=== PATIENT | female | born 1930 | race Caucasian/White ===

== ENCOUNTER 2016-08-25 19:17 | Emergency (ER) | payer OTHER, BC ==
[~2016-08-25] VITALS: Ht 170.2 cm; Wt 92.5 kg
[~2016-08-25 19:17] MED LIST: ASPI81TA28 PO; B-COTAB18 PO; CHOL100010 PO; COEN1CAP PO; DILT-203 PO; FURO-85 PO; GLUC-172 PO; NTRGSL/4 UT; PANT1TAB48 PO; POTA10CA28 PO; RAMI2.5C PO; SALI0.6517; WARF6TAB5 PO
[2016-08-25 19:22] VITALS: TEMP 37; Ht 170.2 cm; Wt 92.5 kg
--- NOTE | 2016-08-25 21:07 | DIAGNOSTIC IMAGING REPORT ---
LEFT PELVIS/UNILATERAL HIP 2-3VIEWS CLINICAL HISTORY: Left hip pain. Unable to weight. No known trauma. COMPARISON: None FINDINGS: The sacroiliac joints and symphysis pubis are intact. There is no acute fracture within the pelvis or hips. Moderate bilateral hip arthritis, greater on the left is noted. Degenerative changes at the symphysis pubis are noted. IMPRESSION: 1. No acute fracture within the pelvis or hips. 2. Moderate arthritis of the bilateral hips, greater on the left. Electronically signed by: Jair Hurtado M.D. 08/25/2016 9:05 PM Dictated Date/Time: 08/25/2016 9:03 PM
[2016-08-25] MEDS ORDERED: VTMD1000 PO (21:27)
[2016-08-25] MEDS ORDERED: RAMI5CAP PO (21:27)
[2016-08-25] MEDS: OXYCODONE HCL IR 5 MG TAB (IMMEDIATE RELEASE) PO STA ×2 (21:28→21:48)
[2016-08-25] MEDS ORDERED: OXYCODONE IR HOME PACK PO ONE (21:45)
[2016-08-25] MEDS ORDERED: ONDANSETRON 4MG OD TAB PO ONE (21:45)
[2016-08-25 22:46] VITALS: BP 188/79; PULSE 61; O2SAT 93
--- NOTE | 2016-08-26 02:12 | EMERGENCY ROOM VISIT NOTE ---
History Report prepared by Aure: Mat Rodriguez Under the Supervision of: Dr. Julio Mckeon D.O. First contact with patient: 19:20 Chief Complaint: HIP PAIN Stated Complaint: HIP PAIN History of Present Illness The patient is an 86 year old female who presents to the Emergency Room with complaints of worsening pain in her right hip that began several days prior to arrival. The patient states that she has been having issues with her hip for several days, but it began to worsen throughout the day today. Today she noticed that she was having trouble walking secondary to her hip pain. She has not had any falls and has had no hip surgeries in the past. She denies any unusual back pains aside from her normal spasms that she has had for years. She lives in [place] with her . The patient denies headache, change in vision, fevers, chest pain, shortness of breath, nausea, vomiting, diarrhea, pain with urination, and melena. Source of History: patient Onset: Several days [employer] Position: other (Left Hip) Timing: worsening Associated Symptoms: No back pain, No fevers Review of Systems See HPI for pertinent positives & negatives. A total of 10 systems reviewed and were otherwise negative. Past Medical & Surgical Medical Problems: (1) Atrial flutter (2) Benign essential hypertension (3) CHF (congestive heart failure) (4) Unstable angina Surgical Problems: (1) Stented coronary artery Family History No significant family history Social History Smoking Status: Never Smoker Drug Use: none Marital Status: Housing Status: lives with significant other Occupation Status: retired Current/Historical Medications Scheduled Aspirin (Aspirin Ec), 81 MG PO DAILY B-Complex Vitamins (Vitamin B Complex), 1 TAB PO DAILY Cholecalciferol (Vitamin D3), 2,000 UNIT PO QAM Coenzyme Q10 (Ubidecarenone) (Co Q10), 1 CAP PO DAILY Furosemide (Lasix), 20 MG PO BID Glucosamine Sulfate (Glucosamine), 500 MG PO DAILY Nitroglycerin (Nitrostat), 0.4 MG UT PRN Pantoprazole (Protonix), 40 MG PO DAILY Potassium Chloride (Micro-K Ext Rel), 10 MEQ PO DAILY Ramipril (Ramipril), 5 MG PO BID Warfarin Sod (Jantoven), 6 MG PO QPM Allergies Coded Allergies: Morphine (Verified Allergy, Unknown, MAKES HER SICK, 08/25/16) Tetracycline (Verified Allergy, Unknown, ., 08/25/16) Physical Exam Vital Signs Date Time Temp Pulse Resp B/P Pulse Ox O2 Delivery O2 Flow Rate FiO2 08/25/16 22:46 61 16 188/79 93 08/25/16 22:31 61 16 188/79 93 Room Air 08/25/16 20:33 62 16 190/88 93 Room Air 08/25/16 19:22 37.0 56 16 174/73 94 Room Air Physical Exam GENERAL: laying in bed, well appearing, well nourished, no distress, non-toxic EYE EXAM: normal conjunctiva. OROPHARYNX: mucous membranes are moist LUNGS: Clear to auscultation. Normal chest wall mechanics HEART: no murmurs, S1 normal and S2 normal ABDOMEN: abdomen soft, non-tender, normo-active bowel sounds, no masses, no rebound or guarding. BACK: Back is symmetrical on inspection and there is no deformity, no midline tenderness, no CVA tenderness. UPPER EXTREMITIES: upper extremities are grossly normal. LOWER EXTREMITIES: Left hip with acute tenderness, posteriorly. Full ROM of left hip, knee, and ankle. DP 2/4 and sensation in tact. NEURO EXAM: Normal sensorium Medical Decision & Procedures ER Provider Diagnostic Interpretation: Xray results per the radiologist and my interpretation. LEFT PELVIS/UNILATERAL HIP 2-3VIEWS CLINICAL HISTORY: Left hip pain. Unable to weight. No known trauma. COMPARISON: None FINDINGS: The sacroiliac joints and symphysis pubis are intact. There is no acute fracture within the pelvis or hips. Moderate bilateral hip arthritis, greater on the left is noted. Degenerative changes at the symphysis pubis are noted. IMPRESSION: 1. No acute fracture within the pelvis or hips. 2. Moderate arthritis of the bilateral hips, greater on the left. Electronically signed by: Jair Hurtado M.D. 08/25/2016 9:05 PM Dictated Date/Time: 08/25/2016 9:03 PM Medications Administered Medications (Trade) Dose Ordered Sig/Eron Route Start Time Stop Time Status Last Admin Dose Admin Oxycodone HCl (Roxicodone Immediate Rel Tab) 5 mg NOW STAT PO 08/25/16 21:01 08/25/16 21:02 DC 08/25/16 21:48 5 MG Ondansetron HCl (Zofran Odt) 4 mg ONE ONCE PO 2/21/17 21:45 08/25/16 21:46 DC 08/25/16 21:48 4 MG Oxycodone HCl (Roxicodone Immediate Rel 5MG Home Pack) 1 homepack UD ONCE PO 08/25/16 21:45 08/25/16 21:46 DC 08/25/16 22:40 1 HOMEPACK ED Course ED COURSE: Vital signs were reviewed and showed normal vitals. The patients medical record was reviewed The above diagnostic studies were performed and reviewed. ED treatments and interventions as stated above. 1940: The patient was evaluated in room A10. A complete history and physical examination was performed. 2100: Ordered Oxycodone HCl 5 mg PO. 2144: Ordered Oxycodone HCl 1 homepack PO, Zofran 4 mg PO. 2138: Upon reevaluation, the patient is currently declining Oxy IR and would like to go home.I discussed my findings with the patient and sh understands and agrees with the treatment plan. Based on the patients age, coexisting illnesses, exam and lab findings the decision to treat as an outpatient was made. The patient remained stable while under my care. The patient appeared well at the time of discharge. Medical Decision Differential diagnosis: Etiologies such as fracture, dislocation, neurovascular compromise, compartment syndrome, soft tissue injury, as well as others were entertained. Patient is an 86 year old female who presents the ER for left hip pain. No trauma. No fevers. On exam she is acute reproducible tenderness just posterior to the left. This does appear to be in the bursa. She does have full range of motion of the hip knee and ankle with mild pain with range of motion of the hip. Joint does not appear to be infected. Vitals are stable. Patient was given oral OxyIR and had significant improvement of her pain. She was able to ambulate following x-rays of her pelvis and hip which showed no acute fractures. She does have severe arthritis. She is discharged with OxyIR and instructed to follow up with orthopedics within the next week. Discussed with Pt concerning signs and symptoms to watch out for. Pt was instructed to follow up with their PCP and discussed with the patient their option to return to the ED at anytime for persistent or worsening symptoms. The appropriate anticipatory guidance and out-patient management, including indications for return to the emergency department, were explained at length to the patient and understood. Impression Primary Impression: Hip pain, left Additional Impression: Arthritis Scribe Attestation The scribe's documentation has been prepared under my direction and personally reviewed by me in its entirety. I confirm that the note above accurately reflects all work, treatment, procedures, and medical decision making performed by me. Departure Information Dispostion Home / Self-Care Referrals Luke Gardiner M.D. (PCP) Forms HOME CARE DOCUMENTATION FORM, IMPORTANT VISIT INFORMATION, WORK / SCHOOL INSTRUCTIONS Patient Instructions My [facility] Additional Instructions Please follow up with your primary care doctor with in the next 24 hours. Any worsening of your symptoms, please return to the ED immediately. This includes worsening pain, fevers greater than 100.4, inability to walk, or any other concerning signs or symptoms from your standpoint. You were given medications during this visit that will inhibit your ability to drive, operate machinery and work. Please do NOT drive, operate machinery or work for the next 12hrs. You were also given a tablets for OXY IR. While taking this medication you should also not drive, operate machinery and or work. Problem Qualifiers
[2017-01-25] MEDS ORDERED: WARF6TAB5 PO (15:23)
[2017-01-25] MEDS ORDERED: TRAM-10 PO (15:32)
[2017-04-05] MEDS ORDERED: CEPH500C PO (13:23)
[2017-04-07] MEDS ORDERED: CIPR1TAB11 PO (13:42)
== END 2016-08-25 22:51 | disposition home or self-care (01) ==
LOC: EDBD 19:17 → C.EDA 19:17
DX: M25.552 Pain in left hip (principal); M19.90 Unspecified osteoarthritis, unspecified site; I48.92 Unspecified atrial flutter; I10 Essential (primary) hypertension; I50.9 Heart failure, unspecified; I20.0 Unstable angina; Z79.82 Long term (current) use of aspirin; M08.451 Pauciarticular juvenile rheumatoid arthritis, right hip; M08.4 Pauciarticular juvenile rheumatoid arthritis

== ENCOUNTER → 2016-09-07 | Outpatient (CLI) | payer OTHER, BC ==
[~2016-09-07] MED LIST changes: +ACET-1047 PO; +CEPH500C PO; -CHOL100010 PO; +CIPR1TAB11 PO; -DILT-203 PO; +MAGN400T6 PO; +MISC1CAP69 PO; +MULT-723 PO; -RAMI2.5C PO; +RAMI5CAP PO; -SALI0.6517; +TRAM-10 PO; +VTMD1000 PO
[2016-09-07 09:56] LABS: URINE APPEARANCE CLEAR (CLEAR); URINE BILIRUBIN NEG (NEG); URINE COLOR YELLOW; URINE NITRITE NEG (NEG); URINE PH 5.5 (4.5-7.5); URINE SPECIFIC GRAVITY 1.014 (1.000-1.030); UROBILINOGEN NEG (NEG)
[2016-09-07 09:58] LABS: MANUAL MICROSCOPIC REQUIRED? NO; REVIEW REQ? NO
== END | disposition home or self-care (01) ==
LOC: C.LABVPSUW 09:07
PROVIDERS: ATTEND Nurse Practitioner
DX: R30.0 Dysuria (principal)

== ENCOUNTER 2016-12-03 17:30 | Emergency (ER) | payer OTHER, BC ==
[~2016-12-03] VITALS: Ht 167.6 cm; Wt 93.8 kg
[~2016-12-03 17:30] MED LIST changes: -ACET-1047 PO; -CEPH500C PO; -CIPR1TAB11 PO; -MAGN400T6 PO; -MISC1CAP69 PO; -MULT-723 PO; -TRAM-10 PO
[2016-12-03 17:35] VITALS: O2SAT 97; Ht 167.6 cm; Wt 93.8 kg
--- NOTE | 2016-12-03 18:07 | EMERGENCY ROOM VISIT NOTE ---
History Report prepared by Aure: Alejandra Ash Under the Supervision of: Dr. Rod Aguilar M.D. First contact with patient: 17:54 Chief Complaint: SHORTNESS OF BREATH Stated Complaint: SOB W/EXERTION Nursing Triage Summary: Patient presents from residence at [place] at [facility] in the independent housing via ALS ambulance following an episode of shortness of breath while walking upstairs Reportedly the patient was carrying an item with a staff member while walking up the stairs when she became short of breath and "her lips turned purple" Patient has a history of CHF and takes Lasix but has not taken the Lasix for the last two days Patient lung sounds are clear at present Patient has +2/+3 pitting edema from thighs to feet, she states this is normal for her History of Present Illness The patient is an 86 year old female who presents to the Emergency Room via ALS with complaints of persistent shortness of breath that began several days ago. The patient reports that today she took 40 mg of Lasix, and notes that she missed her doses the previous two days. The patient notes increased shortness of breath with exertion. She states that today she became short of breath with walking up the stairs and notes that there were reports that her lips turned blue. The patient reports that she takes Coumadin and states she uses supplemental oxygen at night. She denies any history of lung disease, but states that she is a previous smoker. The patient denies any increased cough or fever. Source of History: patient Onset: several days ago Position: other (global) Quality: other (shortness of breath) Timing: other (persistent) Associated Symptoms: No fevers, No cough Note: Associated Symptoms: blue lips Review of Systems See HPI for pertinent positives & negatives. A total of 10 systems reviewed and were otherwise negative. Past Medical & Surgical Medical Problems: (1) Atrial flutter (2) Benign essential hypertension (3) CHF (congestive heart failure) (4) Unstable angina Surgical Problems: (1) Stented coronary artery Family History No significant family history Social History Smoking Status: Unknown if Ever Smoked Drug Use: none Marital Status: Housing Status: lives with significant other Occupation Status: retired Current/Historical Medications Scheduled Aspirin (Aspirin Ec), 81 MG PO DAILY B-Complex Vitamins (Vitamin B Complex), 1 TAB PO DAILY Coenzyme Q10 (Ubidecarenone) (Co Q10), 1 CAP PO DAILY Furosemide (Lasix), 40 MG PO DAILY Glucosamine Sulfate (Glucosamine), 500 MG PO DAILY Nitroglycerin (Nitrostat), 0.4 MG UT PRN Pantoprazole (Protonix), 40 MG PO DAILY Potassium Chloride (Micro-K Ext Rel), 10 MEQ PO DAILY Ramipril (Ramipril), 5 MG PO BID Warfarin Sod (Jantoven), 6 MG PO QPM Allergies Coded Allergies: Morphine (Verified Allergy, Unknown, MAKES HER SICK, 12/03/16) Tetracycline (Verified Allergy, Unknown, ., 12/03/16) Physical Exam Vital Signs Date Time Temp Pulse Resp B/P (MAP) Pulse Ox O2 Delivery O2 Flow Rate FiO2 12/03/16 18:22 Room Air 12/03/16 17:39 61 12/03/16 17:35 36.8 64 16 207/88 97 Room Air 12/03/16 17:35 97 Room Air 12/03/16 17:35 97 Room Air Physical Exam GENERAL: Patient is in no acute distress. HEENT: No acute trauma, normocephalic atraumatic, mucous membranes moist, no nasal congestion, no scleral icterus. NECK: No stridor, no adenopathy, no meningismus, trachea is midline. LUNGS: Decreased breath sounds, but breath sounds are clear, no wheezing or rhonchi, breath sounds are equal. HEART: 2/6 systolic murmur with a regular rate and rhythm ABDOMEN: Soft, nontender, bowel sounds positive, no hernias, no peritonitis. EXTREMITIES: No cyanosis or edema, full range of motion of all the joints without pain or difficulty, no signs for acute trauma. NEUROLOGIC: Oriented x 3, no acute motor or sensory deficits, no focal weakness. SKIN: No rash, no jaundice, no diaphoresis. Medical Decision & Procedures ER Provider Diagnostic Interpretation: Radiology results as stated below per my review and radiologist interpretation: CHEST ONE VIEW PORTABLE HISTORY: EVALUATE RESPIRATORY DISTRESS.DYSPNEA COMPARISON: Chest 06/07/2015. FINDINGS: The heart remains mildly enlarged. Left-sided single lead pacemaker. No pleural effusions. No pneumothorax. The lungs are clear. No evidence for pulmonary edema. IMPRESSION: Stable mild cardiomegaly. Electronically signed by: Spike Jackson M.D. 12/03/2016 6:24 PM Dictated Date/Time: 12/03/2016 6:23 PM CHEST CTA for PULMONARY ARTERIES CT DOSE: 384.79 mGy.cm HISTORY: Respiratory distress. Dyspnea. TECHNIQUE: Multiaxial CT images of the chest were performed following the intravenous administration of contrast to evaluate the pulmonary arteries. Maximal intensity projection images were also obtained. COMPARISON STUDY: Chest 12/03/2016. FINDINGS: Normal caliber thoracic aorta. Evaluation for dissection is nondiagnostic due to the lack of contrast within the aorta. The heart is enlarged. Trace pericardial fluid. Small hiatus hernia. Heterogeneous perfusion within the distal left main pulmonary artery without definite filling defect to suggest a pulmonary embolus. Nondiagnostic evaluation of the right lower lobe subsegmental pulmonary arteries due to the motion artifact. The remaining pulmonary arteries show no evidence for pulmonary embolus. A few calcified granulomas within the left upper lobe anteriorly. Small lobular density within the left upper lobe measuring 1 cm. This has a branching pattern and favors an impacted distal bronchus. A few small tree-in-bud nodular opacities within the base of the left lower lobe a 4 mm nodule within the superior segment of the left lower lobe on image 188. 4 mm nodule within the right middle lobe on image 128. Cluster of calcified granulomas within the right middle lobe. Partial opacification of a distal right lower lobe bronchus. There are 2 adjacent nodules within the right lower lobe with the largest measuring 5 mm on image 108. Left-sided pacemaker. No pneumothorax. A few hypodense lesions within the liver measuring 1.2 cm. These favor cysts. There is also a 3.3 cm and 1.3 cm hypodense lesions within the spleen. Trace left pleural effusion. A 2.5 cm left thyroid nodule. No mediastinal or hilar lymphadenopathy. IMPRESSION: 1. No evidence for pulmonary embolus with limitations as described above. 2. Trace pericardial effusion and trace left pleural effusion. 3. Cardiomegaly. 4. A few scattered nodules within the lungs which favor impaction of a few distal bronchi. Therefore this favors a mild infectious bronchiolitis. However, one year chest CT follow up is recommended to ensure stability/resolution. 5. Nonspecific splenic and hypodense lesions. Electronically signed by: Spike Jackson M.D. 12/03/2016 7:28 PM Dictated Date/Time: 12/03/2016 7:17 PM Laboratory Results 12/03/16 18:00 Red Blood Count 4.33, Mean Corpuscular Volume 92.4, Mean Corpuscular Hemoglobin 30.0, Mean Corpuscular Hemoglobin Concent 32.5, Mean Platelet Volume 10.7, Neutrophils (%) (Auto) 66.0, Lymphocytes (%) (Auto) 21.7, Monocytes (%) (Auto) 9.0, Eosinophils (%) (Auto) 2.8, Basophils (%) (Auto) 0.3, Neutrophils # (Auto) 4.01, Lymphocytes # (Auto) 1.32, Monocytes # (Auto) 0.55, Eosinophils # (Auto) 0.17, Basophils # (Auto) 0.02 12/03/16 18:00 Test 12/03/16 18:00 White Blood Count 6.08 K/uL (4.8-10.8) Red Blood Count 4.33 M/uL (4.2-5.4) Hemoglobin 13.0 g/dL (12.0-16.0) Hematocrit 40.0 % (37-47) Mean Corpuscular Volume 92.4 fL (80-100) Mean Corpuscular Hemoglobin 30.0 pg (25-34) Mean Corpuscular Hemoglobin Concent 32.5 g/dl (32-36) Platelet Count 185 K/uL (130-400) Mean Platelet Volume 10.7 fL (7.4-10.4) Neutrophils (%) (Auto) 66.0 % Lymphocytes (%) (Auto) 21.7 % Monocytes (%) (Auto) 9.0 % Eosinophils (%) (Auto) 2.8 % Basophils (%) (Auto) 0.3 % Neutrophils # (Auto) 4.01 K/uL (1.4-6.5) Lymphocytes # (Auto) 1.32 K/uL (1.2-3.4) Monocytes # (Auto) 0.55 K/uL (0.11-0.59) Eosinophils # (Auto) 0.17 K/uL (0-0.5) Basophils # (Auto) 0.02 K/uL (0-0.2) RDW Standard Deviation 54.2 fL (36.4-46.3) RDW Coefficient of Variation 15.9 % (11.5-14.5) Immature Granulocyte % (Auto) 0.2 % Immature Granulocyte # (Auto) 0.01 K/uL (0.00-0.02) Prothrombin Time 14.0 SECONDS (9.0-12.0) Prothromb Time International Ratio 1.3 (0.9-1.1) Activated Partial Thromboplast Time 26.9 SECONDS (21.0-31.0) Partial Thromboplastin Ratio 1.0 Anion Gap 7.0 mmol/L (3-11) Est Creatinine Clear Calc Drug Dose 51.2 ml/min Estimated GFR () 66.2 Estimated GFR (Non- 57.1 BUN/Creatinine Ratio 17.1 (10-20) Calcium Level 8.8 mg/dl (8.5-10.1) Pro-B-Type Natriuretic Peptide 4201 pg/ml (0-1800) Laboratory results reviewed by me. ECG Indication: SOB/dyspnea Rate (beats per minute): 60 Rhythm: other (ventricular pacemaker) Findings: no acute ischemic change, no ectopy ED Course 1754: The patient was evaluated in room A11B. A complete history and physical exam was performed. 1935: I reevaluated the patient and she is resting comfortably. I discussed the exam findings with her and I discussed the treatment plan. She verbalized complete understanding and agreement. She is ready to go home. Medical Decision The patient is an 86 year old female who presents to the ED with complaints of shortness of breath. Differential diagnoses considered include fluid overload, CHF, cardiac ischemia, cardiac dysrhythmia, anemia, electrolyte imbalance, pneumonia, bronchitis. There is no leukocytosis or concerning anemia. INR is subtherapeutic at 1.3. This is low for someone using Coumadin. No significant electrolyte abnormality or kidney failure. BNP was elevated consistent with fluid overload. EKG shows a ventricular pacemaker, no acute ischemia. Chest film shows no pneumonia or CHF. There was no pneumothorax. Chest CT showed no PE, there were some potential nodules seen for which follow-up was suggested. A bronchiolitis was also thought possible. The patient has been diuresing since arrival. She had taken Lasix prior to arrival. She feels improved. She admits that she had not taken her Lasix for a few days, and in the past, she has had dyspnea when not using her Lasix. She denies any chest pain with today's event. She has not had fever or increased cough. The patient would like to be discharged, I think this is reasonable. I will have her double her Coumadin dose tonight as she is subtherapeutic. A repeat INR in several days has been suggested. She will take her Lasix as prescribed, she has agreed to take it as she realizes she needs it. If she has worsening dyspnea, any chest pain or fever, she will report back to the ER for reassessment. Medication Reconciliation: I attest that I have personally reviewed the patient' s current medication list. Blood Pressure Screening: Patient was found to have an elevated blood pressure and was referred to their primary doctor for recheck and further treatment. Impression Primary Impression: Shortness of breath Additional Impression: CHF (congestive heart failure) Scribe Attestation The scribe's documentation has been prepared under my direction and personally reviewed by me in its entirety. I confirm that the note above accurately reflects all work, treatment, procedures, and medical decision making performed by me. Departure Information Dispostion Home / Self-Care Referrals [facility] (PCP) Forms HOME CARE DOCUMENTATION FORM, IMPORTANT VISIT INFORMATION Patient Instructions My [facility] Additional Instructions be sure to take your lasix as prescribed see your [facility] md for a recheck--call for an appt return for worsening breathing or fever see your doctor to have your lungs followed by xray--some potential nodules were noted today for which good followup was suggested Problem Qualifiers
[2016-12-03 18:19] LABS: BASO % 0.3 %; BASO ABS # 0.02 K/uL (0-0.2); COMPLETE YES; EOS % 2.8 %; IG% 0.2 %; LYMPH % 21.7 %; LYMPH ABS # 1.32 K/uL (1.2-3.4); MEAN CELL VOLUME 92.4 fL (80-100); MEAN CORPUSCULAR HGB CONC 32.5 g/dl (32-36); MEAN PLATELET VOLUME 10.7 fL (7.4-10.4); PLATELET COUNT 185 K/uL (130-400); RED BLOOD COUNT 4.33 M/uL (4.2-5.4); WHITE BLOOD COUNT 6.08 K/uL (4.8-10.8)
--- NOTE | 2016-12-03 18:26 | DIAGNOSTIC IMAGING REPORT ---
CHEST ONE VIEW PORTABLE HISTORY: EVALUATE RESPIRATORY DISTRESS.DYSPNEA COMPARISON: Chest 06/07/2015. FINDINGS: The heart remains mildly enlarged. Left-sided single lead pacemaker. No pleural effusions. No pneumothorax. The lungs are clear. No evidence for pulmonary edema. IMPRESSION: Stable mild cardiomegaly. Electronically signed by: Spike Jackson M.D. 12/03/2016 6:24 PM Dictated Date/Time: 12/03/2016 6:23 PM
[2016-12-03 18:31] LABS: BUN/CREATININE RATIO 17.1 (10-20); CALCIUM 8.8 mg/dl (8.5-10.1); CREATININE 0.91 mg/dl (0.60-1.20); INR 1.3 (0.9-1.1); POTASSIUM 3.8 mmol/L (3.5-5.1)
[2016-12-03] MEDS ORDERED: OPTIRAY 320 IV PRN (18:45)
--- NOTE | 2016-12-03 19:29 | DIAGNOSTIC IMAGING REPORT ---
CHEST CTA for PULMONARY ARTERIES CT DOSE: 384.79 mGy.cm HISTORY: Respiratory distress. Dyspnea. TECHNIQUE: Multiaxial CT images of the chest were performed following the intravenous administration of contrast to evaluate the pulmonary arteries. Maximal intensity projection images were also obtained. COMPARISON STUDY: Chest 12/03/2016. FINDINGS: Normal caliber thoracic aorta. Evaluation for dissection is nondiagnostic due to the lack of contrast within the aorta. The heart is enlarged. Trace pericardial fluid. Small hiatus hernia. Heterogeneous perfusion within the distal left main pulmonary artery without definite filling defect to suggest a pulmonary embolus. Nondiagnostic evaluation of the right lower lobe subsegmental pulmonary arteries due to the motion artifact. The remaining pulmonary arteries show no evidence for pulmonary embolus. A few calcified granulomas within the left upper lobe anteriorly. Small lobular density within the left upper lobe measuring 1 cm. This has a branching pattern and favors an impacted distal bronchus. A few small tree-in-bud nodular opacities within the base of the left lower lobe a 4 mm nodule within the superior segment of the left lower lobe on image 188. 4 mm nodule within the right middle lobe on image 128. Cluster of calcified granulomas within the right middle lobe. Partial opacification of a distal right lower lobe bronchus. There are 2 adjacent nodules within the right lower lobe with the largest measuring 5 mm on image 108. Left-sided pacemaker. No pneumothorax. A few hypodense lesions within the liver measuring 1.2 cm. These favor cysts. There is also a 3.3 cm and 1.3 cm hypodense lesions within the spleen. Trace left pleural effusion. A 2.5 cm left thyroid nodule. No mediastinal or hilar lymphadenopathy. IMPRESSION: 1. No evidence for pulmonary embolus with limitations as described above. 2. Trace pericardial effusion and trace left pleural effusion. 3. Cardiomegaly. 4. A few scattered nodules within the lungs which favor impaction of a few distal bronchi. Therefore this favors a mild infectious bronchiolitis. However, one year chest CT follow up is recommended to ensure stability/resolution. 5. Nonspecific splenic and hypodense lesions. Electronically signed by: Spike Jackson M.D. 12/03/2016 7:28 PM Dictated Date/Time: 12/03/2016 7:17 PM
[2016-12-03 19:51] VITALS: BP 207/88; PULSE 61; TEMP 36.8; O2SAT 97
[2017-01-25] MEDS ORDERED: WARF6TAB5 PO (15:23)
[2017-01-25] MEDS ORDERED: TRAM-10 PO (15:32)
[2017-04-05] MEDS ORDERED: CEPH500C PO (13:23)
[2017-04-07] MEDS ORDERED: CIPR1TAB11 PO (13:42)
== END 2016-12-03 20:27 | disposition home or self-care (01) ==
LOC: EDBD 17:30 → C.EDA 17:31
DX: I50.9 Heart failure, unspecified (principal); Z79.82 Long term (current) use of aspirin; Z79.899 Other long term (current) drug therapy; Z79.01 Long term (current) use of anticoagulants; I48.92 Unspecified atrial flutter; I10 Essential (primary) hypertension; Z95.5 Presence of coronary angioplasty implant and graft

== ENCOUNTER 2016-12-08 11:57 | Observation (INO) | payer OTHER, BC ==
[~2016-12-08] VITALS: Ht 170.2 cm; Wt 86.5 kg
[~2016-12-08 11:57] MED LIST changes: -VTMD1000 PO
[2016-12-08 12:31] LABS: BASO % 0.6 %; BASO ABS # 0.04 K/uL (0-0.2); COMPLETE YES; EOS % 1.7 %; HEMATOCRIT 43.3 % (37-47); IG% 0.1 %; LYMPH ABS # 1.25 K/uL (1.2-3.4); MEAN CELL VOLUME 91.5 fL (80-100); MEAN CORPUSCULAR HGB CONC 31.6 g/dl (32-36); MEAN PLATELET VOLUME 10.4 fL (7.4-10.4); MONO % 7.9 %; NEUT % 71.7 %; PLATELET COUNT 197 K/uL (130-400); RED BLOOD COUNT 4.73 M/uL (4.2-5.4); WHITE BLOOD COUNT 6.95 K/uL (4.8-10.8)
[2016-12-08 12:37] LABS: INR 1.8 (0.9-1.1); PROTHROMBIN TIME (PATIENT) 19.5 SECONDS (9.0-12.0)
[2016-12-08 12:46] LABS: BLOOD UREA NITROGEN 23 mg/dl (7-18); BUN/CREATININE RATIO 23.3 (10-20); CALCIUM 8.8 mg/dl (8.5-10.1); CARBON DIOXIDE 34 mmol/L (21-32); CHLORIDE 106 mmol/L (98-107); CREATININE 0.98 mg/dl (0.60-1.20); GLUCOSE 87 mg/dl (70-99); POTASSIUM 3.8 mmol/L (3.5-5.1); SODIUM 145 mmol/L (136-145)
[2016-12-08 12:51] LABS: CKMB/CK RATIO 3.6 (0-3.0)
--- NOTE | 2016-12-08 13:25 | DIAGNOSTIC IMAGING REPORT ---
CHEST ONE VIEW PORTABLE CLINICAL HISTORY: Chest pain. COMPARISON STUDY: Chest radiograph and chest CT December 03, 2016. FINDINGS: A single lead left pacemaker is unchanged in position. Moderate cardiomegaly is noted without evidence of pulmonary edema. No pneumothorax or pleural effusion is identified. There is no consolidation to suggest pneumonia. IMPRESSION: No acute cardiopulmonary findings. No change in appearance of the chest. Electronically signed by: Jair Hurtado M.D. 12/08/2016 1:24 PM Dictated Date/Time: 12/08/2016 1:22 PM
--- NOTE | 2016-12-08 13:30 | EMERGENCY ROOM VISIT NOTE ---
History Report prepared by Aure: Lin Noland Under the Supervision of: Dr. Julio Mckeon D.O. First contact with patient: 11:59 Stated Complaint: CHEST PAIN History of Present Illness The patient is a 86 year old female who presents to the Emergency Room via EMS with complaints of resolved mid-chest pain starting about 2 hours ago. She reports pain radiation from mid-back to mid-chest. She describes it to be a pressure-like pain. She denies any exertion at the onset of her symptoms. She was given 1 Nitro and 324 mg Aspirin via EMS with relief. She currently denies any pain. Pt denies any recent trauma or falls, headache, change in vision, fevers, arm or jaw pain, nausea, vomiting, diarrhea, pain with urination, and melena. She has chronic shortness of breath which has not worsened. She wears oxygen at night. She has a pacemaker which was placed in June 2016. She has a history of congestive heart failure. She is on Coumadin. She denies any history of problems with the aorta. She has a history of myocardial infarction and denies any similar pain today. Source of History: patient Onset: about 2 hours ago Position: chest (mid) Quality: pressure Timing: resolved Modifying Factors (Relieving): other (1 Nitro and 324 mg Aspirin with relief ) Associated Symptoms: + SOB (chronic), No fevers, No headache, No nausea, No vomiting, No diarrhea Review of Systems See HPI for pertinent positives & negatives. A total of 10 systems reviewed and were otherwise negative. Past Medical & Surgical Medical Problems: (1) Atrial flutter (2) Atrial flutter, paroxysmal (3) Benign essential hypertension (4) CHF (congestive heart failure) (5) Unstable angina Surgical Problems: (1) Stented coronary artery Family History No significant family history Social History Smoking Status: Unknown if Ever Smoked Drug Use: none Marital Status: Housing Status: lives with significant other Occupation Status: retired Current/Historical Medications Scheduled Aspirin (Aspirin Ec), 81 MG PO DAILY B-Complex Vitamins (Vitamin B Complex), 1 TAB PO DAILY Coenzyme Q10 (Ubidecarenone) (Co Q10), 1 CAP PO DAILY Furosemide (Lasix), 40 MG PO DAILY Glucosamine Sulfate (Glucosamine), 500 MG PO DAILY Nitroglycerin (Nitrostat), 0.4 MG UT PRN Pantoprazole (Protonix), 40 MG PO DAILY Potassium Chloride (Micro-K Ext Rel), 10 MEQ PO DAILY Ramipril (Ramipril), 5 MG PO BID Warfarin Sod (Jantoven), 6 MG PO QPM Allergies Coded Allergies: Morphine (Verified Allergy, Unknown, MAKES HER SICK, 12/08/16) Tetracycline (Verified Allergy, Unknown, ., 12/08/16) Physical Exam Vital Signs Date Time Temp Pulse Resp B/P (MAP) Pulse Ox O2 Delivery O2 Flow Rate FiO2 12/08/16 13:51 98 Room Air 12/08/16 13:30 60 22 178/74 96 Room Air 12/08/16 13:06 62 22 135/76 98 Room Air 12/08/16 12:12 60 12/08/16 12:09 36.5 63 18 176/80 95 Room Air 12/08/16 12:09 95 Room Air 12/08/16 12:09 95 Room Air Physical Exam GENERAL: Sitting up in bed disheveled, non-toxic EYE EXAM: normal conjunctiva OROPHARYNX: no exudate, no erythema, lips, buccal mucosa, and tongue normal and mucous membranes are moist NECK: supple, no nuchal rigidity, no adenopathy, non-tender CHEST: Pacemaker located in left upper chest LUNGS: Clear to auscultation. Normal chest wall mechanics HEART: no murmurs, S1 normal and S2 normal ABDOMEN: abdomen soft, non-tender, normo-active bowel sounds, no masses, no rebound or guarding. BACK: Back is symmetrical on inspection and there is no deformity, no midline tenderness, no CVA tenderness. SKIN: no rashes and no bruising UPPER EXTREMITIES: upper extremities are grossly normal. Radial pulses are equal bilaterally LOWER EXTREMITIES: No pitting edema. Calves are equal bilaterally NEURO EXAM: Normal sensorium, cranial nerves II-XII grossly intact, normal speech, no gross weakness of arms, no gross weakness of legs. Medical Decision & Procedures ER Provider Diagnostic Interpretation: X-ray results as stated below per my and the radiologist's interpretation: CHEST ONE VIEW PORTABLE CLINICAL HISTORY: Chest pain. COMPARISON STUDY: Chest radiograph and chest CT December 03, 2016. FINDINGS: A single lead left pacemaker is unchanged in position. Moderate cardiomegaly is noted without evidence of pulmonary edema. No pneumothorax or pleural effusion is identified. There is no consolidation to suggest pneumonia. IMPRESSION: No acute cardiopulmonary findings. No change in appearance of the chest. Electronically signed by: Jair Hurtado M.D. 12/08/2016 1:24 PM Dictated Date/Time: 12/08/2016 1:22 PM Laboratory Results 12/08/16 12:17 Red Blood Count 4.73, Mean Corpuscular Volume 91.5, Mean Corpuscular Hemoglobin 29.0, Mean Corpuscular Hemoglobin Concent 31.6, Mean Platelet Volume 10.4, Neutrophils (%) (Auto) 71.7, Lymphocytes (%) (Auto) 18.0, Monocytes (%) (Auto) 7.9, Eosinophils (%) (Auto) 1.7, Basophils (%) (Auto) 0.6, Neutrophils # (Auto) 4.98, Lymphocytes # (Auto) 1.25, Monocytes # (Auto) 0.55, Eosinophils # (Auto) 0.12, Basophils # (Auto) 0.04 12/08/16 12:17 Test 12/08/16 12:17 White Blood Count 6.95 K/uL (4.8-10.8) Red Blood Count 4.73 M/uL (4.2-5.4) Hemoglobin 13.7 g/dL (12.0-16.0) Hematocrit 43.3 % (37-47) Mean Corpuscular Volume 91.5 fL (80-100) Mean Corpuscular Hemoglobin 29.0 pg (25-34) Mean Corpuscular Hemoglobin Concent 31.6 g/dl (32-36) Platelet Count 197 K/uL (130-400) Mean Platelet Volume 10.4 fL (7.4-10.4) Neutrophils (%) (Auto) 71.7 % Lymphocytes (%) (Auto) 18.0 % Monocytes (%) (Auto) 7.9 % Eosinophils (%) (Auto) 1.7 % Basophils (%) (Auto) 0.6 % Neutrophils # (Auto) 4.98 K/uL (1.4-6.5) Lymphocytes # (Auto) 1.25 K/uL (1.2-3.4) Monocytes # (Auto) 0.55 K/uL (0.11-0.59) Eosinophils # (Auto) 0.12 K/uL (0-0.5) Basophils # (Auto) 0.04 K/uL (0-0.2) RDW Standard Deviation 52.7 fL (36.4-46.3) RDW Coefficient of Variation 15.5 % (11.5-14.5) Immature Granulocyte % (Auto) 0.1 % Immature Granulocyte # (Auto) 0.01 K/uL (0.00-0.02) Prothrombin Time 19.5 SECONDS (9.0-12.0) Prothromb Time International Ratio 1.8 (0.9-1.1) Anion Gap 5.0 mmol/L (3-11) Est Creatinine Clear Calc Drug Dose 47.2 ml/min Estimated GFR () 60.5 Estimated GFR (Non- 52.2 BUN/Creatinine Ratio 23.3 (10-20) Calcium Level 8.8 mg/dl (8.5-10.1) Total Bilirubin 0.7 mg/dl (0.2-1) Direct Bilirubin 0.1 mg/dl (0-0.2) Aspartate Amino Transf (AST/SGOT) 21 U/L (15-37) Alanine Aminotransferase (ALT/SGPT) 18 U/L (12-78) Alkaline Phosphatase 70 U/L (45-117) Total Creatine Kinase 36 U/L (26-192) Creatine Kinase MB 1.3 ng/ml (0.5-3.6) Creatine Kinase MB Ratio 3.6 (0-3.0) Troponin I < 0.015 ng/ml (0-0.045) Total Protein 7.3 gm/dl (6.4-8.2) Albumin 3.4 gm/dl (3.4-5.0) ECG Indication: chest pain Rate (beats per minute): 66 Rhythm: atrial flutter, other (Ventricularly paced rhythm) Findings: LBBB, left axis deviation Comparison ECG Date: December 03, 2016 Change: no significant change ED Course ED COURSE: Vital signs were reviewed and showed hypertensive. The patients medical record was reviewed The above diagnostic studies were performed and reviewed. ED treatments and interventions as stated above. 1159: The patient was evaluated in room C07. A complete history and physical examination was performed. Medication Reconciliation: I attest that I have personally reviewed the patient's current medication list. Blood pressure screening: Patient was found to have an elevated blood pressure and was referred to their primary doctor for recheck and further treatment. 1248: The patient did not initially want the x-ray. After the discussion, she is agreeable. 1335: Upon reevaluation, the patient is resting comfortably.I discussed my findings with the patient and she understands and agrees with the treatment plan. Based on the patients age, coexisting illnesses, exam and lab findings the decision to treat as an inpatient was made. The patient remained stable while under my care. The patient will be evaluated for further management. 1415: I discussed the patient's case with Dr. Lopez, from [facility]. Medical Decision Differential diagnoses includes but is not limited to acute coronary syndrome, myocardial infarction, pericarditis, pulmonary embolus, aortic dissection, pneumonia, pneumothorax, musculoskeletal, shingles, esophageal. Patient is an 86-year-old female who presents the ER for midsternal chest pain which travels to the back. Does admit to some shortness of breath but this is fairly unchanged from her baseline. She has a history of A. fib, hypertension, CHF, and unstable angina. EKG was ventricular paced chest x-ray was unremarkable, upper extremity pulses equal bilateral. INR is just slightly subtherapeutic at 1.8. Chest pain was relieved with nitroglycerin. She was given aspirin. Case was discussed with internal medicine for further workup. Consults Time Called: [id number] Consulting Physician: Dr. Lopez, from [facility] Returned Call: [phone] I discussed the patient's case with Dr. Lopez, from [facility]. Impression Primary Impression: Precordial chest pain Scribe Attestation The scribe's documentation has been prepared under my direction and personally reviewed by me in its entirety. I confirm that the note above accurately reflects all work, treatment, procedures, and medical decision making performed by me. Departure Information Dispostion Being Evaluated By Hospitalist [facility] (PCP)
[2016-12-08 13:51] VITALS: O2SAT 98; Ht 170.2 cm; Wt 86.5 kg
--- NOTE | 2016-12-08 13:51 | History and Physical ---
History & Physical Date & Time of Service: Dec 08, 2016 at 13:49 Chief Complaint: Chest Pain Primary Care Physician: Jax Ellis [place] History of Present Illness Source: patient [facility] [place] [facility] [place] [facility] chest pain started around 10am. She denies any exertion prior to the onset of her symptoms. Patient states that it started in the middle of her back and radiated through her to the central chest. Described as a pressure of 6-7/10 in severity. No radiation to the neck or arm. Associated with SOB but no pleurisy, nausea, or diaphoresis. She denies any recent trauma or falls, headache, change in vision, fevers, arm or jaw pain, changes in stool, UTI symptoms and denies similar symptoms previously. After pain onset, she had lied down, but her discomfort did not cease. Nursing staff was called and patient was given nitroglycerin, which did help to resolve pain. Patient complains of SOB, that has been longstanding at both rest, and with exertion. She denies CP on exertion. She does use O2 via NC at night - but unsure of volume. She currently denies any pain. She does have SOB while adjusting her position in bed, but declines supplemental oxygen History significant for - SC 5-6 years ago, s/p stent insertion x 5 - Ablation with pacemaker insertion ~6months ago. 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 Past Medical/Surgical History Medical Problems: (1) Atrial flutter Status: Chronic (2) Benign essential hypertension Status: Chronic (3) Unstable angina Status: Resolved Surgical Problems: (1) Stented coronary artery Status: Resolved Family History No significant family history Social History Smoking Status: Former Smoker (Ex social smoker) Smokeless Tobacco Use: No Alcohol Use: socially Drug Use: none Marital Status: Housing status: lives with significant other ([facility]) Occupational Status: retired Multi-Drug Resistant Organisms History of MDRO: No Allergies Coded Allergies: Morphine (Verified Allergy, Unknown, MAKES HER SICK, 12/08/16) Tetracycline (Verified Allergy, Unknown, ., 12/08/16) Home Medications Scheduled Aspirin (Aspirin Ec), 81 MG PO DAILY B-Complex Vitamins (Vitamin B Complex), 1 TAB PO DAILY Coenzyme Q10 (Ubidecarenone) (Co Q10), 1 CAP PO DAILY Furosemide (Lasix), 40 MG PO DAILY Glucosamine Sulfate (Glucosamine), 500 MG PO DAILY Nitroglycerin (Nitrostat), 0.4 MG UT PRN Pantoprazole (Protonix), 40 MG PO DAILY Potassium Chloride (Micro-K Ext Rel), 10 MEQ PO DAILY Ramipril (Ramipril), 5 MG PO BID Warfarin Sod (Jantoven), 6 MG PO QPM Review of Systems Constitutional: + weight loss (7lb in last week by increasing ), No fever, No chills, No sweats ENT: No sore throat, No trouble swallowing Respiratory: + cough, + shortness of breath, + dyspnea on exertion, No sputum Cardiovascular: + PND, + edema, + palpitations, No chest pain, No orthopnea, No claudication Abdomen: No pain, No nausea, No vomiting, No diarrhea, No constipation, No GI bleeding Musculoskeletal: + swelling, No joint pain, No muscle pain Genitourinary - Female: + urinary frequency (with lasix in post tablet intake) , + urinary urgency (with lasix), + urinary incontinence, + vaginal itching, No dysuria, No rash, No vaginal bleeding, No vaginal discharge Neurologic: + numbness/tingling (in hands and arms, intermittent), No weakness , No balance problems (uses a cane) Integumentary: No rash, No itch Allergic / Immunologic: + seasonal allergies Physical Exam Vital Signs Date Time Temp Pulse Resp B/P (MAP) Pulse Ox O2 Delivery O2 Flow Rate FiO2 12/08/16 13:06 62 22 135/76 98 Room Air 12/08/16 12:12 60 12/08/16 12:09 36.5 63 18 176/80 95 Room Air 12/08/16 12:09 95 Room Air 12/08/16 12:09 95 Room Air General Appearance: WD/WN, + mild distress (with exertion) Head: normocephalic, atraumatic ENT: hearing grossly normal Neck: supple, no adenopathy, no JVD Respiratory/Chest: lungs clear, normal breath sounds, no respiratory distress, no accessory muscle use, + pertinent finding (Poor inspiratory effort) Cardiovascular: regular rate, rhythm, no edema, normal peripheral pulses Abdomen/GI: normal bowel sounds, non tender, soft Back: normal inspection, no CVA tenderness Extremities/Musculoskelatal: no calf tenderness, no pedal edema Neurologic/Psych: alert, normal mood/affect, oriented x 3 Diagnostics Laboratory Results Results Past 24 Hours Test 12/08/16 12:17 Range/Units White Blood Count 6.95 4.8-10.8 K/uL Red Blood Count 4.73 4.2-5.4 M/uL Hemoglobin 13.7 12.0-16.0 g/dL Hematocrit 43.3 37-47 % Mean Corpuscular Volume 91.5 80-100 fL Mean Corpuscular Hemoglobin 29.0 25-34 pg Mean Corpuscular Hemoglobin Concent 31.6 32-36 g/dl Platelet Count 197 130-400 K/uL Mean Platelet Volume 10.4 7.4-10.4 fL Neutrophils (%) (Auto) 71.7 % Lymphocytes (%) (Auto) 18.0 % Monocytes (%) (Auto) 7.9 % Eosinophils (%) (Auto) 1.7 % Basophils (%) (Auto) 0.6 % Neutrophils # (Auto) 4.98 1.4-6.5 K/uL Lymphocytes # (Auto) 1.25 1.2-3.4 K/uL Monocytes # (Auto) 0.55 0.11-0.59 K/uL Eosinophils # (Auto) 0.12 0-0.5 K/uL Basophils # (Auto) 0.04 0-0.2 K/uL RDW Standard Deviation 52.7 36.4-46.3 fL RDW Coefficient of Variation 15.5 11.5-14.5 % Immature Granulocyte % (Auto) 0.1 % Immature Granulocyte # (Auto) 0.01 0.00-0.02 K/uL Prothrombin Time 19.5 9.0-12.0 SECONDS Prothromb Time International Ratio 1.8 0.9-1.1 Sodium Level 145 136-145 mmol/L Potassium Level 3.8 3.5-5.1 mmol/L Chloride Level 106 98-107 mmol/L Carbon Dioxide Level 34 21-32 mmol/L Anion Gap 5.0 3-11 mmol/L Blood Urea Nitrogen 23 7-18 mg/dl Creatinine 0.98 0.60-1.20 mg/dl Est Creatinine Clear Calc Drug Dose 47.2 ml/min Estimated GFR () 60.5 Estimated GFR (Non- 52.2 BUN/Creatinine Ratio 23.3 10-20 Random Glucose 87 70-99 mg/dl Calcium Level 8.8 8.5-10.1 mg/dl Total Creatine Kinase 36 26-192 U/L Creatine Kinase MB 1.3 0.5-3.6 ng/ml Creatine Kinase MB Ratio 3.6 0-3.0 Troponin I < 0.015 0-0.045 ng/ml Diagnostic Radiology CHEST ONE VIEW PORTABLE CLINICAL HISTORY: Chest pain. COMPARISON STUDY: Chest radiograph and chest CT December 03, 2016. FINDINGS: A single lead left pacemaker is unchanged in position. Moderate cardiomegaly is noted without evidence of pulmonary edema. No pneumothorax or pleural effusion is identified. There is no consolidation to suggest pneumonia. IMPRESSION: No acute cardiopulmonary findings. No change in appearance of the chest. Impression Assessment and Plan 86-year-old female with pMHx SC s/p stent placement, atrial flutter, CHF, and unstable angina, HTN presented with chest pain and SOB on exertion (similar to baseline) Chest pain on backgd of previous SC s/p stent placement - Admit to telemetry - Trop x3 q8h - Continue aspirin 81mg - Nitroglycerin SL and nitro paste topical PRN chest pain Dyspnea - Ongoing symptom - worse with exertion - sats dropped when leaning over to prep meal, but patient declined O2 at that time - May be secondary to a.flutter, angina or CHF - Wears O2 overnight via NC -unsure of amount - PT/OT eval. May need 2 step prior to discharge CHF - CXR on admission shows no evidence of CHF? - Echo: 06/02/2015: Rhythm is atrial fibrillation. Ejection Fraction = 50-55%. Mild concentric LV hypertrophy. Septal motion consistent with conduction abnormality. Aortic valve moderately calcified. Imaging and doppler are discordant. Mild to moderate aortic stenosis suspected. Mild aortic regurgitation. Mild to moderate mitral regurgitation. Left atrium moderately dilated. Mild tricuspid regurgitation. - Continue PO furosemide 40mg daily - Daily weights, I/O's, low salt diet - KCl supplementation 10mEq daily - Evidence of intravascular dehydration - check albumin, consider albumin bolus - Trend BMP, Mg+ A.flutter - ventricular pacing - Continue warfarin 6mg qHS - Trend INR (1.8 on admission) HTN - PO Furosemide 40mg daily, Ramipril 5mg BID GERD - PO Pantoprazole 40mg VTE PPx - On warfarin for afib - TEDs Dispo - Telemetry FULL CODE Level of Care Telemetry Advanced Directives Existing Advance Directive: Yes Existing Living Will: Yes Existing Power of Digital Specialist: Yes () Resuscitation Status FULL RESUSCITATION (As long as it is not futile) VTE Prophylaxis VTE Risk Assessment Done? Y/N: Yes Risk Level: Moderate Given or contraindicated: Warfarin (Coumadin) (For a.fib), [place] Resident Tracking Resident Involvement: Resident Care Provided Care Provided: [facility] Medicine Assessment and Plan Attending Addendum: I have physically seen and examined this patient, have directed their medical care, have supervised the medical residents activities, and agree with the H&P as noted above, with the following changes: NONE
[2016-12-08] MEDS ORDERED: ACETAMINOPHEN 325 MG TAB PO PRN (15:00)
[2016-12-08] MEDS ORDERED: POLYETHYLENE (MIRALAX) 17 GM PACK PO PRN (15:00)
[2016-12-08] MEDS ORDERED: NITROGLYCERIN 0.4 MG SL PER TAB CHARGE SL PRN (15:00)
[2016-12-08] MEDS ORDERED: ONDANSETRON INJ 2 MG/ML 2 ML VIAL IV PRN (15:00)
[2016-12-08] MEDS ORDERED: MAGNESIUM HYDROXIDE SUSP 30 ML UDC PO PRN (15:00)
[2016-12-08 16:06] VITALS: BP 177/92; PULSE 60; TEMP 36.4; O2SAT 96
[2016-12-08] MEDS: ALUMINUM/MAGNESIUM/SIMETH (MAALOX MAX) 30 ML UDC PO PRN (16:15)
[2016-12-08] MEDS ORDERED: IV FLUIDS COMPLETED PRN (16:45)
[2016-12-08] MEDS: WARFARIN SOD 6 MG TAB PO SCH (16:50)
[2016-12-08 17:58] VITALS: BP 181/81
[2016-12-08] MEDS: NITROGLYCERIN OINT 2% 1GM PACKET EXT SCH ×2 (17:59→23:37)
[2016-12-08 18:33] VITALS: BP 179/97
[2016-12-08] MEDS ORDERED: NURSING VERBAL MED ORDER ONE (18:45)
[2016-12-08] MEDS ORDERED: HydrALAZINE HCL 20 MG/ML VIAL ONE (18:46)
[2016-12-08] MEDS ORDERED: HydrALAZINE HCL 20 MG/ML VIAL IV. PRN (19:30)
[2016-12-08 19:34] VITALS: BP 163/88; PULSE 60; TEMP 36.5; O2SAT 97
[2016-12-08] MEDS ORDERED: hydrOXYzine HCL 10 MG TAB PO PRN (19:45)
[2016-12-08] MEDS: ENALAPRIL MALEATE 10 MG TAB PO SCH (20:23)
[2016-12-08 23:45] VITALS: BP 167/87; PULSE 79; TEMP 36.6; O2SAT 91
[2016-12-09] VITALS (10 sets, daily range): BP systolic 118–152; BP diastolic 70–87; PULSE 53–76; TEMP 36.4–36.9; O2SAT 91–97
[2016-12-09] MEDS: NITROGLYCERIN OINT 2% 1GM PACKET EXT SCH ×4 (06:06→23:55)
[2016-12-09 06:35] LABS: INR 1.9 (0.9-1.1); PROTHROMBIN TIME (PATIENT) 20.4 SECONDS (9.0-12.0)
[2016-12-09 07:04] LABS: BUN/CREATININE RATIO 24.4 (10-20); CALCIUM 8.2 mg/dl (8.5-10.1); CREATININE 0.84 mg/dl (0.60-1.20); MAGNESIUM 2.4 mg/dl (1.8-2.4)
[2016-12-09] MEDS: PANTOprazole SOD 40 MG TAB PO SCH (08:23)
[2016-12-09] MEDS: POTASSIUM CHLORIDE 10 MEQ TABCR PO SCH (08:24)
[2016-12-09] MEDS: ENALAPRIL MALEATE 10 MG TAB PO SCH ×2 (08:24→20:49)
[2016-12-09] MEDS: GLUCOSAMINE SULFATE 500 MG CAP PO SCH (08:24)
[2016-12-09] MEDS: FUROSEMIDE 40 MG TAB PO SCH (08:25)
[2016-12-09] MEDS: ASPIRIN 81 MG ECTAB PO SCH (08:25)
[2016-12-09] MEDS: WARFARIN SOD 6 MG TAB PO SCH (15:31)
--- NOTE | 2016-12-09 15:51 | Hospitalist Progress Note ---
Hospitalist Progress Note Date of Service Dec 09, 2016. Subjective Pt evaluation today including: conversation w/ patient, physical exam, chart review, lab review, review of studies, review of inpatient medication list Voiding: no voiding problems, no incontinence Patient states she is feeling well. CP has completely resolved- resolved prior to arrival yesterday- no acute events since. Denies associated symptoms. Per patient, asymptomatic w/ past OR. She is eating and drinking OK. Patient denies any fever, chills, sweats, lightheadedness, dizziness, vision changes, CP, palpitations, edema, SOB, wheezing, cough, abdominal pain, nausea, vomiting, diarrhea, urinary symptoms, melena, numbness/tingling, weakness, muscle/joint pain, anxiety/depression, active bleeding, or new skin discoloration/changes. Medications Current Inpatient Medications Medications (Trade) Dose Ordered Sig/Eron Route Start Time Stop Time Status Last Admin Dose Admin Acetaminophen (Tylenol Tab) 650 mg Q4H PRN PO 12/08/16 15:00 01/07/17 14:59 Al Hydrox/Mg Hydrox/Simethicone (Maalox Max Susp) 15 ml Q4H PRN PO 12/08/16 15:00 01/07/17 14:59 12/08/16 16:15 15 ML Magnesium Hydroxide (Milk Of Magnesia Susp) 30 ml Q12H PRN PO 12/08/16 15:00 01/07/17 14:59 Ondansetron HCl (Zofran Inj) 4 mg Q6H PRN IV 12/08/16 15:00 01/07/17 14:59 12/08/16 20:20 4 MG Nitroglycerin (Nitrostat Tab) 0.4 mg UD PRN SL 12/08/16 15:00 01/07/17 14:59 Nitroglycerin (Nitroglycerin 2% Oint) 1 inch Q6H EXT 12/08/16 18:00 01/07/17 17:59 12/09/16 11:59 1 INCH Polyethylene (Miralax Powder Packet) 17 gm DAILY PRN PO 12/08/16 15:00 01/07/17 14:59 Aspirin (Ecotrin Tab) 81 mg DAILY PO 12/09/16 09:00 01/08/17 08:59 12/09/16 08:25 81 MG Furosemide (Lasix Tab) 40 mg DAILY PO 12/09/16 09:00 01/08/17 08:59 12/09/16 08:25 40 MG Glucosamine Sulfate (Glucosamine Cap) 500 mg DAILY PO 12/09/16 09:00 01/08/17 08:59 12/09/16 08:24 500 MG Pantoprazole Sodium (Protonix Tab) 40 mg DAILY PO 12/09/16 09:00 01/08/17 08:59 Potassium Chloride (Klor-Con M10) 10 meq DAILY PO 12/09/16 09:00 01/08/17 08:59 12/09/16 08:24 10 MEQ Warfarin Sodium (Coumadin Tab) 6 mg DAILY@1600 PO 12/08/16 16:00 01/07/17 15:59 12/08/16 16:50 6 MG Enalapril Maleate (Vasotec Tab) 20 mg BID PO 12/08/16 21:00 01/07/17 20:59 12/09/16 08:24 20 MG Miscellaneous (Iv Fluids Completed) 1 ea PRN PRN N/A 12/08/16 16:45 12/08/17 16:44 Hydralazine HCl (HydrALAZINE INJ) 10 mg Q4H PRN IV. 12/08/16 19:30 01/07/17 19:29 Hydroxyzine HCl (Vistaril Tab) 10 mg ONE PRN PO 12/08/16 19:45 01/07/17 19:44 12/08/16 23:35 10 MG Objective Vital Signs Date Time Temp Pulse Resp B/P (MAP) Pulse Ox O2 Delivery O2 Flow Rate FiO2 12/09/16 12:00 Room Air 12/09/16 11:39 36.4 76 17 118/72 (87) 94 12/09/16 08:00 Room Air 12/09/16 07:57 36.6 59 18 152/87 (108) 97 149/78 (101) 12/09/16 04:00 36.5 66 20 141/79 (99) 96 Nasal Cannula 2.0 12/09/16 04:00 Room Air 2.0 Nasal Cannula 12/09/16 00:00 Room Air 2.0 Nasal Cannula 12/08/16 23:45 36.6 79 18 167/87 (113) 91 Nasal Cannula 2.0 12/08/16 20:00 Room Air 12/08/16 19:34 36.5 60 18 163/88 (113) 97 Room Air 12/08/16 18:33 179/97 (124) 12/08/16 17:58 181/81 (114) 12/08/16 16:06 36.4 60 20 177/92 (120) 96 Room Air 12/08/16 15:50 36.5 60 22 185/78 98 12/08/16 15:46 60 22 185/78 98 Room Air 12/08/16 15:14 61 22 185/78 98 Room Air Physical Exam General Appearance: no apparent distress Eyes: normal inspection, PERRL ENT: hearing grossly normal Neck: supple Respiratory/Chest: lungs clear, no respiratory distress, no accessory muscle use Cardiovascular: + systolic murmur, + irregularly irregular Abdomen: normal bowel sounds, non tender, soft Extremities: no pedal edema, no calf tenderness, + pertinent finding (chronic stasis dermatitis changes noted to bilateral lower extremities ) Neurologic/Psychiatric: alert, normal mood/affect, oriented x 3 Skin: normal color, warm/dry, no rash Laboratory Results Last 24 Hours Test 12/08/16 22:10 12/09/16 06:04 Troponin I 0.021 ng/ml 0.019 ng/ml Prothrombin Time 20.4 SECONDS Prothromb Time International Ratio 1.9 Sodium Level 146 mmol/L Potassium Level 4.0 mmol/L Chloride Level 109 mmol/L Carbon Dioxide Level 31 mmol/L Anion Gap 6.0 mmol/L Blood Urea Nitrogen 21 mg/dl Creatinine 0.84 mg/dl Est Creatinine Clear Calc Drug Dose 55.1 ml/min Estimated GFR () 72.9 Estimated GFR (Non- 62.9 BUN/Creatinine Ratio 24.4 Random Glucose 85 mg/dl Calcium Level 8.2 mg/dl Magnesium Level 2.4 mg/dl Assessment and Plan 86-year-old female, with PMHx OR s/p stent placement, atrial flutter, CHF, and unstable angina, HTN, presented with chest pain and SOB on exertion (similar to baseline). Chest pain- RESOLVED: - Admit to telemetry for cardiac monitoring - Trend cardiac enzymes- negative - EKG QAM and PRN for chest pain - Continue ASA 81 mg daily - Nitroglycerin SL and nitro paste topical PRN chest pain - Patient follows w/ Dr. Cabello- consult cardiology, appreciate recommendations Dyspnea, ?secondary to a.flutter, angina, or CHF: - Wears O2 overnight via NC - NOT requiring O2 supplementation - CXR- no acute process Chronic diastolic CHF: - CXR- no acute cardiopulmonary process - Lasix 40 mg daily, 10 mEq KCL supplement daily - Monitor daily weights and I&Os - ECHO- 06/02/2015: Rhythm is atrial fibrillation. Ejection Fraction = 50-55%. Mild concentric LV hypertrophy. Septal motion consistent with conduction abnormality. Aortic valve moderately calcified. Imaging and doppler are discordant. Mild to moderate aortic stenosis suspected. Mild aortic regurgitation. Mild to moderate mitral regurgitation. Left atrium moderately dilated. Mild tricuspid regurgitation. A.flutter- s/p ablation and pacemaker implantation: - Continue Warfarin 6 mg HS - INR subtherapeutic- follow PT/INR HTN: - Lasix 40 mg daily, Ramipril 5 mg BID - Hydralazine 10 mg IV PRN GERD: Pantoprazole 40 mg daily GI Prophylaxis: Protonix, Maalox PRN, IV Zofran PRN, Colace and/or Milk of Mag PRN DVT prophylaxis: Warfarin Code Status: LEVEL I, FULL Dispo: From home- lives w/ - hopeful discharge to home tomorrow - PT/OT recommendations- OK to return home
--- NOTE | 2016-12-09 17:49 | Cardiology Consultation ---
Cardiology Consultation Date of Consultation: Dec 09, 2016 History of Present Illness Emily King is a 86 year old female seen in cardiology consultation per the request of Priscilla Crawford PA-C for the evaluation of chest discomfort. The patient had recently been seen by Dr. Cabello of our practice on 11/26/16. At that time per the office notes she had described no chest discomfort. She had described fatigue and shortness of breath with exertion and an 8 pound weight gain. She notes shortness of breath a chronic basis with activity such as tried to climb the stairs at the [facility] where she resides. Yesterday morning she noted severe pain between her shoulder blades that radiated to her chest and persisted throughout the morning prompting her to seek emergency room care. Vital signs on arrival included a blood pressure of 176/80. She says he received a single dose of IV hydralazine 20 mg and her blood pressures had trended down. At the time of my interview and examine the patient she was in room 284-2. She was comfortable and when I arrived she was ordering a chicken salad sandwich on wheat bread and a caffeine free Coca-Cola for dinner. She was in line no acute distress. She stated that her chest discomfort had completely resolved. Topical nitroglycerin was noted on her right arm. Her EKG reveals chronic ventricular paced rhythm with the history of having had a previous AV node ablation and permanent pacemaker implantation and therefore her EKG is inconclusive regarding ischemia. Her troponin has been negative 3 thus far. History PAST MEDICAL HISTORY: 1. History of ischemic heart disease, she states that she has had a total of 5 intracoronary stents, per her outpatient records, she had stents to the LAD on 2 occasions the most recently of which was in 2009 when she lived in [place] 2. 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 3. Hypertension 4. 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 A total of 10 systems reviewed and were otherwise negative. Allergies Coded Allergies: Morphine (Verified Allergy, Unknown, MAKES HER SICK, 12/08/16) Tetracycline (Verified Allergy, Unknown, ., 12/08/16) Medications Reported Home Medications Medications Dose Route/Sig Max Daily Dose Days Date Category Dose Instructions Ramipril 5 Mg Cap 5 Mg PO BID 08/25/16 Reported Micro-K Ext Rel (Potassium Chloride) 10 Meq Capcr 10 Meq PO DAILY 05/21/16 Reported Jantoven (Warfarin Sodium) 6 Mg Tab 6 Mg PO QPM 11/26/15 Reported Lasix (Furosemide) 20 Mg Tab 40 Mg PO DAILY 10/28/15 Reported Co Q10 (Coenzyme Q10) 30 Mg Cap 1 Cap PO DAILY 08/09/15 Reported UNKNOWN DOSE Aspirin Ec (Aspirin) 81 Mg Tab 81 Mg PO DAILY 03/05/15 Reported Protonix (Pantoprazole) 40 Mg Tab 40 Mg PO DAILY 01/06/15 Reported Glucosamine (Glucosamine Sulfate) 500 Mg Cap 500 Mg PO DAILY 01/06/15 Reported Vitamin B Complex (B-Complex Vitamins) 1 Tab Tab 1 Tab PO DAILY 01/06/15 Reported Nitrostat (Nitroglycerin) 0.4 Mg Tab 0.4 Mg UT PRN 01/06/15 Reported Physical Exam Vital Signs (Last 8hrs): Last 8 Hrs Date Time Temp Pulse Resp B/P (MAP) Pulse Ox O2 Delivery O2 Flow Rate FiO2 12/09/16 16:00 94 Room Air 12/09/16 16:00 94 Room Air 12/09/16 15:45 36.8 64 18 134/75 (94) 93 Room Air 12/09/16 12:00 Room Air 12/09/16 11:39 36.4 76 17 118/72 (87) 94 General Appearance: Alert and Oriented x3. NAD. Head: Normocephalic Atraumatic. Eyes: PERRLA, EOMI, conjunctiva and sclera clear Neck: Supple. No carotid bruits noted. No JVD. No HJD. Respiratory: Breath sounds clear to auscultation bilaterally. No w/r/r. Cardiovascular: Reg rate and rhythm. S1 and S2 noted. No murmurs, rubs, gallops. PMI non displace. Abdomen: Normal bowel sounds, soft nontender. no abdominal bruits. Extremities: No significant lower extremity edema, varicose veins noted. Neuro: No focal deficits. Data Last Resulted 12/08/16 12:17 Red Blood Count 4.73, Mean Corpuscular Volume 91.5, Mean Corpuscular Hemoglobin 29.0, Mean Corpuscular Hemoglobin Concent 31.6, Mean Platelet Volume 10.4, Neutrophils (%) (Auto) 71.7, Lymphocytes (%) (Auto) 18.0, Monocytes (%) (Auto) 7.9, Eosinophils (%) (Auto) 1.7, Basophils (%) (Auto) 0.6, Neutrophils # (Auto) 4.98, Lymphocytes # (Auto) 1.25, Monocytes # (Auto) 0.55, Eosinophils # (Auto) 0.12, Basophils # (Auto) 0.04 Last Resulted 12/09/16 06:04 Past 24 Hours Test 12/08/16 22:10 12/09/16 06:04 Range/Units Troponin I 0.021 0.019 0-0.045 ng/ml Prothromb Time International Ratio 1.9 H 0.9-1.1 Prothrombin Time 20.4 H 9.0-12.0 SECONDS EKG as outlined in history of present illness. Chest x-ray with no acute cardiac pulmonary pathology. Assessment & Plan Impression: 86-year-old female 1. Chest discomfort, negative enzymes, inconclusive EKG due to chronic ventricular paced rhythm 2. Chronic atrial flutter for which patient has undergone AV junction ablation and permanent pacemaker implantation 3. History of CAD, prior LAD intervention 2009 4. Chronic exertional shortness of breath, perhaps due to chronic diastolic heart failure. Discussion/recommendations: The patient does not appear to be volume overloaded at the present time. She is on chronic diuretic therapy with furosemide 20 mg and alternate with 40 mg. Her blood pressure is above goal when she arrived to the emergency room but she describes having been in extreme distress. I'm not certain what prompted her discomfort, but it has resolved now. Cardiac enzymes are negative. I recommend proceeding with a resting echocardiogram to assess her resting wall motion reassess LVEF which has not been assessed since 2014. The patient is somewhat frail, I think that if an acute coronary syndrome is ruled out, I would likely recommend proceeding with conservative therapy rather than stress testing. I've requested a resting echocardiogram which will be performed tomorrow and further recommendations be forthcoming. Krishna Houston D.O.
[2016-12-09] MEDS: ALUMINUM/MAGNESIUM/SIMETH (MAALOX MAX) 30 ML UDC PO PRN (19:30)
[2016-12-10 04:21] VITALS: BP 150/77; PULSE 62; TEMP 36.9; O2SAT 98
[2016-12-10] MEDS: NITROGLYCERIN OINT 2% 1GM PACKET EXT SCH ×2 (06:00→11:42)
[2016-12-10 07:24] VITALS: BP 149/79; PULSE 60; TEMP 36.6; O2SAT 96
[2016-12-10 07:41] LABS: INR 1.9 (0.9-1.1); PROTHROMBIN TIME (PATIENT) 21.2 SECONDS (9.0-12.0)
[2016-12-10] MEDS: ENALAPRIL MALEATE 10 MG TAB PO SCH (08:15)
[2016-12-10] MEDS: PANTOprazole SOD 40 MG TAB PO SCH (08:15)
[2016-12-10] MEDS: FUROSEMIDE 40 MG TAB PO SCH (08:15)
[2016-12-10] MEDS: POTASSIUM CHLORIDE 10 MEQ TABCR PO SCH (08:15)
[2016-12-10] MEDS: GLUCOSAMINE SULFATE 500 MG CAP PO SCH (08:15)
[2016-12-10] MEDS: ASPIRIN 81 MG ECTAB PO SCH (08:15)
[2016-12-10] MEDS ORDERED: PERFLUTREN LIPID MICROSPHERE (DEFINITY) IV ONE (10:57)
--- NOTE | 2016-12-10 13:16 | ECHOCARDIOGRAM REPORT ---
*NOTICE TO RECEIVING DEMOCRAT AGENCY This information is strictly Confidential and protected under [place] law. [place] law prohibits you from making any further disclosure of this information unless further disclosure is expressly permitted by the written consent of the person to whom it pertains or is authorized by law. A general authorization for the release of medical or other information is not sufficient for this purpose. Hospital accepts no responsibility if the information is made available to any other person, INCLUDING THE PATIENT. Interpretation Summary * Name: JUAN PABLO JAMES Study Date: 12/10/2016 10:06 AM BP: 149/79 mmHg * Patient Location: [facility]\S\N284\S\2 HR: 60 * : 1930 (M/d/yyyy) Gender: Female Height: 67 in * Age: 86 yrs Ethnicity: [place] Weight: 190 lb * Ordering Physician: Krishna Houston * Referring Physician: Self, Referred * Performed By: Alejandra Philippe RDCS * * Reason For Study: CHEST PAIN * BSA: 2.0 m2 * -- Conclusions -- * The left ventricular wall motion is normal. * There is mild concentric left ventricular hypertrophy. * The LV Ejection Fraction = 55-60%. * The right ventricle is normal in size and function. * The aortic valve is moderately calcified. * Mild aortic regurgitation. * Moderate valvular aortic stenosis. * There is mild mitral regurgitation. * There is mild tricuspid regurgitation. * Doppler findings do not suggest pulmonary hypertension. Procedure Details * A contrast injection of Definity was performed to improve assessment of LV function. * Contrast was injected into an intravenous site in the right arm. * One vial of Definity ultrasound contrast was diluted in normal saline to a total volume of 10 ml. A total of '2' ml of solution was administered during imaging. * Lot # [id number] of Definity utilized for procedure. * Expiration date JAN 19. * A complete two-dimensional transthoracic echocardiogram was performed (2D, M-mode, Doppler and color flow Doppler). Left Ventricle * The left ventricle is normal in size. * There is mild concentric left ventricular hypertrophy. * Ejection Fraction = 55-60%. * Left ventricular systolic function is normal. * The left ventricular wall motion is normal. Right Ventricle * The right ventricle is normal in size and function. * The right ventricular systolic function is normal as assessed by tricuspid annular plane systolic excursion (TAPSE) (normal >1.5 cm). Atria * The left atrium is moderately dilated. * The right atrium is moderately dilated. * There is no evidence of atrial septal defect, but resolution does not allow assessment for a patent foramen ovale. Mitral Valve * There is severe mitral annular calcification. * There is no mitral valve stenosis. * There is mild mitral regurgitation. Tricuspid Valve * The tricuspid valve is normal. * There is no tricuspid stenosis. * There is mild tricuspid regurgitation. * Doppler findings do not suggest pulmonary hypertension. Aortic Valve * The aortic valve is trileaflet. * The aortic valve is moderately calcified. * Moderate valvular aortic stenosis. * Mild aortic regurgitation. Pulmonic Valve * The pulmonary valve is not well seen, but the Doppler examination is normal without significant regurgitation or stenosis. Great Vessels * The aortic root and proximal ascending aorta are normal sized. Pericardium/Pleural * There is no pericardial effusion. Right Ventricle * A pacemaker lead is noted in the right ventricle. Great Vessels * Normal inferior vena cava size and collapsability with sniff indicates a normal right atrial pressure of 3 mmHg MMode 2D Measurements and Calculations IVSd 1.2 cm IVSs 2.0 cm LVIDd 4.6 cm LVIDs 3.2 cm LVPWd 1.7 cm LVPWs 2.0 cm IVS/LVPW 0.72 FS 29.7 % EDV(Teich) 96.8 ml ESV(Teich) 41.8 ml EF(Teich) 56.8 % EDV(cubed) 96.6 ml ESV(cubed) 33.6 ml EF(cubed) 65.2 % % IVS thick 69.0 % % LVPW thick 19.6 % LV mass(C)d 262.5 grams LV mass(C)dI 132.7 grams/m\S\2 LV mass(C)s 286.1 grams LV mass(C)sI 144.6 grams/m\S\2 SV(Teich) 54.9 ml SI(Teich) 27.8 ml/m\S\2 SV(cubed) 63.0 ml SI(cubed) 31.8 ml/m\S\2 LA dimension 4.0 cm LVOT diam 2.0 cm LVOT area 3.3 cm\S\2 LVAd ap4 32.9 cm\S\2 LVLd ap4 8.5 cm EDV(MOD-sp4) 105.1 ml EDV(sp4-el) 107.5 ml LVAs ap4 20.5 cm\S\2 LVLs ap4 7.6 cm ESV(MOD-sp4) 46.2 ml ESV(sp4-el) 47.0 ml EF(MOD-sp4) 56.0 % EF(sp4-el) 56.3 % LVAd ap2 28.2 cm\S\2 LVLd ap2 8.0 cm EDV(MOD-sp2) 83.5 ml EDV(sp2-el) 83.9 ml LVAs ap2 17.8 cm\S\2 LVLs ap2 7.5 cm ESV(MOD-sp2) 36.5 ml ESV(sp2-el) 35.9 ml EF(MOD-sp2) 56.3 % EF(sp2-el) 57.2 % LVLd %diff -6.23 % EDV(MOD-bp) 96.8 ml LVLs %diff -2.03 % ESV(MOD-bp) 41.5 ml EF(MOD-bp) 57.1 % SV(MOD-sp4) 58.8 ml SI(MOD-sp4) 29.7 ml/m\S\2 SV(MOD-sp2) 47.0 ml SI(MOD-sp2) 23.8 ml/m\S\2 SV(MOD-bp) 55.3 ml SI(MOD-bp) 27.9 ml/m\S\2 SV(sp4-el) 60.5 ml SI(sp4-el) 30.6 ml/m\S\2 SV(sp2-el) 48.0 ml SI(sp2-el) 24.2 ml/m\S\2 Doppler Measurements and Calculations MV E max jhonny 109.1 cm/sec MV A max jhonny 42.4 cm/sec MV E/A 2.6 MV dec time 0.14 sec Ao V2 max 206.3 cm/sec Ao max PG 17.0 mmHg Ao max PG (full) 14.0 mmHg Ao V2 mean 146.1 cm/sec Ao mean PG 9.4 mmHg Ao mean PG (full) 7.9 mmHg Ao V2 VTI 43.7 cm PRATEEK(I,A) 1.3 cm\S\2 PRATEEK(I,D) 1.3 cm\S\2 PRATEEK(V,A) 1.4 cm\S\2 PRATEEK(V,D) 1.4 cm\S\2 AI max jhonny 402.0 cm/sec AI max PG 64.6 mmHg AI dec slope 147.9 cm/sec\S\2 AI P1/2t 796.1 msec LV V1 max PG 3.1 mmHg LV V1 mean PG 1.6 mmHg LV V1 max 87.4 cm/sec LV V1 mean 59.1 cm/sec LV V1 VTI 17.1 cm SV(LVOT) 55.8 ml SI(LVOT) 28.2 ml/m\S\2 TR max jhonny 284.7 cm/sec
--- NOTE | 2016-12-10 13:51 | Cardiology Follow-Up ---
Subjective General Date of Service: Dec 10, 2016. Chief Complaint: follow-up chest pain Pt evaluation today including: conversation w/ patient, physical exam History of Present Illness The patient is a 86 year old female seen in follow-up. She is feeling well with no additional chest pain. She does not that she has a sensation of burning in her throat at times and she is concerned that she is to be on a medication for reflux disease that she is no longer on. She does not remember what she took in the past. Telemetry reveals stable ventricular paced rhythm. Echocardiogram reviewed independently reveals normal resting wall motion with findings of moderate calcific aortic valve stenosis. Compared to the prior echocardiogram from 2014, the aortic valve stenosis has progressed from mild to moderate to moderate aortic valve stenosis. Allergies Coded Allergies: Morphine (Verified Allergy, Unknown, MAKES HER SICK, 12/08/16) Tetracycline (Verified Allergy, Unknown, ., 12/08/16) Social History Smoking Status: Former Smoker (Ex social smoker) Hx Tobacco Use In Past Year?: No Hx Alcohol Use - Type And Amou: Yes ([facility] ) Hx Substance Use - Type And Am: No Problem List Medical Problems: (1) Anterior chest wall pain Status: Acute (2) CHF (congestive heart failure) Status: Acute (3) Hip pain, left Status: Acute (4) Hypoxia Status: Acute (5) Precordial chest pain Status: Acute Physical Exam Vital Signs Last Vital Signs Documentation Date Time Temp Pulse Resp B/P (MAP) Pulse Ox O2 Delivery O2 Flow Rate FiO2 12/10/16 12:30 Room Air 12/10/16 07:24 36.6 60 18 149/79 (102) 96 2.0 Physical Exam Lungs: Auscultation: no wheezing, no rales/crackles, no rhonchi Cardiovascular: Heart Auscultation: RRR, II/ GENO Extremities: no edema, varicosities Neurologic: Gait & Station: pertinent finding (no focal deficits) Assessment and Plan Assessment and Plan Impression: 86 year old female 1. Chest discomfort, resolved, negative cardiac enzymes, EKG is inconclusive due to chronically ventricular paced rhythm, echocardiogram with normal wall motion 2. Moderate aortic valve stenosis 3. History of diastolic dysfunction, well compensated Plan: Would continue to treat her chest discomfort conservatively. No further cardiac testing at this time. She is not volume overloaded, would continue her prior to hospital home furosemide dose. She complains of chronic exertional shortness of breath which is unchanged. No intervention necessary for moderate aortic valve stenosis at this time. Although she asked about treatment for GERD, is noted that she is on Protonix on a chronic basis. She is receiving this in the hospital and will continue treatment. Patient is stable for discharge from my standpoint. Laboratory Results Last 24 Hours Test 12/10/16 07:01 Prothrombin Time 21.2 SECONDS Prothromb Time International Ratio 1.9
--- NOTE | 2016-12-10 14:04 | Discharge Summary ---
Discharge Summary Date of Service Dec 10, 2016. Discharge Summary Admission Date: Dec 08, 2016 at 14:59 Discharge Date: Dec 10, 2016 Discharge Disposition: Home Principal Diagnosis: Chest pain Problems/Secondary Diagnoses: Chest pain h/o CAD s/p NM w/ stent placement Chronic diastolic CHF A.flutter- s/p ablation and pacemaker implantation HTN GERD Procedures: CHEST ONE VIEW PORTABLE CLINICAL HISTORY: Chest pain. COMPARISON STUDY: Chest radiograph and chest CT December 03, 2016. FINDINGS: A single lead left pacemaker is unchanged in position. Moderate cardiomegaly is noted without evidence of pulmonary edema. No pneumothorax or pleural effusion is identified. There is no consolidation to suggest pneumonia. IMPRESSION: No acute cardiopulmonary findings. No change in appearance of the chest. Electronically signed by: Jair Hurtado M.D. 12/08/2016 1:24 PM Dictated Date/Time: 12/08/2016 1:22 PM The status of this report is Signed. Draft = Not yet reviewed or approved by Radiologist. Signed = Reviewed and approved by Radiologist ECHOCARDIOGRAM: Interpretation Summary * Name: JUAN PABLO JAMES Study Date: 12/10/2016 10:06 AM BP: 149/79 mmHg * Patient Location: [facility]\S\N284\S\2 HR: 60 * : 1930 (M/d/yyyy) Gender: Female Height: 67 in * Age: 86 yrs Ethnicity: MA Weight: 190 lb * Ordering Physician: Krishna Houston * Referring Physician: Self, Referred * Performed By: Alejandra Philippe RDCS * * Reason For Study: CHEST PAIN * BSA: 2.0 m2 * -- Conclusions -- * The left ventricular wall motion is normal. * There is mild concentric left ventricular hypertrophy. * The LV Ejection Fraction = 55-60%. * The right ventricle is normal in size and function. * The aortic valve is moderately calcified. * Mild aortic regurgitation. * Moderate valvular aortic stenosis. * There is mild mitral regurgitation. * There is mild tricuspid regurgitation. * Doppler findings do not suggest pulmonary hypertension. Procedure Details * A contrast injection of Definity was performed to improve assessment of LV function. * Contrast was injected into an intravenous site in the right arm. * One vial of Definity ultrasound contrast was diluted in normal saline to a total volume of 10 ml. A total of '2' ml of solution was administered during imaging. * Lot # [id number] of Definity utilized for procedure. * Expiration date JAN 19. * A complete two-dimensional transthoracic echocardiogram was performed (2D, M-mode, Doppler and color flow Doppler). Left Ventricle * The left ventricle is normal in size. * There is mild concentric left ventricular hypertrophy. * Ejection Fraction = 55-60%. * Left ventricular systolic function is normal. * The left ventricular wall motion is normal. Right Ventricle * The right ventricle is normal in size and function. * The right ventricular systolic function is normal as assessed by tricuspid annular plane systolic excursion (TAPSE) (normal >1.5 cm). Atria * The left atrium is moderately dilated. * The right atrium is moderately dilated. * There is no evidence of atrial septal defect, but resolution does not allow assessment for a patent foramen ovale. Mitral Valve * There is severe mitral annular calcification. * There is no mitral valve stenosis. * There is mild mitral regurgitation. Tricuspid Valve * The tricuspid valve is normal. * There is no tricuspid stenosis. * There is mild tricuspid regurgitation. * Doppler findings do not suggest pulmonary hypertension. Aortic Valve * The aortic valve is trileaflet. * The aortic valve is moderately calcified. * Moderate valvular aortic stenosis. * Mild aortic regurgitation. Pulmonic Valve * The pulmonary valve is not well seen, but the Doppler examination is normal without significant regurgitation or stenosis. Great Vessels * The aortic root and proximal ascending aorta are normal sized. Pericardium/Pleural * There is no pericardial effusion. Right Ventricle * A pacemaker lead is noted in the right ventricle. Great Vessels * Normal inferior vena cava size and collapsability with sniff indicates a normal right atrial pressure of 3 mmHg MMode 2D Measurements and Calculations IVSd 1.2 cm IVSs 2.0 cm LVIDd 4.6 cm LVIDs 3.2 cm LVPWd 1.7 cm LVPWs 2.0 cm IVS/LVPW 0.72 FS 29.7 % EDV(Teich) 96.8 ml ESV(Teich) 41.8 ml EF(Teich) 56.8 % EDV(cubed) 96.6 ml ESV(cubed) 33.6 ml EF(cubed) 65.2 % % IVS thick 69.0 % % LVPW thick 19.6 % LV mass(C)d 262.5 grams LV mass(C)dI 132.7 grams/m\S\2 LV mass(C)s 286.1 grams LV mass(C)sI 144.6 grams/m\S\2 SV(Teich) 54.9 ml SI(Teich) 27.8 ml/m\S\2 SV(cubed) 63.0 ml SI(cubed) 31.8 ml/m\S\2 LA dimension 4.0 cm LVOT diam 2.0 cm LVOT area 3.3 cm\S\2 LVAd ap4 32.9 cm\S\2 LVLd ap4 8.5 cm EDV(MOD-sp4) 105.1 ml EDV(sp4-el) 107.5 ml LVAs ap4 20.5 cm\S\2 LVLs ap4 7.6 cm ESV(MOD-sp4) 46.2 ml ESV(sp4-el) 47.0 ml EF(MOD-sp4) 56.0 % EF(sp4-el) 56.3 % LVAd ap2 28.2 cm\S\2 LVLd ap2 8.0 cm EDV(MOD-sp2) 83.5 ml EDV(sp2-el) 83.9 ml LVAs ap2 17.8 cm\S\2 LVLs ap2 7.5 cm ESV(MOD-sp2) 36.5 ml ESV(sp2-el) 35.9 ml EF(MOD-sp2) 56.3 % EF(sp2-el) 57.2 % LVLd %diff -6.23 % EDV(MOD-bp) 96.8 ml LVLs %diff -2.03 % ESV(MOD-bp) 41.5 ml EF(MOD-bp) 57.1 % SV(MOD-sp4) 58.8 ml SI(MOD-sp4) 29.7 ml/m\S\2 SV(MOD-sp2) 47.0 ml SI(MOD-sp2) 23.8 ml/m\S\2 SV(MOD-bp) 55.3 ml SI(MOD-bp) 27.9 ml/m\S\2 SV(sp4-el) 60.5 ml SI(sp4-el) 30.6 ml/m\S\2 SV(sp2-el) 48.0 ml SI(sp2-el) 24.2 ml/m\S\2 Doppler Measurements and Calculations MV E max jhonny 109.1 cm/sec MV A max jhonny 42.4 cm/sec MV E/A 2.6 MV dec time 0.14 sec Ao V2 max 206.3 cm/sec Ao max PG 17.0 mmHg Ao max PG (full) 14.0 mmHg Ao V2 mean 146.1 cm/sec Ao mean PG 9.4 mmHg Ao mean PG (full) 7.9 mmHg Ao V2 VTI 43.7 cm PRATEEK(I,A) 1.3 cm\S\2 PRATEEK(I,D) 1.3 cm\S\2 PRATEEK(V,A) 1.4 cm\S\2 PRATEEK(V,D) 1.4 cm\S\2 AI max jhonny 402.0 cm/sec AI max PG 64.6 mmHg AI dec slope 147.9 cm/sec\S\2 AI P1/2t 796.1 msec LV V1 max PG 3.1 mmHg LV V1 mean PG 1.6 mmHg LV V1 max 87.4 cm/sec LV V1 mean 59.1 cm/sec LV V1 VTI 17.1 cm SV(LVOT) 55.8 ml SI(LVOT) 28.2 ml/m\S\2 TR max jhonny 284.7 cm/sec Consultations: Cardiology Medication Reconciliation Continued Medications: Aspirin (Aspirin Ec) 81 Mg Tab 81 MG PO DAILY B-Complex Vitamins (Vitamin B Complex) 1 Tab Tab 1 TAB PO DAILY Coenzyme Q10 (Ubidecarenone) (Co Q10) 30 Mg Cap 1 CAP PO DAILY, CAP UNKNOWN DOSE Furosemide (Lasix) 20 Mg Tab 40 MG PO DAILY, TAB Glucosamine Sulfate (Glucosamine) 500 Mg Cap 500 MG PO DAILY Nitroglycerin (Nitrostat) 0.4 Mg Tab 0.4 MG UT PRN, BTL Pantoprazole (Protonix) 40 Mg Tab 40 MG PO DAILY, #30 TAB Potassium Chloride (Micro-K Ext Rel) 10 Meq Capcr 10 MEQ PO DAILY, CAP Ramipril (Ramipril) 5 Mg Cap 5 MG PO BID, #180 Warfarin Sod (Jantoven) 6 Mg Tab 6 MG PO QPM, TAB Referrals At Discharge Follow up Referrals: Family Practice Referral - Within 1 Week with [facility] Discharge Exam Review of Systems: Constitutional: No fever, No chills, No sweats, No weakness, No fatigue Respiratory: No cough, No shortness of breath, No hemoptysis Cardiovascular: No chest pain, No edema, No palpitations Abdomen: No pain, No nausea, No vomiting, No diarrhea, No constipation Musculoskeletal: No joint pain, No muscle pain, No swelling, No calf pain Genitourinary - Female: No dysuria, No hematuria Psychiatric: No depression symptoms, No anxiety Hematologic / Lymphatic: No abnormal bleeding/bruising Integumentary: No rash, No itch, No new/changing skin lesions Physical Exam: General Appearance: no apparent distress Eyes: normal inspection, PERRL ENT: hearing grossly normal Neck: supple Respiratory/Chest: lungs clear, no respiratory distress, no accessory muscle use Cardiovascular: regular rate, rhythm, + systolic murmur Abdomen / GI: normal bowel sounds, non tender, soft Extremities: no calf tenderness, no pedal edema, + pertinent finding ( chronic stasis dermatitis noted to bilateral lower extremities ) Neurologic/Psychiatric: alert, normal mood/affect, oriented x 3 Skin: normal color, warm/dry, no rash Hospital Course HPI on admission: [facility] when [facility] started around 10am. She denies any exertion prior to the onset of her symptoms. Patient states that it started in the middle of her back and radiated through her to the central chest. Described as a pressure of 6-7/10 in severity. No radiation to the neck or arm. Associated with SOB but no pleurisy, nausea, or diaphoresis. She denies any recent trauma or falls, headache, change in vision, fevers, arm or jaw pain, changes in stool, UTI symptoms and denies similar symptoms previously. After pain onset, she had lied down, but her discomfort did not cease. Nursing staff was called and patient was given nitroglycerin, which did help to resolve pain. Patient complains of SOB, that has been longstanding at both rest, and with exertion. She denies CP on exertion. She does use O2 via NC at night - but unsure of volume. She currently denies any pain. She does have SOB while adjusting her position in bed, but declines supplemental oxygen History significant for - NM 5-6 years ago, s/p stent insertion x 5 - Ablation with pacemaker insertion ~6months ago. Chest pain- RESOLVED/CAD s/p NM w/ stent placement: - Admit to telemetry for cardiac monitoring- no acute events - Trend cardiac enzymes- negative - ECHO obtained - EKG QAM and PRN for chest pain - Continue ASA 81 mg daily - Nitroglycerin SL and nitro paste topical PRN chest pain - Patient follows w/ Dr. Cabello- consult cardiology, appreciate recommendations -- Patient is stable from cardiology standpoint for discharge on 12/10 Dyspnea, ?secondary to a.flutter, angina, or CHF- RESOLVED: - Wears O2 overnight via NC - NOT requiring O2 supplementation - CXR- no acute process Chronic diastolic CHF: - CXR- no acute cardiopulmonary process - Lasix 40 mg daily, 10 mEq KCL supplement daily - Monitor daily weights and I&Os A.flutter- s/p ablation and pacemaker implantation: - Continue Warfarin 6 mg HS - INR subtherapeutic- follow PT/INR -- Script given for PT/INR on 12/11 w/ results forwarded to PCP HTN: - Lasix 40 mg daily, Ramipril 5 mg BID - Hydralazine 10 mg IV PRN GERD: Pantoprazole 40 mg daily GI Prophylaxis: Protonix, Maalox PRN, IV Zofran PRN, Colace and/or Milk of Mag PRN DVT prophylaxis: Warfarin Code Status: LEVEL I, FULL Dispo: Discharge to home ([facility]) - PT/OT recommendations- OK to return home Total Time Spent: Greater than 30 minutes This includes examination of the patient, discharge planning, medication reconciliation, and communication with other providers. Discharge Instructions Please refer to the electronic Patient Visit Report (Discharge Instructions) for additional information. Follow-Up Please follow-up with your PCP within 5-7 days Please follow-up with Cardiology as instructed by Dr. Houston Please follow-up/keep all of your subspecialty appointments Additional Copies To [facility]
--- NOTE | 2016-12-10 14:05 | Discharge Instructions ---
Discharge Instructions Date of Service Dec 10, 2016. Admission Reason for Admission: Chest Pain Discharge Discharge Diagnosis / Problem: Chest pain Discharge Goals Goal(s): Decrease discomfort, Diagnostic testing, Prevent Disease Progression Activity Recommendations Activity Limitations: resume your previous activity . Instructions / Follow-Up Instructions / Follow-Up Resume all regular home medications as prescribed Your INR was subtherapeutic (below goal range)- Please continue regular home dose of Coumadin (6 mg) tonight. You have been given a script to get your INR level check tomorrow- results will be forwarded to your PCP and they will further instruct you on your Coumadin dosage Please follow-up with your PCP within 5-7 days Please follow-up with Cardiology as instructed by Dr. Houston Please follow-up/keep all of your subspecialty appointments Home Care: * Take your medications exactly as directed. Don't skip doses. * Remember that recovery after a heart attack takes time. Plan to rest for at lease 4-8 weeks while you recover. Then return to normal activity when your doctor says it's okay. * Ask your doctor about joining a heart rehabilitation program. * Tell your doctor if you are feeling depressed. Feelings of sadness are common after a heart attack, but it is important that you speak to someone if you are feeling overwhelmed by these feelings. * If you are having chest pain, call 911 for an ambulance. Do NOT drive yourself to the hospital. * Ask your family members to learn CPR. * Learn to take your own blood pressure and pulse. Keep a record of your results. Ask your doctor when you should seek emergency medical attention. He or she will tell you which blood pressure reading is dangerous. Lifestyle Changes: * Maintain a healthy weight. Get help to lose any extra pounds. * Cut back on salt. * Limit canned, dried, packaged, and fast foods. * Don't add salt to your food. * Season foods with herbs instead of salt when you cook. * Break the smoking habit. Enroll in a stop-smoking program to improve your chances of success. * Limit fatty foods. * Check your lipid levels regularly. (Your doctor can show you how to do this.) * Build up your activity according to your doctor's recommendation. * Ask your doctor when it's okay to resume sexual activity. * Tell your doctor about any erectile dysfunction (ED) medication you are taking. Some ED medications are not safe if you take certain heart medications. * Try to manage stress. Follow Up: It is important for you to keep your follow up appointments with your medical provider. Current Hospital Diet Patient's current hospital diet: AHA Diet (Heart Healthy), Low Sodium Diet (2gm Na) Discharge Diet Recommended Diet: AHA Diet (Heart Healthy), Low Sodium Diet (2gm Na) Procedures Procedures Performed: Chest x-ray Echocardiogram Pending Studies Studies pending at discharge: no Laboratory Results Last Resulted CBC 12/08/16 12:17 Red Blood Count 4.73, Mean Corpuscular Volume 91.5, Mean Corpuscular Hemoglobin 29.0, Mean Corpuscular Hemoglobin Concent 31.6, Mean Platelet Volume 10.4, Neutrophils (%) (Auto) 71.7, Lymphocytes (%) (Auto) 18.0, Monocytes (%) (Auto) 7.9, Eosinophils (%) (Auto) 1.7, Basophils (%) (Auto) 0.6, Neutrophils # (Auto) 4.98, Lymphocytes # (Auto) 1.25, Monocytes # (Auto) 0.55, Eosinophils # (Auto) 0.12, Basophils # (Auto) 0.04 Last Resulted BMP 12/09/16 06:04 Last 24 Hours Test 12/10/16 07:01 Prothrombin Time 21.2 SECONDS Prothromb Time International Ratio 1.9 Medical Emergencies . Who to Call and When: Medical Emergencies: If at any time you feel your situation is an emergency, please call 911 immediately. Call 911 immediately or go to your nearest Emergency Room if you experience any of the following: Warning Signs and Symptoms of a Heart Attack * Chest pain that is not relieved by medication * Shortness of breath . Non-Emergent Contact Non-Emergency issues call your: Primary Care Provider . . "Provider Documentation" section prepared by Priscilla Crawford. . AMI Core Measures Reason no ASA as I/P: Treatment provided - N/A Reason no ASA at D/C: Treatment provided - N/A Reason no statin as I/P: Treatment not indicated Reason no statin at D/C: Treatment not indicated VTE Core Measure Inpt VTE Proph given/why not?: Warfarin (Coumadin) (For a.fib), T.E.D. Stockings
[2016-12-10 14:08] VITALS: BP 149/79; PULSE 60; TEMP 36.6; O2SAT 96
[2017-01-25] MEDS ORDERED: WARF6TAB5 PO (15:23)
[2017-01-25] MEDS ORDERED: TRAM-10 PO (15:32)
[2017-04-05] MEDS ORDERED: CEPH500C PO (13:23)
[2017-04-07] MEDS ORDERED: CIPR1TAB11 PO (13:42)
== END 2016-12-10 14:50 | disposition home or self-care (01) ==
LOC: EDBD 11:57 → C.EDC 11:58 → INTOOBSV 14:59 → C.MED 14:59 → ENRESERV 15:17
PROVIDERS: ADMIT Hospitalist; ATTEND Hospitalist
DX: R07.2 Precordial pain (principal); I48.0 Paroxysmal atrial fibrillation; I11.0 Hypertensive heart disease with heart failure; I50.32 Chronic diastolic (congestive) heart failure; I25.110 Atherosclerotic heart disease of native coronary artery with unstable angina pectoris; Z95.5 Presence of coronary angioplasty implant and graft; Z79.01 Long term (current) use of anticoagulants; Z79.82 Long term (current) use of aspirin; Z79.899 Other long term (current) drug therapy; K21.9 Gastro-esophageal reflux disease without esophagitis; Z95.0 Presence of cardiac pacemaker; I25.2 Old myocardial infarction; E78.5 Hyperlipidemia, unspecified

== ENCOUNTER 2016-12-13 19:35 | Observation (INO) | payer OTHER, BC ==
[~2016-12-13] VITALS: Ht 170.2 cm; Wt 88.9 kg
[2016-12-13] MEDS ORDERED: OXYCODONE HCL IR 5 MG TAB (IMMEDIATE RELEASE) PO STA (20:06)
[2016-12-13] MEDS ORDERED: ALUMINUM/MAGNESIUM SUSP 30 ML UDC PO STA (20:15)
[2016-12-13] MEDS ORDERED: VTMD1000 PO (20:21)
[2016-12-13] MEDS ORDERED: MAGN400T6 PO (20:21)
[2016-12-13] MEDS ORDERED: MULT-723 PO (20:21)
[2016-12-13] MEDS ORDERED: MISC1CAP69 PO (20:21)
--- NOTE | 2016-12-13 20:40 | DIAGNOSTIC IMAGING REPORT ---
RIGHT KNEE 1 OR 2 VIEWS ROUTINE CLINICAL HISTORY: Right knee pain status post trauma COMPARISON: None. DISCUSSION: No acute fractures or dislocations are visualized. There is marked prepatellar soft tissue swelling. There is possible fluid within the prepatellar bursa. 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 IMPRESSION: 1. No acute fractures 2. Soft tissue edema with possible fluid within the prepatellar bursa Electronically signed by: Josh Stein M.D. 12/13/2016 8:39 PM Dictated Date/Time: 12/13/2016 8:38 PM
--- NOTE | 2016-12-13 20:41 | DIAGNOSTIC IMAGING REPORT ---
RIGHT FEMUR 2 VIEWS ROUTINE CLINICAL HISTORY: Right femur pain status post trauma COMPARISON: None. DISCUSSION: No acute fractures or dislocations are visualized. 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 There are vascular calcifications present. There is soft tissue swelling at the level the knee. IMPRESSION: No acute fractures or dislocations identified. Electronically signed by: Josh Stein M.D. 12/13/2016 8:40 PM Dictated Date/Time: 12/13/2016 8:39 PM
--- NOTE | 2016-12-13 21:19 | DIAGNOSTIC IMAGING REPORT ---
CHEST ONE VIEW PORTABLE CLINICAL HISTORY: Abdominal pain COMPARISON STUDY: 12/08/2016 FINDINGS: The heart remains enlarged. There is aortic tortuosity. 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 There is no failure. There is no focal pulmonary consolidation. There are no pleural effusions. There is no free intraperitoneal air.[ IMPRESSION: No active disease in the chest. Electronically signed by: Josh Stein M.D. 12/13/2016 9:17 PM Dictated Date/Time: 12/13/2016 9:17 PM
--- NOTE | 2016-12-13 21:29 | EMERGENCY ROOM VISIT NOTE ---
History Report prepared by Aure: Cristina Sam Under the Supervision of: Dr. Jaren Orona D.O. First contact with patient: 19:50 Chief Complaint: FALL Stated Complaint: FALL/LEG INJURY History of Present Illness The patient is a 86 year old female who presents to the Emergency Room with complaints of an episode of a fall occurring last night. The patient states that her dog "pulled me down." She landed in the grass on her right knee. She is now complaining of burning pain in her right knee. The knee is swollen and bruised. She has been able to ambulate on it today, but it has gotten harder throughout the day. The patient rates her current pain as an 8/10 in severity. She denies abdominal pain, back pain, and any other injury. She is on Coumadin. Source of History: patient Onset: last night Position: other (global) Symptom Intensity: 8/10 Quality: burning Timing: other (episode) Modifying Factors (Worsening): other (bearing weight) Associated Symptoms: No abdominal pain, No back pain Review of Systems See HPI for pertinent positives & negatives. A total of 10 systems reviewed and were otherwise negative. Past Medical & Surgical Medical Problems: (1) Atrial flutter (2) Atrial flutter, paroxysmal (3) Benign essential hypertension (4) CHF (congestive heart failure) (5) Gait abnormality (6) Unstable angina Surgical Problems: (1) Stented coronary artery Family History No significant family history Social History Smoking Status: Never Smoker Drug Use: none Marital Status: Housing Status: lives with significant other Occupation Status: retired Current/Historical Medications Scheduled Aspirin (Aspirin Ec), 81 MG PO DAILY B-Complex Vitamins (Vitamin B Complex), 1 TAB PO DAILY Cholecalciferol (Vitamin D3), 1,000 UNITS PO DAILY Coenzyme Q10 (Ubidecarenone) (Co Q10), 1 CAP PO DAILY Furosemide (Lasix), 20 MG PO DAILY Magnesium Oxide (Mag-Ox), 800 MG PO DAILY Misc Natural Products (Joint Health), 1 CAP PO DAILY Multiple Vitamin (Vitalee), 1 TAB PO DAILY Nitroglycerin (Nitrostat), 0.4 MG UT PRN Pantoprazole (Protonix), 40 MG PO DAILY Ramipril (Ramipril), 5 MG PO BID Warfarin Sod (Jantoven), 6 MG PO QPM Allergies Coded Allergies: Morphine (Verified Allergy, Unknown, MAKES HER SICK, 12/08/16) Tetracycline (Verified Allergy, Unknown, ., 12/08/16) Physical Exam Vital Signs Date Time Temp Pulse Resp B/P (MAP) Pulse Ox O2 Delivery O2 Flow Rate FiO2 12/13/16 23:36 61 18 169/80 95 Room Air 12/13/16 21:38 60 12/13/16 21:36 60 20 189/88 97 Room Air 12/13/16 19:51 60 16 176/77 97 Room Air 12/13/16 19:45 16 97 Room Air Physical Exam GENERAL: Patient is awake, alert, very anxious appearing and appears uncomfortable. EYES: The conjunctivae are clear. The pupils are round and reactive. EARS, NOSE, MOUTH AND THROAT: The nose is without any evidence of any deformity. Mucous membranes are moist tongue is midline NECK: The neck is nontender and supple. RESPIRATORY: Lungs diminished throughout. No wheezes, rhonchi, or rales. CARDIOVASCULAR: Regular rate and rhythm noted there no murmurs rubs or gallops normal S1 normal S2 GASTROINTESTINAL: The abdomen is soft. Bowel sounds are present in all quadrants. Abdomen is nontender BACK: No midline tenderness or or step-off noted range of motion in flexion extension as well as rotation no signs of muscle spasm noted MUSCULOSKELETAL/EXTREMITIES: There was symmetric swelling and ecchymosis over the right knee, significant tenderness of the right knee, ROM elicited significant pain. SKIN: Pedal edema bilaterally with chronic venous stasis changes noted. Pulses were diminished by symmetrical. There is no obvious evidence of any rash. There are no petechiae, pallor or cyanosis noted. NEUROLOGIC: Patient is awake alert and oriented x3 Medical Decision & Procedures ER Provider Diagnostic Interpretation: Radiology results as stated below per my review and radiologist interpretation: RIGHT KNEE 1 OR 2 VIEWS ROUTINE CLINICAL HISTORY: Right knee pain status post trauma COMPARISON: None. DISCUSSION: No acute fractures or dislocations are visualized. There is marked prepatellar soft tissue swelling. There is possible fluid within the prepatellar bursa. 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 IMPRESSION: 1. No acute fractures 2. Soft tissue edema with possible fluid within the prepatellar bursa Electronically signed by: Josh Stein M.D. 12/13/2016 8:39 PM Dictated Date/Time: 12/13/2016 8:38 PM RIGHT FEMUR 2 VIEWS ROUTINE CLINICAL HISTORY: Right femur pain status post trauma COMPARISON: None. DISCUSSION: No acute fractures or dislocations are visualized. 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 There are vascular calcifications present. There is soft tissue swelling at the level the knee. IMPRESSION: No acute fractures or dislocations identified. Electronically signed by: Josh Stein M.D. 12/13/2016 8:40 PM Dictated Date/Time: 12/13/2016 8:39 PM CHEST ONE VIEW PORTABLE CLINICAL HISTORY: Abdominal pain COMPARISON STUDY: 12/08/2016 FINDINGS: The heart remains enlarged. There is aortic tortuosity. 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 There is no failure. There is no focal pulmonary consolidation. There are no pleural effusions. There is no free intraperitoneal air.[ IMPRESSION: No active disease in the chest. Electronically signed by: Josh Stein M.D. 12/13/2016 9:17 PM Dictated Date/Time: 12/13/2016 9:17 PM Laboratory Results 12/13/16 21:25 Red Blood Count 4.42, Mean Corpuscular Volume 91.2, Mean Corpuscular Hemoglobin 29.2, Mean Corpuscular Hemoglobin Concent 32.0, Mean Platelet Volume 10.4, Neutrophils (%) (Auto) 73.0, Lymphocytes (%) (Auto) 16.3, Monocytes (%) (Auto) 8.8, Eosinophils (%) (Auto) 1.3, Basophils (%) (Auto) 0.4, Neutrophils # (Auto) 5.98, Lymphocytes # (Auto) 1.34, Monocytes # (Auto) 0.72, Eosinophils # (Auto) 0.11, Basophils # (Auto) 0.03 12/13/16 21:25 Test 12/13/16 21:25 White Blood Count 8.20 K/uL (4.8-10.8) Red Blood Count 4.42 M/uL (4.2-5.4) Hemoglobin 12.9 g/dL (12.0-16.0) Hematocrit 40.3 % (37-47) Mean Corpuscular Volume 91.2 fL (80-100) Mean Corpuscular Hemoglobin 29.2 pg (25-34) Mean Corpuscular Hemoglobin Concent 32.0 g/dl (32-36) Platelet Count 202 K/uL (130-400) Mean Platelet Volume 10.4 fL (7.4-10.4) Neutrophils (%) (Auto) 73.0 % Lymphocytes (%) (Auto) 16.3 % Monocytes (%) (Auto) 8.8 % Eosinophils (%) (Auto) 1.3 % Basophils (%) (Auto) 0.4 % Neutrophils # (Auto) 5.98 K/uL (1.4-6.5) Lymphocytes # (Auto) 1.34 K/uL (1.2-3.4) Monocytes # (Auto) 0.72 K/uL (0.11-0.59) Eosinophils # (Auto) 0.11 K/uL (0-0.5) Basophils # (Auto) 0.03 K/uL (0-0.2) RDW Standard Deviation 51.6 fL (36.4-46.3) RDW Coefficient of Variation 15.4 % (11.5-14.5) Immature Granulocyte % (Auto) 0.2 % Immature Granulocyte # (Auto) 0.02 K/uL (0.00-0.02) Prothrombin Time 18.9 SECONDS (9.0-12.0) Prothromb Time International Ratio 1.7 (0.9-1.1) Activated Partial Thromboplast Time 25.0 SECONDS (21.0-31.0) Partial Thromboplastin Ratio 1.0 Anion Gap 11.0 mmol/L (3-11) Est Creatinine Clear Calc Drug Dose 38.3 ml/min Estimated GFR () 47.4 Estimated GFR (Non- 40.9 BUN/Creatinine Ratio 20.1 (10-20) Calcium Level 9.2 mg/dl (8.5-10.1) Total Bilirubin 0.6 mg/dl (0.2-1) Direct Bilirubin 0.1 mg/dl (0-0.2) Aspartate Amino Transf (AST/SGOT) 22 U/L (15-37) Alanine Aminotransferase (ALT/SGPT) 20 U/L (12-78) Alkaline Phosphatase 73 U/L (45-117) Total Protein 7.1 gm/dl (6.4-8.2) Albumin 3.3 gm/dl (3.4-5.0) Lipase 86 U/L (73-393) Laboratory results per my review. Medications Administered Medications (Trade) Dose Ordered Sig/Eron Route Start Time Stop Time Status Last Admin Dose Admin Oxycodone HCl (Roxicodone Immediate Rel Tab) 5 mg NOW STAT PO 12/13/16 20:06 12/13/16 20:07 DC 12/13/16 20:13 5 MG Al Hydroxide/Mg Hydroxide (Maalox Susp) 30 ml NOW STAT PO 12/13/16 20:15 12/13/16 20:16 DC 12/13/16 20:35 30 ML ECG Indication: other Rate (beats per minute): 66 Rhythm: other (ventricular paced rhythm) Findings: other (no PVCs, no sitka beats noted) Comparison ECG Date: 12/08/2016 Change: no significant change ED Course 1950: The patient was evaluated in room B10. A complete history and physical examination were performed. 2006: Oxycodone HCl 5 mg PO 2015: Maalox Susp 30 ml PO 2138: I reassessed the patient at this time. She is still having pain that is worse with movement. 2140: Case management is going to speak with the patient about rehab options. 2231: I reassessed the patient at this time. I discussed the results and treatment plan with the patient. I answered all pertaining questions that she had. She expressed understanding and verbalized agreement. 2249: I spoke with Dr. Cordero. We discussed the patients results and treatment plan. The patient will be evaluated by the [facility] for further management. Medical Decision Differential diagnosis: Etiologies such as fracture, dislocation, neurovascular compromise, compartment syndrome, soft tissue injury, as well as others were entertained. Medication Reconciliation: I attest that I have personally reviewed the patient' s current medications list. The patient is an 86-year-old female who currently takes Coumadin for irregular heartbeat who presented to the emergency department after a fall. The patient suffered a fall the evening before. She had pain in her right lower extremity but was able to ambulate through the day. She continued to have swelling and pain upon arrival to our emergency department she was unable to bear weight and had very severe swelling over her right knee which I think could be more consistent with her Coumadin use. No bony injury was noted. The patient was treated with pain medication and felt significantly improved but still could not ambulate. She was evaluated by the case operator in the emergency department. At this time she does not wish to be evaluated for rehabilitation because she would like to go home but will not be able to go home at this time. For this reason I discussed her case with the on-call [facility] hospitalist. They've agreed to evaluate the patient in the emergency department for further management and disposition. Consults Time Called: [id number] Consulting Physician: Dr. Cordero Returned Call: [phone] Cordero. We discussed the patient's results and treatment plan. The patient will be evaluated by the [facility] for further management. Impression Primary Impression: Fall Additional Impressions: Traumatic hematoma of right knee Contusion of right knee Inability to ambulate due to right knee Scribe Attestation The scribe's documentation has been prepared under my direction and personally reviewed by me in its entirety. I confirm that the note above accurately reflects all work, treatment, procedures, and medical decision making performed by me. Departure Information Dispostion Being Evaluated By Hospitalist Referrals [facility] (PCP) Patient Instructions My [facility] Problem Qualifiers Primary Impression: Fall Encounter type: initial encounter Qualified Codes: W19.XXXA - Unspecified fall, initial encounter Additional Impressions: Traumatic hematoma of right knee Encounter type: initial encounter Qualified Codes: S80.01XA - Contusion of right knee, initial encounter Contusion of right knee Encounter type: initial encounter Qualified Codes: S80.01XA - Contusion of right knee, initial encounter
[2016-12-13 21:39] LABS: BASO % 0.4 %; BASO ABS # 0.03 K/uL (0-0.2); COMPLETE YES; EOS % 1.3 %; HEMATOCRIT 40.3 % (37-47); IG% 0.2 %; LYMPH % 16.3 %; LYMPH ABS # 1.34 K/uL (1.2-3.4); MEAN CELL VOLUME 91.2 fL (80-100); MEAN CORPUSCULAR HEMOGLOBIN 29.2 pg (25-34); MEAN PLATELET VOLUME 10.4 fL (7.4-10.4); MONO % 8.8 %; PLATELET COUNT 202 K/uL (130-400); RED BLOOD COUNT 4.42 M/uL (4.2-5.4)
[2016-12-13 21:48] LABS: INR 1.7 (0.9-1.1); PROTHROMBIN TIME (PATIENT) 18.9 SECONDS (9.0-12.0)
[2016-12-13 22:01] LABS: BUN/CREATININE RATIO 20.1 (10-20); CREATININE 1.2 mg/dl (0.60-1.20); POTASSIUM 3.9 mmol/L (3.5-5.1)
[2016-12-13 22:38] LABS: CALCIUM 9.2 mg/dl (8.5-10.1)
[2016-12-13] MEDS ORDERED: NITROGLYCERIN 0.4 MG SL PER TAB CHARGE UT SCH (23:30)
[2016-12-13] MEDS ORDERED: POLYETHYLENE (MIRALAX) 17 GM PACK PO PRN (23:45)
[2016-12-13] MEDS ORDERED: ONDANSETRON INJ 2 MG/ML 2 ML VIAL IV PRN (23:45)
[2016-12-13] MEDS ORDERED: IV FLUIDS COMPLETED PRN (23:45)
[2016-12-13] MEDS ORDERED: TRAMADOL HCL 50 MG TAB PO PRN (23:45)
[2016-12-13] MEDS ORDERED: MAGNESIUM HYDROXIDE SUSP 30 ML UDC PO PRN (23:45)
[2016-12-13] MEDS ORDERED: ALUMINUM/MAGNESIUM/SIMETH (MAALOX MAX) 30 ML UDC PO PRN (23:45)
--- NOTE | 2016-12-14 00:03 | History and Physical ---
History & Physical Date & Time of Service: Dec 13, 2016 at 23:41 Chief Complaint: Fall/Leg Injury Primary Care Physician: Jax Ellis History of Present Illness Source: patient 86 y/o F Hx Aflutter - ablation and pacer, CAD, HTN. Pt was enjoying an evening constitutional with her Cockapoo when she fell onto the pavement sustaining trauma to her R knee. She is on Coumadin and has a large hematoma as a result. She presented to the ER as she was having difficulty ambulating after the fact. Unfortunately she remains unable to bear weight on her knee at present. She denies any symptoms preceding her fall such as lightheadedness, palpitations or CP. Imaging was negative for fracture showing prepatellar fluid. 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 Smoking Status: Never Smoker Drug Use: none Marital Status: Housing status: lives with significant other Occupational Status: retired Multi-Drug Resistant Organisms History of MDRO: No Allergies Coded Allergies: Morphine (Verified Allergy, Unknown, MAKES HER SICK, 12/08/16) Tetracycline (Verified Allergy, Unknown, ., 12/08/16) Home Medications Scheduled Aspirin (Aspirin Ec), 81 MG PO DAILY B-Complex Vitamins (Vitamin B Complex), 1 TAB PO DAILY Cholecalciferol (Vitamin D3), 1,000 UNITS PO DAILY Coenzyme Q10 (Ubidecarenone) (Co Q10), 1 CAP PO DAILY Furosemide (Lasix), 20 MG PO DAILY Magnesium Oxide (Mag-Ox), 800 MG PO DAILY Misc Natural Products (Joint Health), 1 CAP PO DAILY Multiple Vitamin (Vitalee), 1 TAB PO DAILY Nitroglycerin (Nitrostat), 0.4 MG UT PRN Pantoprazole (Protonix), 40 MG PO DAILY Ramipril (Ramipril), 5 MG PO BID Warfarin Sod (Jantoven), 6 MG PO QPM Review of Systems Constitutional: No fever, No chills, No sweats Eyes: No worsening of vision, No eye pain ENT: No hearing loss, No nasal symptoms Respiratory: No cough, No sputum, No wheezing Cardiovascular: No chest pain, No orthopnea, No PND Abdomen: No pain, No nausea, No vomiting Musculoskeletal: + joint pain, + swelling (R knee), No muscle pain Genitourinary - Female: No dysuria, No hematuria Neurologic: No memory loss, No paralysis, No weakness Psychiatric: No depression symptoms Endocrine: No fatigue Hematologic / Lymphatic: No abnormal bleeding/bruising Integumentary: No rash Allergic / Immunologic: No environmental allergies Physical Exam Vital Signs Date Time Temp Pulse Resp B/P (MAP) Pulse Ox O2 Delivery O2 Flow Rate FiO2 12/13/16 23:36 61 18 169/80 95 Room Air 12/13/16 21:38 60 12/13/16 21:36 60 20 189/88 97 Room Air 12/13/16 19:51 60 16 176/77 97 Room Air 12/13/16 19:45 16 97 Room Air Diagnostics Laboratory Results Results Past 24 Hours Test 12/13/16 21:25 Range/Units White Blood Count 8.20 4.8-10.8 K/uL Red Blood Count 4.42 4.2-5.4 M/uL Hemoglobin 12.9 12.0-16.0 g/dL Hematocrit 40.3 37-47 % Mean Corpuscular Volume 91.2 80-100 fL Mean Corpuscular Hemoglobin 29.2 25-34 pg Mean Corpuscular Hemoglobin Concent 32.0 32-36 g/dl Platelet Count 202 130-400 K/uL Mean Platelet Volume 10.4 7.4-10.4 fL Neutrophils (%) (Auto) 73.0 % Lymphocytes (%) (Auto) 16.3 % Monocytes (%) (Auto) 8.8 % Eosinophils (%) (Auto) 1.3 % Basophils (%) (Auto) 0.4 % Neutrophils # (Auto) 5.98 1.4-6.5 K/uL Lymphocytes # (Auto) 1.34 1.2-3.4 K/uL Monocytes # (Auto) 0.72 0.11-0.59 K/uL Eosinophils # (Auto) 0.11 0-0.5 K/uL Basophils # (Auto) 0.03 0-0.2 K/uL RDW Standard Deviation 51.6 36.4-46.3 fL RDW Coefficient of Variation 15.4 11.5-14.5 % Immature Granulocyte % (Auto) 0.2 % Immature Granulocyte # (Auto) 0.02 0.00-0.02 K/uL Prothrombin Time 18.9 9.0-12.0 SECONDS Prothromb Time International Ratio 1.7 0.9-1.1 Activated Partial Thromboplast Time 25.0 21.0-31.0 SECONDS Partial Thromboplastin Ratio 1.0 Sodium Level 143 136-145 mmol/L Potassium Level 3.9 3.5-5.1 mmol/L Chloride Level 103 98-107 mmol/L Carbon Dioxide Level 29 21-32 mmol/L Anion Gap 11.0 3-11 mmol/L Blood Urea Nitrogen 24 7-18 mg/dl Creatinine 1.20 0.60-1.20 mg/dl Est Creatinine Clear Calc Drug Dose 38.3 ml/min Estimated GFR () 47.4 Estimated GFR (Non- 40.9 BUN/Creatinine Ratio 20.1 10-20 Random Glucose 141 70-99 mg/dl Calcium Level 9.2 8.5-10.1 mg/dl Total Bilirubin 0.6 0.2-1 mg/dl Direct Bilirubin 0.1 0-0.2 mg/dl Aspartate Amino Transf (AST/SGOT) 22 15-37 U/L Alanine Aminotransferase (ALT/SGPT) 20 12-78 U/L Alkaline Phosphatase 73 45-117 U/L Total Protein 7.1 6.4-8.2 gm/dl Albumin 3.3 3.4-5.0 gm/dl Lipase 86 73-393 U/L EKG Ventricular pacing at 66BPM Impression Assessment and Plan 86 y/o F Hx Aflutter - ablation and pacer, CAD, HTN. Pt was enjoying an evening constitutional with her Cockapoo when she fell onto the pavement sustaining trauma to her R knee. She is on Coumadin and has a large hematoma as a result. She presented to the ER as she was having difficulty ambulating after the fact. Unfortunately she remains unable to bear weight on her knee at present. She denies any symptoms preceding her fall such as lightheadedness, palpitations or CP. 1) Fall - hematoma and ambulatory failure - pt does not wish to attend rehab but is agreeable to do so if she remains unable to ambulate - we will obtain a PT/OT assessment AM. Analgesics provided. Neurovascular checks requested due to the size of her hematoma and her Coumadin use. We have held her Coumadin pending reassessment. 2) A-flutter - Paced rhythm - Coumadin held due to hematoma - INR is slightly subtherapeutic 3) HTN - cont Ramipril There is a DNR order on her chart but she did not confirm this so is full code at present Anticoagulation held due to hematoma Total time for this admit including review of labs , meds , imaging - discussion with pt and ER attending - 35 min Level of Care Med/Surg Resuscitation Status FULL RESUSCITATION VTE Prophylaxis VTE Risk Assessment Done? Y/N: Yes Risk Level: Moderate Given or contraindicated: Warfarin (Coumadin)
[2016-12-14 02:49] VITALS: BP 160/83; PULSE 60; TEMP 36.7; Ht 170.2 cm; Wt 88.9 kg
[2016-12-14 07:30] VITALS: BP 134/76; PULSE 60; TEMP 36.6; O2SAT 99
[2016-12-14] MEDS: PANTOprazole SOD 40 MG TAB PO SCH (07:47)
[2016-12-14] MEDS: ASPIRIN 81 MG ECTAB PO SCH (07:47)
[2016-12-14] MEDS: FUROSEMIDE 20 MG TAB PO SCH (07:49)
[2016-12-14] MEDS: ENALAPRIL MALEATE 10 MG TAB PO SCH ×2 (07:49→20:34)
[2016-12-14] MEDS: ACETAMINOPHEN 325 MG TAB PO PRN ×3 (09:09→22:36)
[2016-12-14] MEDS: MAGNESIUM OXIDE 400 MG TAB PO SCH (10:15)
[2016-12-14 10:52] VITALS: BP 116/66; PULSE 64; O2SAT 95
[2016-12-14 15:26] VITALS: BP 104/67; PULSE 60; TEMP 36.4; O2SAT 98
--- NOTE | 2016-12-14 17:07 | CONSULTATION REPORT ---
DATE OF CONSULTATION: 12/14/2016 REASON FOR CONSULT: Right knee hematoma. HISTORY OF PRESENT ILLNESS: Ms. King is a pleasant 86-year-old female who sustained a fall, landing on her right knee. The patient is normally independent ambulator. She resides at the [facility] with her . She denies any previous history of knee pain or problems. The patient was out walking her Cockapoo when she fell onto the pavement, sustaining a direct blow to her right knee. The patient is on Coumadin and has a large hematoma. The patient is having difficulty ambulating, was brought to the Emergency Room. She was unable to bear weight on admission, she did see physical therapy today. She was able to transfer with assistance and was able to ambulate about 8 feet with a walker. The patient's INR is currently 1.7. Her hemoglobin is stable at 12.9. PAST MEDICAL HISTORY: History of A flutter with ablation and pacemaker, heart disease and hypertension. PAST SURGICAL HISTORY: Cardiac angiography with a total of 5 stents. FAMILY HISTORY: Noncontributory. SOCIAL HISTORY: The patient lives at home with her and at the [facility] in a cottage. ALLERGIES: MORPHINE AND TETRACYCLINE. MEDICATIONS: Please see the chart, includes warfarin 6 mg daily. REVIEW OF SYSTEMS: See HPI. Ten other systems reviewed, all negative. PHYSICAL EXAMINATION: VITAL SIGNS: Height 67 inches, weight 195 pounds, BMI is 30. GENERAL: This is a well-developed, well-nourished female who is alert and oriented x3. Mood and affect are appropriate. HEENT: Normocephalic, atraumatic. Mucous membranes are moist and intact. NECK: Supple without lymphadenopathy. HEART: Regular rate and rhythm without murmurs, rubs or gallops. LUNGS: Clear to auscultation without wheezes or rhonchi. ABDOMEN: Soft and nontender. Bowel sounds are equal and active. EXTREMITIES: With attention to the right knee, the patient has moderate ecchymosis over the right knee, extending into the thigh and into the tibial region. She has moderate to severe swelling including some prepatellar fluid. Range of motion is limited due to swelling and pain. She is extremely guarded on physical exam. She has no distal edema. She does have 2 cm fracture blisters noted on the medial aspect of the knee. These are not currently draining. She is neurovascularly intact. Strength is limited due to pain. X-RAY EXAMINATION: AP and lateral views show mild osteoarthritis. She cannot see obvious soft tissue swelling to the right knee. LABORATORY RESULTS: INR 1.7. Hemoglobin 12.9. IMPRESSION: Right knee hemarthrosis. PLAN: At this time, patient is making some progress with physical therapy. I would recommend observation with continued therapy. If she is deemed safe to return home, she can return home with her and I would recommend ambulating with a walker. May consider compressive dressing to the knee to help with swelling. If knee appears stable after 24 hours and her INR and hemoglobin remain stable, the patient can likely be discharged either to home or to a rehab center. We will discuss the plan with Dr. Corrigan who is the rounding physician today and update the plan if needed. Thank you for this consultation.
--- NOTE | 2016-12-14 17:30 | Progress Note ---
Subjective Date of Service: Dec 14, 2016. Subjective Pt evaluation today including: conversation w/ patient, physical exam, lab review, conversation w/ network pricing consultant, review of inpatient medication list Pain: less right knee pain today PO Intake: adequate Voiding: no voiding problems patient ambulated with therapy, difficult time moving around, ambulated 8 feet with RW therapy recommending 24 hour care, wants to go home appreciate ortho note, recommend compression if needed, will check H/H tomorrow AM plan to d/c tomorrow Problem List Medical Problems: (1) Anterior chest wall pain Status: Acute (2) CHF (congestive heart failure) Status: Acute (3) Contusion of right knee Status: Acute (4) Fall Status: Acute (5) Hip pain, left Status: Acute (6) Hypoxia Status: Acute (7) Inability to ambulate due to right knee Status: Acute (8) Precordial chest pain Status: Acute (9) Traumatic hematoma of right knee Status: Acute Review of Systems Constitutional: + weakness Musculoskeletal: + joint pain, + swelling (right knee) All Other Systems: Reviewed and Negative Medications Current Inpatient Medications Medications (Trade) Dose Ordered Sig/Eron Route Start Time Stop Time Status Last Admin Dose Admin Aspirin (Ecotrin Tab) 81 mg DAILY PO 12/14/16 09:00 01/13/17 08:59 12/14/16 07:47 81 MG Furosemide (Lasix Tab) 20 mg DAILY PO 12/14/16 09:00 01/13/17 08:59 12/14/16 07:49 20 MG Magnesium Oxide (Mag-Ox Tab) 800 mg DAILY PO 12/14/16 09:00 01/13/17 08:59 12/14/16 10:15 800 MG Nitroglycerin (Nitrostat Tab) 0.4 mg PRN UT 12/13/16 23:30 01/12/17 23:29 Pantoprazole Sodium (Protonix Tab) 40 mg DAILY PO 12/14/16 09:00 01/13/17 08:59 12/14/16 07:47 40 MG Enalapril Maleate (Vasotec Tab) 20 mg BID PO 12/14/16 09:00 01/13/17 08:59 12/14/16 07:49 20 MG Acetaminophen (Tylenol Tab) 650 mg Q4H PRN PO 12/13/16 23:45 01/12/17 23:44 6/12/17 15:29 650 MG Al Hydrox/Mg Hydrox/Simethicone (Maalox Max Susp) 15 ml Q4H PRN PO 12/13/16 23:45 01/12/17 23:44 Magnesium Hydroxide (Milk Of Magnesia Susp) 30 ml Q6H PRN PO 12/13/16 23:45 01/12/17 23:44 Polyethylene (Miralax Powder Packet) 17 gm DAILY PRN PO 12/13/16 23:45 01/12/17 23:44 Ondansetron HCl (Zofran Inj) 4 mg Q6H PRN IV 12/13/16 23:45 01/12/17 23:44 Tramadol HCl (Ultram Tab) 50 mg Q4H PRN PO 12/13/16 23:45 01/12/17 23:44 12/14/16 07:52 50 MG Miscellaneous (Iv Fluids Completed) 1 ea PRN PRN N/A 12/13/16 23:45 12/13/17 23:44 Objective Vital Signs Date Time Temp Pulse Resp B/P (MAP) Pulse Ox O2 Delivery O2 Flow Rate FiO2 12/14/16 16:00 Room Air 12/14/16 15:26 36.4 60 18 104/67 (79) 98 Nasal Cannula 2.0 12/14/16 10:52 64 95 12/14/16 08:00 Room Air 12/14/16 07:30 36.6 60 16 134/76 (95) 99 Nasal Cannula 2.0 12/14/16 05:52 Room Air 12/14/16 02:49 36.7 60 20 160/83 Room Air 12/13/16 23:36 61 18 169/80 95 Room Air 12/13/16 21:38 60 12/13/16 21:36 60 20 189/88 97 Room Air 12/13/16 19:51 60 16 176/77 97 Room Air 12/13/16 19:45 16 97 Room Air Physical Exam General Appearance: WD/WN, no apparent distress Neck: supple, no adenopathy, no JVD, trachea midline Respiratory/Chest: chest non-tender, lungs clear, normal breath sounds, no respiratory distress, no accessory muscle use Cardiovascular: regular rate, rhythm, no edema, no gallop, no JVD, no murmur Abdomen: normal bowel sounds, non tender, soft, no organomegaly Extremities: no pedal edema, no calf tenderness, normal capillary refill, pelvis stable, + pertinent finding (significant right knee swelling and bruising , tender, limited flexion due to swelling, tender to palpation) Neurologic/Psychiatric: capture manager II-XII nml as tested, no motor/sensory deficits, alert, normal mood/affect, oriented x 3 Skin: normal color, warm/dry, no rash, + pertinent finding (bruising around right knee) Laboratory Results Last 24 Hours Test 12/13/16 21:25 White Blood Count 8.20 K/uL Red Blood Count 4.42 M/uL Hemoglobin 12.9 g/dL Hematocrit 40.3 % Mean Corpuscular Volume 91.2 fL Mean Corpuscular Hemoglobin 29.2 pg Mean Corpuscular Hemoglobin Concent 32.0 g/dl Platelet Count 202 K/uL Mean Platelet Volume 10.4 fL Neutrophils (%) (Auto) 73.0 % Lymphocytes (%) (Auto) 16.3 % Monocytes (%) (Auto) 8.8 % Eosinophils (%) (Auto) 1.3 % Basophils (%) (Auto) 0.4 % Neutrophils # (Auto) 5.98 K/uL Lymphocytes # (Auto) 1.34 K/uL Monocytes # (Auto) 0.72 K/uL Eosinophils # (Auto) 0.11 K/uL Basophils # (Auto) 0.03 K/uL RDW Standard Deviation 51.6 fL RDW Coefficient of Variation 15.4 % Immature Granulocyte % (Auto) 0.2 % Immature Granulocyte # (Auto) 0.02 K/uL Prothrombin Time 18.9 SECONDS Prothromb Time International Ratio 1.7 Activated Partial Thromboplast Time 25.0 SECONDS Partial Thromboplastin Ratio 1.0 Sodium Level 143 mmol/L Potassium Level 3.9 mmol/L Chloride Level 103 mmol/L Carbon Dioxide Level 29 mmol/L Anion Gap 11.0 mmol/L Blood Urea Nitrogen 24 mg/dl Creatinine 1.20 mg/dl Est Creatinine Clear Calc Drug Dose 38.3 ml/min Estimated GFR () 47.4 Estimated GFR (Non- 40.9 BUN/Creatinine Ratio 20.1 Random Glucose 141 mg/dl Calcium Level 9.2 mg/dl Total Bilirubin 0.6 mg/dl Direct Bilirubin 0.1 mg/dl Aspartate Amino Transf (AST/SGOT) 22 U/L Alanine Aminotransferase (ALT/SGPT) 20 U/L Alkaline Phosphatase 73 U/L Total Protein 7.1 gm/dl Albumin 3.3 gm/dl Lipase 86 U/L Assessment and Plan 86 y/o F Hx Aflutter - ablation and pacer, CAD, HTN. Pt was enjoying an evening constitutional with her Cockapoo when she fell onto the pavement sustaining trauma to her R knee. She is on Coumadin and has a large hematoma as a result. She presented to the ER as she was having difficulty ambulating after the fact. Unfortunately she remains unable to bear weight on her knee at present. She denies any symptoms preceding her fall such as lightheadedness, palpitations or CP. 1) Fall with right knee trauma, significant hematoma and ambulatory failure - pt does not wish to attend rehab but is agreeable to do so if she remains unable to ambulate therapy recommending 24 hour care but also states she can return home appreciate ortho consult, compression if needed, check H/H tomorrow and INR plan to d/c home tomorrow with home therapy, [facility] maybe she would be agreeable to the [facility], CM will discuss 2) A-flutter - Paced rhythm - Coumadin held due to hematoma - INR is slightly subtherapeutic at 1.7 on admission will hold Coumadin for several days due to hematoma 3) HTN - cont Ramipril
[2016-12-14 20:07] LABS: URINE APPEARANCE CLEAR (CLEAR); URINE BILIRUBIN NEG (NEG); URINE COLOR DK YELLOW; URINE NITRITE NEG (NEG); URINE SPECIFIC GRAVITY 1.023 (1.000-1.030); UROBILINOGEN NEG (NEG)
[2016-12-14 20:12] LABS: MANUAL MICROSCOPIC REQUIRED? NO; REVIEW REQ? NO
[2016-12-14 20:31] VITALS: BP 150/72; PULSE 63; O2SAT 96
[2016-12-14 23:41] VITALS: BP 134/72; PULSE 61; TEMP 36.8; O2SAT 100
[2016-12-15 07:11] VITALS: BP 157/76; PULSE 66; TEMP 37.1; O2SAT 96
[2016-12-15] MEDS: ENALAPRIL MALEATE 10 MG TAB PO SCH (08:15)
[2016-12-15] MEDS: MAGNESIUM OXIDE 400 MG TAB PO SCH (08:15)
[2016-12-15] MEDS: ASPIRIN 81 MG ECTAB PO SCH (08:15)
[2016-12-15] MEDS: PANTOprazole SOD 40 MG TAB PO SCH (08:15)
[2016-12-15] MEDS: FUROSEMIDE 20 MG TAB PO SCH (08:15)
[2016-12-15] MEDS ORDERED: ACET-1047 PO (09:28)
--- NOTE | 2016-12-15 09:41 | Discharge Instructions ---
Discharge Instructions Date of Service Dec 15, 2016. Admission Reason for Admission: Gait Abnormality,Traumatic Hematoma Of Rt Knee Discharge Discharge Diagnosis / Problem: Traumatic Hematoma of Right Knee and Gait Abnormality Discharge Goals Goal(s): Decrease discomfort, Improve function, Increase independence Activity Recommendations Activity Limitations: as noted below Exercise/Sports Limitations: gradually increase as tolerated . Instructions / Follow-Up Instructions / Follow-Up Mechanical Fall with Right Knee Hematoma and Gait Dysfunction: - Please USE A WALKER as you recover from your leg injury and take your time as you walk to reduce falls. You may even need to use a wheelchair at the [facility] if you need to walk long distances - Make sure you were well-supported and good fitting shoes and avoid shoes that slip-on as this can cause you to fall - Avoid cluttered floors and be careful with rugs as these things can cause you to fall - Would recommend allowing your family/friends to assist with your dog while you are recovering - DO NOT TAKE YOUR WARFARIN (COUMADIN) - THIS IS YOUR BLOOD THINNER -- YOU MAY RESUME THIS MEDICATION ON DECEMBER 22, 2016 AND HAVE YOUR COUMADIN LEVELS CHECKED - Would recommend elevating your leg when you are sitting down to help with circulation in your legs. - No surgery is needed at this time but will follow-up with your doctor for monitoring - For pain, would recommend using Tylenol as needed. Please following dosing instructions on the bottle. Follow-Up: - Recommend seeing your family doctor in 7-10 days - Recommend obtaining blood work to look at blood levels and will provide a prescription Current Hospital Diet Patient's current hospital diet: AHA Diet (Heart Healthy) Discharge Diet Recommended Diet: AHA Diet (Heart Healthy) Pending Studies Studies pending at discharge: no Medical Emergencies . Who to Call and When: Medical Emergencies: If at any time you feel your situation is an emergency, please call 911 immediately. . Non-Emergent Contact Non-Emergency issues call your: Primary Care Provider Call Non-Emergent contact if: you have a fever, your pain is concerning you, you have any medication questions . . "Provider Documentation" section prepared by Virginia Blandon. . VTE Core Measure Inpt VTE Proph given/why not?: Contraindicated (Due to hematoma)
[2016-12-15 09:58] VITALS: BP 157/76; PULSE 66; TEMP 37.1; O2SAT 96
[2016-12-15] MEDS: ACETAMINOPHEN 325 MG TAB PO PRN (11:55)
--- NOTE | 2016-12-15 15:25 | Discharge Summary ---
Discharge Summary Date of Service Dec 15, 2016. Discharge Summary Admission Date: Dec 13, 2016 at 23:36 Discharge Date: Dec 15, 2016 Discharge Disposition: Home Principal Diagnosis: Mechanical Fall with R Knee Traumatic Hematoma Problems/Secondary Diagnoses: 1. Atrial Flutter S/P Ablation and Pacemaker 2. CAD 3. HTN Procedures: 1. RIGHT KNEE 1 OR 2 VIEWS ROUTINE DISCUSSION: No acute fractures or dislocations are visualized. There is marked prepatellar soft tissue swelling. There is possible fluid within the prepatellar bursa. 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 IMPRESSION: 1. No acute fractures 2. Soft tissue edema with possible fluid within the prepatellar bursa 2. RIGHT FEMUR 2 VIEWS ROUTINE DISCUSSION: No acute fractures or dislocations are visualized. 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 There are vascular calcifications present. There is soft tissue swelling at the level the knee. IMPRESSION: No acute fractures or dislocations identified. Consultations: 1. Orthopedics 2. PT/OT Medication Reconciliation Continued Medications: Aspirin (Aspirin Ec) 81 Mg Tab 81 MG PO DAILY B-Complex Vitamins (Vitamin B Complex) 1 Tab Tab 1 TAB PO DAILY Cholecalciferol (Vitamin D3) 1,000 Inter.unit Tab 1000 UNITS PO DAILY Coenzyme Q10 (Ubidecarenone) (Co Q10) 30 Mg Cap 1 CAP PO DAILY, CAP UNKNOWN DOSE Furosemide (Lasix) 20 Mg Tab 20 MG PO DAILY Magnesium Oxide (Mag-Ox) 400 Mg Tab 800 MG PO DAILY Misc Natural Products (Joint Health) 1 Cap Cap 1 CAP PO DAILY Multiple Vitamin (Vitalee) 1 Tab Tab 1 TAB PO DAILY Nitroglycerin (Nitrostat) 0.4 Mg Tab 0.4 MG UT PRN, BTL Pantoprazole (Protonix) 40 Mg Tab 40 MG PO DAILY, #30 TAB Ramipril (Ramipril) 5 Mg Cap 5 MG PO BID, #180 Warfarin Sod (Jantoven) 6 Mg Tab 6 MG PO QPM, TAB STOP THIS MEDICATION AT THIS TIME AND RESUME ON DECEMBER 22, 2016 Discharge Exam Review of Systems: Constitutional: No fever, No chills Eyes: No worsening of vision ENT: No nasal symptoms, No sore throat, No trouble swallowing Respiratory: No cough, No shortness of breath Cardiovascular: No chest pain Abdomen: No pain, No nausea, No vomiting, No diarrhea, No constipation Musculoskeletal: + joint pain (R Knee mostly with ambulation), + swelling ( R knee) Genitourinary - Female: No dysuria Neurologic: No numbness/tingling Integumentary: + problem reported (ecchymosis of R knee), No rash Physical Exam: General Appearance: WD/WN, no apparent distress Eyes: sclerae normal ENT: pharynx normal Neck: supple, no JVD, trachea midline Respiratory/Chest: lungs clear, normal breath sounds, no respiratory distress, no accessory muscle use Cardiovascular: regular rate, rhythm, no gallop, no murmur, + pertinent finding (palpable pacemaker in L upper chest) Abdomen / GI: normal bowel sounds, non tender, soft Extremities: no pedal edema, + swelling (diffuse edema of R knee with increased edema of RLE compared to LLE; diffuse ecchymosis with intact blister of medial aspect of R knee; pulses 2+ and adequate cap refill) Neurologic/Psychiatric: alert, oriented x 3 Skin: normal color, warm/dry Hospital Course ADMISSION: 86 y/o F Hx Aflutter - ablation and pacer, CAD, HTN. Pt was enjoying an evening constitutional with her Cockapoo when she fell onto the pavement sustaining trauma to her R knee. She is on Coumadin and has a large hematoma as a result. She presented to the ER as she was having difficulty ambulating after the fact. Unfortunately she remains unable to bear weight on her knee at present. She denies any symptoms preceding her fall such as lightheadedness, palpitations or CP. Imaging was negative for fracture showing prepatellar fluid. HOSPITAL COURSE: Ms. King was admitted for a mechanical fall resulting in traumatic hematoma of R knee while on Coumadin therapy. Slowly improving but remains edematous. Pain is improving but exacerbates with weightbaring. Does have multiple walkers and ambulatory devices [place]. Recommendations given to utilize these during recovery. Imaging without evidence of acute fracture. Orthopedics consulted with recommendations or conservative treatment at this time. Can utilize compression dressings to help with edema. Hemoglobin currently at 10.1 and Rx provided for CBC to be obtained in 1-2 days for further monitoring. She was instructed to hold Coumadin until 6/ 20/17 and then can resume. She will be provided with PT services and assistance through the [facility]. Patient is optimal for D/C home at the [facility] with services provided. Total Time Spent: Greater than 30 minutes This includes examination of the patient, discharge planning, medication reconciliation, and communication with other providers. Discharge Instructions Please refer to the electronic Patient Visit Report (Discharge Instructions) for additional information. Additional Copies To [facility]
[2017-01-25] MEDS ORDERED: WARF6TAB5 PO (15:23)
[2017-01-25] MEDS ORDERED: TRAM-10 PO (15:32)
[2017-04-05] MEDS ORDERED: CEPH500C PO (13:23)
[2017-04-07] MEDS ORDERED: CIPR1TAB11 PO (13:42)
== END 2016-12-15 11:58 | disposition home health service (06) ==
LOC: EDBD 19:35 → C.EDB 19:36 → C.MS2W 23:36 → ENRESERV 23:50
PROVIDERS: ADMIT Internal Medicine; ATTEND Internal Medicine
DX: S80.01XA Contusion of right knee, initial encounter (principal); W19.XXXA Unspecified fall, initial encounter; Y93.K9 Activity, other involving animal care; I48.92 Unspecified atrial flutter; I25.10 Atherosclerotic heart disease of native coronary artery without angina pectoris; I10 Essential (primary) hypertension; Z79.01 Long term (current) use of anticoagulants; Z95.0 Presence of cardiac pacemaker; Z98.890 Other specified postprocedural states; Z79.82 Long term (current) use of aspirin

== ENCOUNTER → 2016-12-18 | Outpatient (CLI) | payer OTHER, BC ==
[~2016-12-18] MED LIST changes: +CEPH500C PO; +CHOL1000 PO; +CIPR1TAB11 PO; -GLUC-172 PO; +MAGN400T6 PO; +MISC1CAP69 PO; +MISCCAP46 PO; +MULT-723 PO; -POTA10CA28 PO; +TRAM-10 PO; +VTMD1000 PO
[2016-12-18 10:14] LABS: HEMATOCRIT 32.8 % (37-47); MEAN CELL VOLUME 92.1 fL (80-100); MEAN CORPUSCULAR HEMOGLOBIN 28.7 pg (25-34); MEAN CORPUSCULAR HGB CONC 31.1 g/dl (32-36); PLATELET COUNT 235 K/uL (130-400); RED BLOOD COUNT 3.56 M/uL (4.2-5.4); WHITE BLOOD COUNT 7.96 K/uL (4.8-10.8)
== END | disposition home or self-care (01) ==
LOC: C.LABVPSUW 09:31
PROVIDERS: ATTEND Physician Assistant
DX: T14.8 Other injury of unspecified body region (principal); X58.XXXA Exposure to other specified factors, initial encounter

== ENCOUNTER → 2016-12-24 | Outpatient (CLI) | payer OTHER, BC | LOC: C.LABVPSUA 09:55 | PROVIDERS: ATTEND Internal Medicine Critical Care Medicine | DX: I48.92 Unspecified atrial flutter (principal) ==

== ENCOUNTER → 2016-12-28 | Outpatient (CLI) | payer OTHER, BC ==
[2016-12-28 11:04] LABS: INR 1.2 (0.9-1.1); PROTHROMBIN TIME (PATIENT) 13.2 SECONDS (9.0-12.0)
== END | disposition home or self-care (01) ==
LOC: C.LABVPSUA 09:07
PROVIDERS: ATTEND Internal Medicine Critical Care Medicine
DX: I48.91 Unspecified atrial fibrillation (principal)

== ENCOUNTER → 2016-12-29 | Outpatient (CLI) | payer OTHER, BC ==
[~2016-12-29] MED LIST changes: -CEPH500C PO; -CHOL1000 PO; -CIPR1TAB11 PO; -MISCCAP46 PO; -TRAM-10 PO
[2016-12-29 10:58] LABS: BASO % 0.6 %; BASO ABS # 0.04 K/uL (0-0.2); COMPLETE YES; HEMATOCRIT 37.3 % (37-47); IG% 0.1 %; LYMPH % 17.8 %; LYMPH ABS # 1.29 K/uL (1.2-3.4); MEAN CORPUSCULAR HEMOGLOBIN 29.9 pg (25-34); MEAN CORPUSCULAR HGB CONC 32.2 g/dl (32-36); MEAN PLATELET VOLUME 10.3 fL (7.4-10.4); MONO % 8.6 %; NEUT % 69.9 %; PLATELET COUNT 307 K/uL (130-400); RED BLOOD COUNT 4.01 M/uL (4.2-5.4); WHITE BLOOD COUNT 7.24 K/uL (4.8-10.8)
[2016-12-29 11:09] LABS: BLOOD UREA NITROGEN 19 mg/dl (7-18); CARBON DIOXIDE 28 mmol/L (21-32); CHLORIDE 106 mmol/L (98-107); CREATININE 0.86 mg/dl (0.60-1.20); GLUCOSE 85 mg/dl (70-99); SODIUM 141 mmol/L (136-145)
[2016-12-29 12:29] LABS: CALCIUM 9.1 mg/dl (8.5-10.1)
== END | disposition home or self-care (01) ==
LOC: C.LABVPSUA 09:25
PROVIDERS: ATTEND Internal Medicine Critical Care Medicine
DX: I50.9 Heart failure, unspecified (principal); I25.10 Atherosclerotic heart disease of native coronary artery without angina pectoris

== ENCOUNTER → 2016-12-31 | Outpatient (CLI) | payer OTHER, BC ==
[~2016-12-31] MED LIST changes: +CEPH500C PO; +CIPR1TAB11 PO; +TRAM-10 PO
[2016-12-31 10:51] LABS: INR 1.5 (0.9-1.1); PROTHROMBIN TIME (PATIENT) 16.2 SECONDS (9.0-12.0)
== END ==
LOC: C.LABVPSUA 09:24
PROVIDERS: ATTEND Internal Medicine Critical Care Medicine
DX: I48.91 Unspecified atrial fibrillation (principal)

== ENCOUNTER → 2017-01-04 | Outpatient (CLI) | payer OTHER, BC ==
[2017-01-04 09:59] LABS: PROTHROMBIN TIME (PATIENT) 33.8 SECONDS (9.0-12.0)
== END | disposition home or self-care (01) ==
LOC: C.LABVPSUA 09:16
PROVIDERS: ATTEND Internal Medicine Critical Care Medicine
DX: I48.91 Unspecified atrial fibrillation (principal)

== ENCOUNTER → 2017-01-08 | Outpatient (CLI) | payer OTHER, BC ==
[2017-01-08 10:20] LABS: INR 2.7 (0.9-1.1); PROTHROMBIN TIME (PATIENT) 29.8 SECONDS (9.0-12.0)
== END | disposition home or self-care (01) ==
LOC: C.LABVPSUA 09:25
PROVIDERS: ATTEND Internal Medicine Critical Care Medicine
DX: I48.91 Unspecified atrial fibrillation (principal)

== ENCOUNTER → 2017-01-12 | Outpatient (CLI) | payer OTHER, BC ==
[2017-01-12 10:22] LABS: INR 2.8 (0.9-1.1); PROTHROMBIN TIME (PATIENT) 31.5 SECONDS (9.0-12.0)
== END | disposition home or self-care (01) ==
LOC: C.LABVPSUA 09:40
PROVIDERS: ATTEND Internal Medicine Critical Care Medicine
DX: I48.91 Unspecified atrial fibrillation (principal)

== ENCOUNTER 2017-01-22 08:10 | Inpatient (IN) | payer OTHER, BC ==
[~2017-01-22] VITALS: Ht 170.2 cm; Wt 86.7 kg
[~2017-01-22 08:10] MED LIST changes: +CEFAZOLIN 1000MG/55 ML D5W IV SCH; +CEFAZOLIN 2000 MG/60 ML D5W 60 ML IV SCH; -CEPH500C PO; -CIPR1TAB11 PO; +LACTATED RINGER'S 1000ML 1,000 ML IV SCH; +PATIENT'S HEIGHT AND/OR WEIGHT NEEDED SCH; -TRAM-10 PO
[2017-01-22 13:39] VITALS: BP 136/64; PULSE 61; TEMP 36.6; O2SAT 97; Ht 170.2 cm; Wt 86.7 kg
[2017-01-22 14:57] VITALS: BP 160/74; PULSE 59; TEMP 36.7; O2SAT 99
[2017-01-22] MEDS ORDERED: ONDANSETRON INJ 2 MG/ML 2 ML VIAL IV PRN (16:30)
[2017-01-22] MEDS ORDERED: POLYETHYLENE (MIRALAX) 17 GM PACK PO PRN (16:30)
[2017-01-22 16:50] LABS: HEMATOCRIT 36.9 % (37-47); MEAN CELL VOLUME 89.8 fL (80-100); MEAN CORPUSCULAR HEMOGLOBIN 28.7 pg (25-34); MEAN PLATELET VOLUME 10.6 fL (7.4-10.4); PLATELET COUNT 208 K/uL (130-400); RED BLOOD COUNT 4.11 M/uL (4.2-5.4); WHITE BLOOD COUNT 6.11 K/uL (4.8-10.8)
[2017-01-22 17:00] LABS: INR 2.3 (0.9-1.1); PARTIAL THROMBOPLASTIN RATIO 1.4; PROTHROMBIN TIME (PATIENT) 25.9 SECONDS (9.0-12.0)
--- NOTE | 2017-01-22 17:25 | History and Physical ---
History & Physical Date & Time of Service: Jan 22, 2017 at 17:03 Chief Complaint: Right Knee Prepatella Hematoma Primary Care Physician: Jax Ellis History of Present Illness This is an 86 yo F with PMHx of chronic decompensated diastolic heart failure secondary to elevated ventricular response rates with atrial tachycardia, atrial flutter, s/p AV node ablation and ventricular pacemaker insertion 2014, hx of [place], HTN, who presents today for an elective R knee hematoma evacuation scheduled with Dr. Guzman for tomorrow. She reports she fell about 1 month ago because her dog tripped her. She has been able to walk without much difficulty, but that the swelling in her knee has worsened more recently. She is slightly irritated that she called about surgery yesterday, and that nobody knew she was scheduled. She last took coumadin 2 nights ago, 01/20, because she figured she should hold this prior to surgery. She is also requesting a meal currently as she had nothing to eat since 2400 in anticipation of surgery today. Past Medical/Surgical History Medical Problems: (1) Atrial flutter Status: Chronic (2) Benign essential hypertension Status: Chronic (3) Unstable angina Status: Resolved Chronic decompensated diastolic heart failure secondary to elevated ventricular response rates with atrial tachycardia, atrial flutter, s/p AV node ablation and ventricular pacemaker insertion 2014, hx of [place] HTN Surgical Problems: (1) Stented coronary artery Status: Resolved Family History No significant family history Social History Smoking Status: Never Smoker Drug Use: none Marital Status: Housing status: lives with significant other Occupational Status: retired Multi-Drug Resistant Organisms History of MDRO: No Allergies Coded Allergies: Tetracycline (Verified Allergy, Unknown, ., 12/08/16) Morphine (Verified Adverse Reaction, Unknown, MAKES HER SICK, 01/21/17) Home Medications Scheduled Aspirin (Aspirin Ec), 81 MG PO DAILY B-Complex Vitamins (Vitamin B Complex), 1 TAB PO DAILY Coenzyme Q10 (Ubidecarenone) (Co Q10), 1 CAP PO DAILY Furosemide (Lasix), 20 MG PO DAILY Misc Natural Products (Joint Health), 1 CAP PO DAILY Multiple Vitamin (Vitalee), 1 TAB PO DAILY Nitroglycerin (Nitrostat), 0.4 MG UT PRN Pantoprazole (Protonix), 40 MG PO DAILY Ramipril (Ramipril), 5 MG PO BID Warfarin Sod (Jantoven), 6 MG PO QPM Review of Systems Constitutional: No fever, sweats or chills Eyes: No diplopia, no worsening or blurred vision ENT: normal hearing, no trouble swallowing Respiratory: No cough, sputum, dyspnea at rest or on exertion Cardiovascular: No chest pain, tightness or palpitations Abdomen: No pain, nausea, vomiting, diarrhea or constipation Musculoskeletal: No joint pain, calf pain, swelling Neurologic: No weakness, numbness/tingling, or balance problems, uses a cane for ambulation assistance when out of the house Psychiatric: No anxiety or depression Skin: No rash or itch Physical Exam Vital Signs Date Time Temp Pulse Resp B/P (MAP) Pulse Ox O2 Delivery O2 Flow Rate FiO2 01/22/17 15:40 Room Air 01/22/17 14:57 36.7 59 18 160/74 (102) 99 Room Air 01/22/17 13:39 36.6 61 18 136/64 97 Room Air General: awake, alert, no apparent distress Head: Normocephalic, atraumatic ENT: PERRL, EOMI, no pharyngeal exudate, mucous membranes moist Chest: Clear to auscultation, on room air, no adventitious breath sounds Cardiac: Regular rate and rhythm, + holosystolic murmur grade 3/6 , no JVD, normal peripheral pulses, good capillary refill Abdominal: NABS x 4 quadrants, soft, nontender to palpation, no rebound, guarding or tenderness Extremities: +R knee with dull ecchymosis, swelling, diminished active and passive ROM, slightly tender with palpation. Left= normal inspection, no peripheral edema or erythema, calfs nontender to palpation Psych: Normal mood and affect Neuro: AAO x 3, strength intact bilaterally and related 5/5, no motor deficits, speech is clear, no peripheral sensory deficits Diagnostics Laboratory Results Results Past 24 Hours Test 01/22/17 16:26 Range/Units White Blood Count 6.11 4.8-10.8 K/uL Red Blood Count 4.11 4.2-5.4 M/uL Hemoglobin 11.8 12.0-16.0 g/dL Hematocrit 36.9 37-47 % Mean Corpuscular Volume 89.8 80-100 fL Mean Corpuscular Hemoglobin 28.7 25-34 pg Mean Corpuscular Hemoglobin Concent 32.0 32-36 g/dl RDW Standard Deviation 50.4 36.4-46.3 fL RDW Coefficient of Variation 15.4 11.5-14.5 % Platelet Count 208 130-400 K/uL Mean Platelet Volume 10.6 7.4-10.4 fL Prothrombin Time 25.9 9.0-12.0 SECONDS Prothromb Time International Ratio 2.3 0.9-1.1 Activated Partial Thromboplast Time 36.2 21.0-31.0 SECONDS Partial Thromboplastin Ratio 1.4 EKG Vent. rate 60 BPM TX interval * ms QRS duration 168 ms QT/QTc 500/500 ms P-R-T axes 104 -73 77 Ventricular-paced rhythm Abnormal ECG When compared with ECG of 13-DEC-2016 21:49, Electronic ventricular pacemaker has replaced Atrial flutter Impression Assessment and Plan This is an 86 yo F with PMHx of chronic decompensated diastolic heart failure secondary to elevated ventricular response rates with atrial tachycardia, atrial flutter, s/p AV node ablation and ventricular pacemaker insertion 2014, hx of [place], HTN, who presents today for an elective R knee hematoma evacuation scheduled with Dr. Guzman for tomorrow. R knee Hematoma - Will hold Coumadin in light of surgical procedure - Checking INR, labs in process - Pain management with Tylenol, patient currently does not have any pain - PT/OT evals ordered - INR currently 2.3, will order 1x dose of PO Vit K, 2.5 mg Hx chronic decompensated diastolic heart failure secondary to elevated ventricular response rates with atrial tachycardia, atrial flutter, s/p AV node ablation and ventricular pacemaker insertion 2014 Moderate aortic stenosis Mild Aortic regurg - Follows with Dr. Cabello as an outpatient - Echo reviewed from last month - s/p CABG x 5 stents - Stents to the LAD on 2 occasions, last in 2009 in [place] - Holding ASA 81 mg, Lasix 40 mg by mouth QAM for surgical procedure tomorrow. - Continue Ramapril 5 mg BID DVT ppx: Teds, SCDs, no anticoagulation in light of surgical procedure CODE STATUS: Full code Disposition: [place], lives with her , PT/OT eval's Level of Care Med/Surg Advanced Directives Existing Living Will: No Existing Power of Sld Inclusion Teacher: No Resuscitation Status FULL RESUSCITATION VTE Prophylaxis VTE Risk Assessment Done? Y/N: Yes Risk Level: Very Low Given or contraindicated: T.E.D. Stockings, SCD's, Contraindicated (holding coumadin) Reviewed: Pt Seen/Exam by Me History Physician Sliver Cutter Supervision Note: I interviewed and examined the patient. Discussed with PARRIS Almonte and agree with findings and plan as documented in the note. Any exceptions or clarifications are listed here: Pt here for right knee hemoarthrosis and planned washout. She has held her coumadin with last dose 01/20. INR today 2.3. I discussed case with Jagjit NYE. Dr. Guzman will see the pt this evening and plan for knee washout tomorrow. INR will need to be < 1.7 but if needs spinal anesthesia, INR should be <1.2. Pt denies any CP. SHe does have a pacer and has some chronic SOB. ECG is a V-paced rhythm. Has a h/o Chronic COMPENSATED diastolic CHF and moderate , mild AI, and CAD with stents to the LAD x 5 Vitals reviewed, mild HTN AAOx3, NAD RRR, 2/6 GENO at RUSB, no carotid bruits but murmur does radiate CTAB breathing unlabored, no wcr Abd +BS soft NT ND Ext Right knee with large effusion, decreased ROM 0-90 degrees max, purplish discoloration and warmth to touch , no erythema, mild + calf tenderness on right ; left knee appears normal, nontender, 2+ DP pulses bilat Right knee hemarthrosis, on chronic anticoagulation, PAF, pacer, chronic diastolic CHF, ,AI -give Vit K 2.5mg po x 1 now and may need repeat dose vs FFP in the AM -follow INR in the AM -pain control prn with tylenol, she wants to avoid opioids -holding ASA -continue ACEI but holding lasix preop -NPO after midnight -no recent intervention cardiac-wells, recent ECHO with normal LV function, does have valvular disease--> caution with extremes of volume status, but is at medically acceptable risk to undergo this intermediate risk surgery -restart coumadin post-op when safe to do so from Ortho perspective Documented By: Natalie Montejo
[2017-01-22 17:50] LABS: BUN/CREATININE RATIO 17.1 (10-20); CALCIUM 8.9 mg/dl (8.5-10.1); CREATININE 0.88 mg/dl (0.60-1.20); POTASSIUM 4.2 mmol/L (3.5-5.1)
[2017-01-22] MEDS ORDERED: PHYTONADIONE 5 MG TAB PO ONE (18:30)
--- NOTE | 2017-01-22 20:47 | Medical Consult ---
Consultation Note Date of Service Jan 22, 2017. Consultation Note This pleasant 86-year-old female seen at the request of Dr. Morley of medical department. Patient had a fall precipitated by tripping over her dog approximately month ago. He had right knee pain and swelling with a significant hemarthrosis and superficial skin bullae. She is initially seen and treated conservatively however continued to have significant pain in the knee with limited range of motion. Patient was then seen by Dr. Kate this past Wednesday he recommended she have surgery for evacuation hematoma of her right knee and he scheduled her for surgery today however she is chronically on Coumadin due to her chronic cardiac condition. Patient was admitted to the medical service to manage her coagulopathy and reverse her Coumadin prior to surgery. Past medical history: Chronic cardiac disease, history of DE, atherosclerotic heart disease, hypertension, diastolic heart dysfunction. Past surgical history: Pacemaker, CABG 5 less than 2009, previous cardiac stents. Allergies: Morphine and tetracycline. Medications: Coumadin 6 mg daily last taken on 01/20/2017. Please note the lesser medications in the medical record. Social history: She is and lives with her spouse. She is retired teacher. She denies tobacco, alcohol and drug use. She is originally from the [facility]. Physical exam: This is a pleasant 86-year-old female who is lying supine in her hospital room bed. She is alert and oriented 3. Speech is clear and fluent. Affect is appropriate. Examination of the right lower extremity demonstrates the right knee with slight increased warmth compared to the left. She has obvious swelling and effusion of the right knee compared to the left. She has tenderness to palpation diffusely within the right knee joint compared to the left. She has limited active and passive range of motion of the right knee compared to the left with approximately 4-85 of flexion on the right. She has some superficial epidermal slough without any abrasions, rashes or ulcers. There is a dull ecchymotic appearance to the right knee periarticular region compared to the left. She has moderate calf swelling of the right compared to the left. 2 out of 4 edema bilateral lower extremities. Dorsalis pedis and posterior tibial pulses are 2 out of 4 bilateral lower extremities. Cap refill is brisk at approximately 2 seconds at the toes. There is no proximal streaking or erythema on the right lower extremity. Laboratories and radiographs reviewed. Impression: Hemarthrosis right knee secondary to fall and chronic Coumadin use. Recommendations: Patient will be scheduled for arthrotomy of the right knee and evacuation of hemarthrosis to occur tomorrow morning. Patient should have sufficient time for her coagulopathy to be reversed after her administration of 2.5 mg of vitamin K given to her orally earlier today. Consent was signed. The drop her operative site is been marked. The patient will maintain nothing by mouth status after 11 PM this evening. Thank you for the opportunity to consult in the care of this patient. Talat Guzman D.O.
--- NOTE | 2017-01-22 21:05 | DIAGNOSTIC IMAGING REPORT ---
ULTRASOUND RIGHT VENOUS DOPP LOWER EXT UNILAT CLINICAL HISTORY: Right leg swelling. Right knee hematoma. COMPARISON STUDY: No previous studies for comparison. FINDINGS: Real-time and color flow Doppler imaging were performed. Flow was seen within the femoral, popliteal and calf veins with no intraluminal thrombus demonstrated. The saphenous vein is patent. There is a large complex fluid prepatellar collection measuring 10.4 x 4.1 x 1.4 cm. This is consistent with the clinical history of a prepatellar hematoma. IMPRESSION: No evidence of right lower extremity DVT. Electronically signed by: Josh Setin M.D. 01/22/2017 9:04 PM Dictated Date/Time: 01/22/2017 9:03 PM
[2017-01-22 23:01] VITALS: BP 149/80; PULSE 62; TEMP 36.9; O2SAT 96
[2017-01-23] VITALS (11 sets, daily range): BP systolic 131–172; BP diastolic 68–85; PULSE 55–61; TEMP 36.4–37; O2SAT 93–99
[2017-01-23 06:23] LABS: BASO % 0.6 %; BASO ABS # 0.03 K/uL (0-0.2); COMPLETE YES; EOS % 3.1 %; HEMATOCRIT 35.6 % (37-47); LYMPH % 28.9 %; LYMPH ABS # 1.51 K/uL (1.2-3.4); MEAN CELL VOLUME 90.4 fL (80-100); MEAN CORPUSCULAR HEMOGLOBIN 28.7 pg (25-34); MEAN CORPUSCULAR HGB CONC 31.7 g/dl (32-36); MEAN PLATELET VOLUME 9.8 fL (7.4-10.4); MONO % 10.5 %; NEUT % 56.9 %; PLATELET COUNT 185 K/uL (130-400); RED BLOOD COUNT 3.94 M/uL (4.2-5.4); WHITE BLOOD COUNT 5.23 K/uL (4.8-10.8)
[2017-01-23 06:33] LABS: INR 1.5 (0.9-1.1); PROTHROMBIN TIME (PATIENT) 16.7 SECONDS (9.0-12.0)
[2017-01-23 07:01] LABS: BUN/CREATININE RATIO 19.2 (10-20); CALCIUM 8.7 mg/dl (8.5-10.1); CREATININE 0.93 mg/dl (0.60-1.20); POTASSIUM 4.3 mmol/L (3.5-5.1)
[2017-01-23] MEDS ORDERED: BACITRACIN 50000 UNIT VIAL ONE (07:22)
[2017-01-23] MEDS ORDERED: FENTANYL CITRATE INJ 50 MCG/1 ML 2 ML VIAL ONE ×3 (07:30→08:56)
[2017-01-23] MEDS ORDERED: ONDANSETRON INJ 2 MG/ML 2 ML VIAL ONE (07:30)
[2017-01-23] MEDS ORDERED: GLYCOPYRROLATE INJ 0.2 MG/ML VIAL ONE (07:30)
[2017-01-23] MEDS ORDERED: NEOSTIGMINE METHYLSULFATE 5 MG/5 ML SYR ONE (07:30)
[2017-01-23] MEDS ORDERED: DEXAMETHASONE SOD INJ 4 MG/ML VIAL ONE ×2 (07:30→08:31)
[2017-01-23] MEDS ORDERED: ROCURONIUM BROMIDE 10 MG/ML 5 ML VIAL ONE (07:30)
[2017-01-23] MEDS ORDERED: LIDOCAINE HCL 2% 2 ML VIAL (20MG/ML) ONE (07:30)
[2017-01-23] MEDS ORDERED: MIDAZOLAM HCL 1 MG/ML 2ML VIAL ONE (07:30)
[2017-01-23] MEDS ORDERED: PROPOFOL IV EMULSION 10 MG/ML 20 ML VIAL IV ONE (07:30)
--- NOTE | 2017-01-23 07:30 | History & Physical Bridge Note ---
H&P Re-Evaluation Bridge Note: I have examined the patient, reviewed the History & Physical and in the interval since the performance of the History & Physical I have noted the following changes of clinical significance: No changes noted
[2017-01-23] MEDS ORDERED: ONDANSETRON INJ 2 MG/ML 2 ML VIAL IV PRN (07:45)
[2017-01-23] MEDS ORDERED: ATROPINE SULFATE 0.1 MG/ML 5ML SYR IV PRN (07:45)
[2017-01-23] MEDS ORDERED: FENTANYL CITRATE INJ 50 MCG/1 ML 2 ML VIAL IV PRN (07:45)
[2017-01-23] MEDS ORDERED: HYDROmorphone INJ 1 MG/ML SYR IV PRN (07:45)
[2017-01-23] MEDS ORDERED: EpHEDrine SULFATE INJ 50 MG/ML AMP IV PRN (07:45)
[2017-01-23] MEDS ORDERED: CEFAZOLIN SOD 1 GM VIAL ONE (07:49)
[2017-01-23] MEDS ORDERED: BUPIVACAINE 0.5 % 5 MG/1 ML MPF 30ML VIAL ONE (07:51)
[2017-01-23] MEDS ORDERED: HydrALAZINE HCL 20 MG/ML VIAL ONE (08:36)
--- NOTE | 2017-01-23 08:47 | [facility] Operative Report ---
Operative Report Operative Date Jan 23, 2017. Pre-Operative Diagnosis Right knee prepatella hematoma Post-Operative Diagnosis Right knee prepatella hematoma Procedure(s) Performed Incision and Drainage Right Knee Prepatellar Hematoma Surgeon Dr. Talat Guzman Chief Cook Surgeon(s) Candi Guzman PA-C Estimated Blood Loss 1ML Findings See dict Specimens None per surgeon Drains HV x 2 Anesthesia GLMA w/ local Complication(s) None Disposition Recovery Room / PACU Indications This is an 86-year-old woman who had been tripped by her dog several weeks ago. She had a resultant right knee prepatellar hematoma. She had significant superficial skin compromise and bullae and therefore was treated conservatively. She had attempted and failed conservative management including observation, ice, elevation, use of a compressive wrap and use of an assistive device. She continued to have significant discomfort which limited her ability to ambulate, stand and flex the knee with continued serious debilitating pain without resolution spontaneously. Patient is scheduled for surgery as indicated. Description of Procedure The patient was taken to the operative suite and placed supine on the operating room table. After review of the consent and identification of proper operative site the patient was then anesthetized with an LMA placed. A tourniquet was placed high in the right arm cast padding. The right lower extremities and sterilely prepped and draped in usual fashion. The right limb was elevated and the tourniquet was inflated to 325 mmHg. There is no exsanguination performed. A 10 blade scalpel was used to make an incision through the Ioban placed over the patellar region of the midline anterior right knee. Incision was deepened through the subcutaneous tissue. Electrocautery was used to maintain hemostasis. Bovie electrocautery was then used to incise the prepatellar bursa. The miniature gelatinous hematoma was then extricated from the prepatellar bursa using suction and manual manipulation. There is no evidence of purulence within the prepatellar bursa. After the organized clot had been removed 6 L of pulsatile lavage solution with bacitracin was then used to cleanse prepatellar bursa. There is no significant bleeding whatsoever. Next a double-lumen 10 Spanish Hemovac drain was placed into the prepatellar bursal region with the drains exiting superior lateral aspect of the anterior knee. The dermis was closed using buried interrupted 2-0 Polysorb. The skin is closed using interrupted 3-0 nylon sutures. Approximately 25 mL of 0.5% Marcaine was injected around the incision site for postop pain control. A sterile compressive dressing and Pastor wrap was then applied to the knee. The tourniquet was released, the patient was awakened and taken to recovery in stable condition. I attest to the content of the Intraoperative Record and any orders documented therein. Any exceptions are noted below.
[2017-01-23] MEDS ORDERED: LABETALOL HCL IV 5 MG/ML 20ML IV ONE (09:31)
[2017-01-23] MEDS ORDERED: NITROGLYCERIN 0.4 MG SL PER TAB CHARGE UT SCH (10:15)
--- NOTE | 2017-01-23 10:25 | Anesthesiology Progress Note ---
Anesthesia Post Op Note Date & Time Jan 23, 2017 at 10:20 Vital Signs Pain Intensity: 1 Vital Signs Past 12 Hours Date Time Temp Pulse Resp B/P (MAP) Pulse Ox O2 Delivery O2 Flow Rate FiO2 01/23/17 10:16 170/73 01/23/17 10:02 60 18 01/23/17 10:02 60 18 98 01/23/17 10:01 186/74 01/23/17 09:57 59 19 98 01/23/17 09:57 60 17 98 01/23/17 09:56 161/79 01/23/17 09:52 181/64 01/23/17 09:48 172/96 01/23/17 09:47 60 23 01/23/17 09:47 60 23 97 01/23/17 09:46 177/100 01/23/17 09:45 186/96 01/23/17 09:42 60 24 97 01/23/17 09:42 60 17 97 01/23/17 09:41 183/75 01/23/17 09:36 167/76 01/23/17 09:32 60 9 98 01/23/17 09:32 60 7 98 01/23/17 09:31 178/75 01/23/17 09:29 183/74 01/23/17 09:28 184/73 01/23/17 09:27 60 14 01/23/17 09:27 60 14 98 01/23/17 09:26 181/74 01/23/17 09:23 184/82 01/23/17 09:20 174/100 01/23/17 09:18 36.6 60 16 180/82 (125) 97 Nasal Cannula 2 01/23/17 09:18 195/87 01/23/17 09:17 61 16 98 01/23/17 09:17 62 16 98 01/23/17 09:16 185/148 01/23/17 09:12 60 12 01/23/17 09:12 60 12 99 01/23/17 09:11 176/91 01/23/17 09:06 180/104 01/23/17 09:01 177/80 01/23/17 09:00 60 19 100 01/23/17 09:00 60 14 100 01/23/17 08:56 173/88 01/23/17 08:55 60 16 100 01/23/17 08:55 60 16 01/23/17 08:51 199/78 01/23/17 08:47 183/93 01/23/17 08:45 61 21 97 01/23/17 08:45 61 19 190/83 96 01/23/17 08:45 36.6 61 18 190/83 97 Mask 10 01/23/17 07:34 95 Room Air 01/23/17 07:14 36.9 60 18 172/78 (109) 95 Room Air 170/83 (112) 01/23/17 06:19 37.0 60 16 165/85 (111) 96 Room Air 01/23/17 00:00 Room Air 01/22/17 23:01 36.9 62 18 149/80 (103) 96 Room Air Notes Mental Status: alert / awake / arousable, participated in evaluation Pt Amnestic to Procedure: Yes Nausea / Vomiting: adequately controlled Pain: adequately controlled Airway Patency, RR, SpO2: stable & adequate BP & HR: stable & adequate Hydration State: stable & adequate Anesthetic Complications: no major complications apparent The patient did well intraoperatively with no issues. In recovery she was given Hydralazine 5mg IV and Labetalol 5mg IV for elevated BPs in the 180s-200s/ 80. Her BPs on the floor were running 170s/70s HR 60 paced. She has not received her BP medication while in the hospital. I informed Dr. Guzman of this who stated that he will ensure her home medications get restarted. BP prior to discharge from PACU was improved to 160s-170/ 70s HR 60. The patient felt well on discharge with no complaints.
[2017-01-23] MEDS: PANTOprazole SOD 40 MG TAB PO SCH (13:56)
[2017-01-23] MEDS: ACETAMINOPHEN 325 MG TAB PO PRN ×2 (13:57→20:43)
[2017-01-23] MEDS: CEFAZOLIN IV 1,000 MG in DEXTROSE 5% 50ML 50 ML IV SCH ×2 (16:45→23:21)
--- NOTE | 2017-01-23 19:50 | Hospitalist Progress Note ---
Hospitalist Progress Note Date of Service Jan 23, 2017. Subjective Pt evaluation today including: conversation w/ patient, conversation w/ family , physical exam Patient with no complaints Objective Vital Signs Date Time Temp Pulse Resp B/P (MAP) Pulse Ox O2 Delivery O2 Flow Rate FiO2 01/23/17 18:41 36.6 59 18 162/78 (106) 95 Room Air 01/23/17 16:30 Room Air 01/23/17 15:22 36.8 60 18 131/68 (89) 95 Room Air 01/23/17 13:30 36.5 60 18 149/74 (99) 95 Room Air 01/23/17 12:30 36.8 60 16 167/77 (107) 98 Nasal Cannula 2.0 01/23/17 11:30 55 16 165/84 (111) 97 Nasal Cannula 2.0 01/23/17 11:06 36.4 60 20 156/76 (102) 98 Nasal Cannula 2.0 01/23/17 10:31 36.5 61 18 158/81 (106) 99 Nasal Cannula 2.0 01/23/17 10:16 170/73 01/23/17 10:02 60 18 01/23/17 10:02 60 18 98 01/23/17 10:01 186/74 01/23/17 09:57 59 19 98 01/23/17 09:57 60 17 98 01/23/17 09:56 161/79 01/23/17 09:52 181/64 01/23/17 09:48 172/96 01/23/17 09:47 60 23 01/23/17 09:47 60 23 97 01/23/17 09:46 177/100 01/23/17 09:45 186/96 01/23/17 09:42 60 24 97 01/23/17 09:42 60 17 97 01/23/17 09:41 183/75 01/23/17 09:36 167/76 01/23/17 09:32 60 9 98 01/23/17 09:32 60 7 98 01/23/17 09:31 178/75 01/23/17 09:29 183/74 01/23/17 09:28 184/73 01/23/17 09:27 60 14 01/23/17 09:27 60 14 98 01/23/17 09:26 181/74 01/23/17 09:23 184/82 01/23/17 09:20 174/100 01/23/17 09:18 36.6 60 16 180/82 (125) 97 Nasal Cannula 2 01/23/17 09:18 195/87 01/23/17 09:17 61 16 98 01/23/17 09:17 62 16 98 01/23/17 09:16 185/148 01/23/17 09:12 60 12 01/23/17 09:12 60 12 99 01/23/17 09:11 176/91 01/23/17 09:06 180/104 01/23/17 09:01 177/80 01/23/17 09:00 60 19 100 01/23/17 09:00 60 14 100 01/23/17 08:56 173/88 01/23/17 08:55 60 16 100 01/23/17 08:55 60 16 01/23/17 08:51 199/78 01/23/17 08:47 183/93 01/23/17 08:45 61 21 97 01/23/17 08:45 61 19 190/83 96 01/23/17 08:45 36.6 61 18 190/83 97 Mask 10 01/23/17 07:34 95 Room Air 01/23/17 07:14 36.9 60 18 172/78 (109) 95 Room Air 170/83 (112) 01/23/17 06:19 37.0 60 16 165/85 (111) 96 Room Air 01/23/17 00:00 Room Air 01/22/17 23:01 36.9 62 18 149/80 (103) 96 Room Air Physical Exam General Appearance: no apparent distress ENT: hearing grossly normal Neck: trachea midline Respiratory/Chest: lungs clear Cardiovascular: regular rate, rhythm Abdomen: normal bowel sounds Extremities: + pertinent finding (postoperative drain in place) Neurologic/Psychiatric: alert Laboratory Results Last 24 Hours Test 01/23/17 06:08 White Blood Count 5.23 K/uL Red Blood Count 3.94 M/uL Hemoglobin 11.3 g/dL Hematocrit 35.6 % Mean Corpuscular Volume 90.4 fL Mean Corpuscular Hemoglobin 28.7 pg Mean Corpuscular Hemoglobin Concent 31.7 g/dl Platelet Count 185 K/uL Mean Platelet Volume 9.8 fL Neutrophils (%) (Auto) 56.9 % Lymphocytes (%) (Auto) 28.9 % Monocytes (%) (Auto) 10.5 % Eosinophils (%) (Auto) 3.1 % Basophils (%) (Auto) 0.6 % Neutrophils # (Auto) 2.98 K/uL Lymphocytes # (Auto) 1.51 K/uL Monocytes # (Auto) 0.55 K/uL Eosinophils # (Auto) 0.16 K/uL Basophils # (Auto) 0.03 K/uL RDW Standard Deviation 50.8 fL RDW Coefficient of Variation 15.3 % Immature Granulocyte % (Auto) 0.0 % Immature Granulocyte # (Auto) 0.00 K/uL Prothrombin Time 16.7 SECONDS Prothromb Time International Ratio 1.5 Sodium Level 144 mmol/L Potassium Level 4.3 mmol/L Chloride Level 110 mmol/L Carbon Dioxide Level 31 mmol/L Anion Gap 3.0 mmol/L Blood Urea Nitrogen 18 mg/dl Creatinine 0.93 mg/dl Est Creatinine Clear Calc Drug Dose 49.1 ml/min Estimated GFR () 64.5 Estimated GFR (Non- 55.6 BUN/Creatinine Ratio 19.2 Random Glucose 96 mg/dl Calcium Level 8.7 mg/dl Assessment and Plan (1) Traumatic hematoma of right knee Assessment & Plan: Status post surgical intervention we'll restart Coumadin once okay with orthopedic surgery (2) Benign essential hypertension Assessment & Plan: Monitor blood pressure treat her pain postoperatively (3) Chronic diastolic CHF (congestive heart failure) Assessment & Plan: Stable (4) Stented coronary artery
[2017-01-23] MEDS ORDERED: ALUMINUM/MAGNESIUM SUSP 30 ML UDC ONE (20:39)
[2017-01-23] MEDS: WARFARIN SOD 6 MG TAB PO SCH (20:43)
[2017-01-23] MEDS ORDERED: NURSING VERBAL MED ORDER ONE (20:45)
[2017-01-23] MEDS ORDERED: ALUMINUM/MAGNESIUM/SIMETH (MAALOX MAX) 30 ML UDC PO ONE (21:00)
[2017-01-24] VITALS (7 sets, daily range): BP systolic 154–195; BP diastolic 73–94; PULSE 60–73; TEMP 36.5–36.6; O2SAT 93–97
[2017-01-24] MEDS: ACETAMINOPHEN 325 MG TAB PO PRN (03:56)
[2017-01-24 06:40] LABS: INR 1.1 (0.9-1.1); PROTHROMBIN TIME (PATIENT) 12.3 SECONDS (9.0-12.0)
[2017-01-24 06:49] LABS: COMPLETE YES; EOS % 0.1 %; HEMATOCRIT 34.9 % (37-47); IG% 0.2 %; LYMPH % 11.1 %; LYMPH ABS # 0.92 K/uL (1.2-3.4); MEAN CELL VOLUME 90.6 fL (80-100); MEAN CORPUSCULAR HEMOGLOBIN 28.8 pg (25-34); MEAN CORPUSCULAR HGB CONC 31.8 g/dl (32-36); MEAN PLATELET VOLUME 10.6 fL (7.4-10.4); MONO % 7.6 %; PLATELET COUNT 194 K/uL (130-400); RED BLOOD COUNT 3.85 M/uL (4.2-5.4); WHITE BLOOD COUNT 8.32 K/uL (4.8-10.8)
[2017-01-24 07:05] LABS: BUN/CREATININE RATIO 18.7 (10-20); CALCIUM 8.7 mg/dl (8.5-10.1); CREATININE 0.94 mg/dl (0.60-1.20); POTASSIUM 4.5 mmol/L (3.5-5.1)
[2017-01-24] MEDS: CEFAZOLIN IV 1,000 MG in DEXTROSE 5% 50ML 50 ML IV SCH (08:24)
[2017-01-24] MEDS: PANTOprazole SOD 40 MG TAB PO SCH (08:26)
[2017-01-24] MEDS: VITAMIN B COMPLEX TAB PO SCH (08:26)
[2017-01-24] MEDS: FUROSEMIDE 20 MG TAB PO SCH (08:26)
[2017-01-24] MEDS: ASPIRIN 81 MG ECTAB PO SCH (08:26)
--- NOTE | 2017-01-24 09:51 | Orthopedic Progress Note ---
Orthopedic Progress Note Date of Service Jan 24, 2017. Subjective Reports: feeling well, Denies: chest pain, SOB, nausea / vomiting, light headedness, calf pain Additional Notes: Knee pain improved control. Objective calves soft nontender, N/V intact, capillary refill less than 2 sec., dressing C /D/I, A&O x3, toes mobile, hemovac drainage (20cc serosanguinous) Minimal swelling at operative site, DNVSI Date Time Temp Pulse Resp B/P (MAP) Pulse Ox O2 Delivery O2 Flow Rate FiO2 01/24/17 08:25 Room Air 01/24/17 07:25 36.5 60 18 154/80 (104) 95 Room Air 01/24/17 04:29 73 160/73 (102) 01/24/17 04:01 179/80 (113) 01/24/17 03:52 36.6 73 18 195/81 (119) 93 Room Air 01/24/17 00:11 Room Air 01/24/17 00:07 Room Air 01/23/17 23:17 36.8 57 18 149/69 (95) 93 Room Air 01/23/17 18:41 36.6 59 18 162/78 (106) 95 Room Air 01/23/17 16:30 Room Air 01/23/17 15:22 36.8 60 18 131/68 (89) 95 Room Air 01/23/17 13:30 36.5 60 18 149/74 (99) 95 Room Air 01/23/17 12:30 36.8 60 16 167/77 (107) 98 Nasal Cannula 2.0 01/23/17 11:30 55 16 165/84 (111) 97 Nasal Cannula 2.0 01/23/17 11:06 36.4 60 20 156/76 (102) 98 Nasal Cannula 2.0 01/23/17 10:31 36.5 61 18 158/81 (106) 99 Nasal Cannula 2.0 01/23/17 10:16 170/73 01/23/17 10:02 60 18 01/23/17 10:02 60 18 98 01/23/17 10:01 186/74 01/23/17 09:57 59 19 98 01/23/17 09:57 60 17 98 01/23/17 09:56 161/79 01/23/17 09:52 181/64 01/23/17 09:48 172/96 01/23/17 09:47 60 23 01/23/17 09:47 60 23 97 01/23/17 09:46 177/100 01/23/17 09:45 186/96 Laboratory Results 24 Hours: Test 01/24/17 05:48 White Blood Count 8.32 K/uL Red Blood Count 3.85 M/uL Hemoglobin 11.1 g/dL Hematocrit 34.9 % Mean Corpuscular Volume 90.6 fL Mean Corpuscular Hemoglobin 28.8 pg Mean Corpuscular Hemoglobin Concent 31.8 g/dl Platelet Count 194 K/uL Mean Platelet Volume 10.6 fL Neutrophils (%) (Auto) 81.0 % Lymphocytes (%) (Auto) 11.1 % Monocytes (%) (Auto) 7.6 % Eosinophils (%) (Auto) 0.1 % Basophils (%) (Auto) 0.0 % Neutrophils # (Auto) 6.74 K/uL Lymphocytes # (Auto) 0.92 K/uL Monocytes # (Auto) 0.63 K/uL Eosinophils # (Auto) 0.01 K/uL Basophils # (Auto) 0.00 K/uL Prothromb Time International Ratio 1.1 Prothrombin Time 12.3 SECONDS Assessment & Plan Assessment: POD #1 S/P evacuation prepatellar hematoma Plan: Cont IV anbx DVT prophylaxis Cont drain care WBAT R LE Ice to right knee Likely D/C drain and D/C home tomorrow Soc services for D/C planning
--- NOTE | 2017-01-24 18:57 | Hospitalist Progress Note ---
Hospitalist Progress Note Date of Service Jan 24, 2017. Subjective Pt evaluation today including: conversation w/ patient, physical exam, chart review, lab review Patient with no complaints Objective Vital Signs Date Time Temp Pulse Resp B/P (MAP) Pulse Ox O2 Delivery O2 Flow Rate FiO2 01/24/17 15:30 Room Air 01/24/17 15:03 36.6 60 18 159/80 (106) 97 Room Air 01/24/17 08:25 Room Air 01/24/17 07:25 36.5 60 18 154/80 (104) 95 Room Air 01/24/17 04:29 73 160/73 (102) 01/24/17 04:01 179/80 (113) 01/24/17 03:52 36.6 73 18 195/81 (119) 93 Room Air 01/24/17 00:11 Room Air 01/24/17 00:07 Room Air 01/23/17 23:17 36.8 57 18 149/69 (95) 93 Room Air Physical Exam General Appearance: no apparent distress Eyes: normal inspection ENT: hearing grossly normal Neck: trachea midline Respiratory/Chest: lungs clear Cardiovascular: regular rate, rhythm Abdomen: normal bowel sounds Extremities: + pertinent finding (drain in place draining bloody drainage) Laboratory Results Last 24 Hours Test 01/24/17 05:48 White Blood Count 8.32 K/uL Red Blood Count 3.85 M/uL Hemoglobin 11.1 g/dL Hematocrit 34.9 % Mean Corpuscular Volume 90.6 fL Mean Corpuscular Hemoglobin 28.8 pg Mean Corpuscular Hemoglobin Concent 31.8 g/dl Platelet Count 194 K/uL Mean Platelet Volume 10.6 fL Neutrophils (%) (Auto) 81.0 % Lymphocytes (%) (Auto) 11.1 % Monocytes (%) (Auto) 7.6 % Eosinophils (%) (Auto) 0.1 % Basophils (%) (Auto) 0.0 % Neutrophils # (Auto) 6.74 K/uL Lymphocytes # (Auto) 0.92 K/uL Monocytes # (Auto) 0.63 K/uL Eosinophils # (Auto) 0.01 K/uL Basophils # (Auto) 0.00 K/uL RDW Standard Deviation 51.0 fL RDW Coefficient of Variation 15.3 % Immature Granulocyte % (Auto) 0.2 % Immature Granulocyte # (Auto) 0.02 K/uL Prothrombin Time 12.3 SECONDS Prothromb Time International Ratio 1.1 Sodium Level 143 mmol/L Potassium Level 4.5 mmol/L Chloride Level 109 mmol/L Carbon Dioxide Level 30 mmol/L Anion Gap 4.0 mmol/L Blood Urea Nitrogen 18 mg/dl Creatinine 0.94 mg/dl Est Creatinine Clear Calc Drug Dose 48.6 ml/min Estimated GFR () 63.7 Estimated GFR (Non- 54.9 BUN/Creatinine Ratio 18.7 Random Glucose 113 mg/dl Calcium Level 8.7 mg/dl Assessment and Plan (1) Traumatic hematoma of right knee Assessment & Plan: Continue present management check hemoglobin in the morning Coumadin restarted follow daily INR (2) Benign essential hypertension (3) Chronic diastolic CHF (congestive heart failure) Assessment & Plan: Continue Lasix (4) Stented coronary artery Assessment & Plan: Aspirin
[2017-01-24] MEDS: WARFARIN SOD 6 MG TAB PO SCH (20:44)
[2017-01-24] MEDS ORDERED: LISINOPRIL 10 MG TAB PO STA (23:58)
[2017-01-25 03:36] VITALS: BP 160/62
[2017-01-25 06:14] LABS: BASO % 0.5 %; BASO ABS # 0.04 K/uL (0-0.2); COMPLETE YES; HEMATOCRIT 35.7 % (37-47); IG% 0.2 %; LYMPH % 26.2 %; LYMPH ABS # 2.21 K/uL (1.2-3.4); MEAN CELL VOLUME 92.7 fL (80-100); MEAN CORPUSCULAR HEMOGLOBIN 29.6 pg (25-34); MEAN CORPUSCULAR HGB CONC 31.9 g/dl (32-36); MEAN PLATELET VOLUME 10.6 fL (7.4-10.4); MONO % 8.8 %; NEUT % 61.3 %; PLATELET COUNT 171 K/uL (130-400); RED BLOOD COUNT 3.85 M/uL (4.2-5.4); WHITE BLOOD COUNT 8.43 K/uL (4.8-10.8)
[2017-01-25 07:16] VITALS: BP_SYST 135; BP_SYST 165; BP_DIAS 62; BP_DIAS 94; PULSE 64; TEMP 36.9; O2SAT 94
[2017-01-25] MEDS: PANTOprazole SOD 40 MG TAB PO SCH (09:15)
[2017-01-25] MEDS: VITAMIN B COMPLEX TAB PO SCH (09:15)
[2017-01-25] MEDS: ASPIRIN 81 MG ECTAB PO SCH (09:15)
[2017-01-25] MEDS: FUROSEMIDE 20 MG TAB PO SCH (09:16)
[2017-01-25] MEDS ORDERED: LISINOPRIL 10 MG TAB PO SCH (09:30)
[2017-01-25 11:58] VITALS: BP 133/81; PULSE 60
--- NOTE | 2017-01-25 14:07 | Orthopedic Progress Note ---
Orthopedic Progress Note Date of Service Jan 25, 2017. Subjective Post OP Day: 2 Reports: feeling well, Denies: chest pain, SOB, nausea / vomiting, light headedness, calf pain Objective calves soft nontender, N/V intact, dressing C/D/I, incision C/D/I, A&O x3, toes mobile Date Time Temp Pulse Resp B/P (MAP) Pulse Ox O2 Delivery O2 Flow Rate FiO2 01/25/17 11:58 60 133/81 (98) 01/25/17 07:20 Room Air 01/25/17 07:16 36.9 64 18 165/94 (117) 94 Room Air 135/62 (86) 01/25/17 03:36 160/62 (94) 01/25/17 00:00 Room Air 01/24/17 23:43 193/94 (127) 01/24/17 22:52 36.5 60 18 187/80 (115) 97 Room Air 01/24/17 15:30 Room Air 01/24/17 15:03 36.6 60 18 159/80 (106) 97 Room Air Laboratory Results 24 Hours: Test 01/25/17 05:48 White Blood Count 8.43 K/uL Red Blood Count 3.85 M/uL Hemoglobin 11.4 g/dL Hematocrit 35.7 % Mean Corpuscular Volume 92.7 fL Mean Corpuscular Hemoglobin 29.6 pg Mean Corpuscular Hemoglobin Concent 31.9 g/dl Platelet Count 171 K/uL Mean Platelet Volume 10.6 fL Neutrophils (%) (Auto) 61.3 % Lymphocytes (%) (Auto) 26.2 % Monocytes (%) (Auto) 8.8 % Eosinophils (%) (Auto) 3.0 % Basophils (%) (Auto) 0.5 % Neutrophils # (Auto) 5.17 K/uL Lymphocytes # (Auto) 2.21 K/uL Monocytes # (Auto) 0.74 K/uL Eosinophils # (Auto) 0.25 K/uL Basophils # (Auto) 0.04 K/uL Assessment & Plan Assessment: POD #2 S/P evacuation prepatellar hematoma Plan: Cont IV anbx DVT prophylaxis WBAT R LE Ice to right knee DRESSING/DRAIN DC'D EARLIER TODAY. NO DRAINAGE ON DRESSING. SKIN IS THIN, RECOMMEND MINIMAL TO NO TAPE IF POSSIBLE TO AVOID SKIN TEARS/BLISTERING Soc services for D/C planning- SHE WILL NEED DAILY DRESSING CHANGES/SKIN CHECKS FOR A FEW DAYS Discharge Planning Discharge Planning: home with home health (ORTHOPEDICALLY STABLE. OK TO DC HOME TODAY. SPOKE WITH DR. ODELL.)
--- NOTE | 2017-01-25 14:11 | Consultant Recommendations ---
Integration Lead Recommendations Date of Service Jan 25, 2017. Integration Lead Recommendations KEEP INCISION CLEAN AND DRY. DRESSING CHANGES DAILY OR NEEDED. RECOMMEND HOME NURSING FOR DRESSING CHANGES/SKIN MONITORING.- HIGH RISK FOR TEARS/BLISTERING AROUND INCISION SITE. FOLLOW UP WITH DR. HINES IN 10 DAYS FOR SUTURE REMOVAL. [phone]
[2017-01-25 14:19] VITALS: O2SAT 94
[2017-01-25 15:04] VITALS: BP 135/76; PULSE 88; TEMP 36.9; O2SAT 96
[2017-01-25] MEDS ORDERED: WARF6TAB5 PO (15:23)
[2017-01-25] MEDS ORDERED: TRAM-10 PO (15:32)
--- NOTE | 2017-01-25 15:32 | Discharge Instructions ---
Discharge Instructions Date of Service Jan 25, 2017. Admission Reason for Admission: Right Knee Prepatella Hematoma Discharge Discharge Diagnosis / Problem: Right knee hematoma - drainage by Dr. Hines Discharge Goals Goal(s): Learn about illness, Diagnostic testing, Therapeutic intervention Activity Recommendations Activity Limitations: resume your previous activity (as tolerated) . Instructions / Follow-Up Instructions / Follow-Up 1. right knee hematoma - recommendations from the orthopedics team: KEEP INCISION CLEAN AND DRY. IT IS OK TO SHOWER BUT PLEASE KEEP THE DRESSINGS DRY. DRESSING CHANGES DAILY and as needed. RECOMMEND HOME NURSING FOR DRESSING CHANGES/SKIN MONITORING. YOU ARE AT HIGH RISK FOR SKIN TEARS/BLISTERING AROUND THE INCISION SITE and THUS AVOID PUTTING TAPE DIRECTLY ON THE SKIN. FOLLOW UP WITH DR. HINES IN 7-10 DAYS. 2. Resume your coumadin TODAY, 01/25/17. 3. Please have your coumadin level ("INR") checked on Wednesday of this week by your coumadin provider. 4. For pain you may take tramadol 50mg every 6 hours as needed. If you feel this is too strong simply take [id number] tylenol 500-1000mg every 6-8 hours as needed for pain with maximum of 3000mg in 24 hours. Prescription for the tramadol provided. 5. Chronic shortness of breath - please discuss this with your workers compensation legal secretary or primary care doctor to see if more testing is needed. Your oxygen levels at rest and with activity were normal while hospitalized. 6. Please follow-up with your family doctor in 1-[address] weeks in [address] to Dr[address] Hines. Current Hospital Diet Patient's current hospital diet: AHA Diet (Heart Healthy) Discharge Diet Recommended Diet: AHA Diet (Heart Healthy) Procedures Procedures Performed: Incision and Drainage Right Knee Prepatellar Hematoma Pending Studies Studies pending at discharge: no Medical Emergencies . Who to Call and When: Medical Emergencies: If at any time you feel your situation is an emergency, please call 911 immediately. . Non-Emergent Contact Non-Emergency issues call your: Surgeon (orthopedics) Call Non-Emergent contact if: temperature is above 100.5, your pain is not controlled, your pain is worsening, your pain is unusual for you, your pain is concerning you, wound has increased drainage, wound has increased redness, wound has increased pain, you have any medication questions . . "Provider Documentation" section prepared by Khari Cardenas. . Clinical Documentation Manager Recommendations Clinical Documentation Manager Recommendations: KEEP INCISION CLEAN AND DRY. DRESSING CHANGES DAILY OR NEEDED. RECOMMEND HOME NURSING FOR DRESSING CHANGES/SKIN MONITORING.- HIGH RISK FOR TEARS/BLISTERING AROUND INCISION SITE. FOLLOW UP WITH DR. HINES IN 10 DAYS FOR SUTURE REMOVAL. [phone] VTE Core Measure Inpt VTE Proph given/why not?: Warfarin (Coumadin), T.E.D. Stockings, SCD's
[2017-01-25 16:35] VITALS: BP 135/76; PULSE 88; TEMP 36.9; O2SAT 96
--- NOTE | 2017-01-25 20:08 | Discharge Summary ---
Discharge Summary Date of Service Jan 25, 2017. Discharge Summary Admission Date: Jan 22, 2017 at 13:05 Discharge Date: Jan 25, 2017 Discharge Disposition: Home with services Principal Diagnosis: right prepatellar hematoma s/p I & D Problems/Secondary Diagnoses: 1. atrial flutter 2. HTN 3. CAD s/p VA and stents 4. chronic diastolic CHF 5. s/p AV yuval ablation and pacemaker insertion 06/2015 6. hyperlipidemia 7. CKD stage 2 Procedures: 1. Incision and Drainage of prepatellar hematoma - Dr. Papito Guzman 2. RLE venous duplex exam negative for DVT Consultations: orthopedics - Dr. Papito Guzman PT, OT Medication Reconciliation New Medications: Tramadol (Ultram) 50 Mg Tab 50 MG PO Q6H PRN for Pain, #15 TAB 0 Refills Changed Medications: Warfarin Sod (Jantoven) 6 Mg Tab 6 MG PO QPM, #30 TAB 1 Refill (Changed from: Refills: ; Removed Instructions) Continued Medications: Aspirin (Aspirin Ec) 81 Mg Tab 81 MG PO DAILY B-Complex Vitamins (Vitamin B Complex) 1 Tab Tab 1 TAB PO DAILY Coenzyme Q10 (Ubidecarenone) (Co Q10) 30 Mg Cap 1 CAP PO DAILY, CAP UNKNOWN DOSE Furosemide (Lasix) 20 Mg Tab 20 MG PO DAILY Misc Natural Products (Joint Health) 1 Cap Cap 1 CAP PO DAILY Multiple Vitamin (Vitalee) 1 Tab Tab 1 TAB PO DAILY Nitroglycerin (Nitrostat) 0.4 Mg Tab 0.4 MG UT PRN, BTL Pantoprazole (Protonix) 40 Mg Tab 40 MG PO DAILY, #30 TAB Ramipril (Ramipril) 5 Mg Cap 5 MG PO BID, #180 Referrals At Discharge Follow up Referrals: Orthopedics Referral - Within 1-2 Weeks with Talat Guzman D.O. Hospital Course (1) Traumatic hematoma of right knee (2) Benign essential hypertension (3) Chronic diastolic CHF (congestive heart failure) (4) Stented coronary artery HISTORY OF PRESENT ILLNESS: This is an 86yo female with PMHx of chronic diastolic heart failure, atrial flutter, s/p AV node ablation and ventricular pacemaker insertion 2014, hx of VA, HTN, and chronic coumadin use who presented for an elective right knee hematoma evacuation scheduled with Dr. Papito Guzman. She reported she fell about 1 month ago because her dog tripped her. She developed the hematoma at that time but recently it had gotten worse. She reported increasing difficulty with pain as well as walking due to the hematoma. HOSPITAL COURSE: On hospital day #1 the patient received vitamin K to reverse her coumadin in preparation for right knee incision & drainage. On the following day Dr. Papito Guzman performed an incision & drainage of a large prepatellar hematoma of the right knee. Post-operatively the patient did well with improved pain and swelling. She was seen in consult by PT/OT who cleared her for home. On day of discharge her right knee was stable with no drainage from the operative site and no evidence of any infectious process. She will receive daily dressing changes at her home via home health and will follow-up with Dr. Guzman in 7-10 days for a recheck. All other medical problems remained stable while hospitalized. She was instructed to resume her coumadin at 6mg daily and to have her INR checked on 01/29/17, by her coumadin provider. Lastly, the patient reported chronic dyspnea but O2 sats with walking and at rest (in room air) were >92%. Pulmonary exam was normal. She was advised to follow-up with her PCP for this complaint. All other medical problems remained stable while hospitalized. Total Time Spent: Greater than 30 minutes This includes examination of the patient, discharge planning, medication reconciliation, and communication with other providers. Discharge Instructions Please refer to the electronic Patient Visit Report (Discharge Instructions) for additional information. Follow-Up 1. see Dr. Guzman in 7-10 days 2. see coumadin clinic on 01/29/17 Additional Copies To Talat Guzman D.O.; Luke Gardiner M.D. ; [facility]
[2017-04-05] MEDS ORDERED: CEPH500C PO (13:23)
[2017-04-07] MEDS ORDERED: CIPR1TAB11 PO (13:42)
== END 2017-01-25 17:35 | disposition home health service (06) | DRG 488 ==
LOC: C.MSW 13:05 → EDSTATUS 14:00
PROVIDERS: ADMIT Internal Medicine; ATTEND Internal Medicine
PROC: 0SCC0ZZ Extirpation of Matter from Right Knee Joint, Open Approach (ICD-10-PCS; principal; 2017-01-23 07:30)
DX: M25.061 Hemarthrosis, right knee (principal); I48.92 Unspecified atrial flutter; I50.32 Chronic diastolic (congestive) heart failure; I12.9 Hypertensive chronic kidney disease with stage 1 through stage 4 chronic kidney disease, or unspecified chronic kidney disease; I35.0 Nonrheumatic aortic (valve) stenosis; Z95.0 Presence of cardiac pacemaker; E78.5 Hyperlipidemia, unspecified; N18.2 Chronic kidney disease, stage 2 (mild); I25.2 Old myocardial infarction; Z79.82 Long term (current) use of aspirin

== ENCOUNTER → 2017-02-01 | Outpatient (CLI) | payer OTHER, BC ==
[~2017-02-01] MED LIST changes: -CEFAZOLIN 1000MG/55 ML D5W IV SCH; -CEFAZOLIN 2000 MG/60 ML D5W 60 ML IV SCH; +CEPH500C PO; +CIPR1TAB11 PO; -LACTATED RINGER'S 1000ML 1,000 ML IV SCH; -MAGN400T6 PO; -PATIENT'S HEIGHT AND/OR WEIGHT NEEDED SCH; +TRAM-10 PO; -VTMD1000 PO
[2017-02-01 11:58] LABS: INR 1.9 (0.9-1.1); PROTHROMBIN TIME (PATIENT) 20.5 SECONDS (9.0-12.0)
== END | disposition home or self-care (01) ==
LOC: C.LABSPEC 11:32
PROVIDERS: ATTEND Family Medicine
DX: I48.91 Unspecified atrial fibrillation (principal)

== ENCOUNTER → 2017-04-20 | Outpatient (CLI) | payer OTHER, BC ==
[~2017-04-20] MED LIST changes: -CEPH500C PO
[2017-04-20 08:59] LABS: INR 1.4 (0.9-1.1)
== END | disposition home or self-care (01) ==
LOC: C.LABVPSUW 08:36
PROVIDERS: ATTEND Internal Medicine Cardiovascular Disease
DX: I48.2 Chronic atrial fibrillation (principal)

== ENCOUNTER 2017-05-30 15:04 | Emergency (ER) | payer OTHER, BC ==
[~2017-05-30] VITALS: Ht 170.2 cm; Wt 85.0 kg
[~2017-05-30 15:04] MED LIST changes: -CIPR1TAB11 PO
[2017-05-30 15:18] VITALS: TEMP 36.8; Ht 170.2 cm; Wt 85.0 kg
--- NOTE | 2017-05-30 16:05 | EMERGENCY ROOM VISIT NOTE ---
History First contact with patient: 15:40 Chief Complaint: LEG PAIN,LEG INJURY Stated Complaint: TROUBLE W/LEGS/PAINFUL History of Present Illness The patient is a 87 year old female who presents to the Emergency Room with complaints of bilateral lower extremity edema, erythema, tenderness and swelling that has been ongoing for the last 2 months. The patient reports having an injury to both of her legs. She was walking her dog at night. She fell striking her legs against the ground. The patient developed blisters on both of the legs. She reports being treated with a round of antibiotics. She resides at the [facility]. The nurses at the [facility] have been wrapping her legs daily. They have been seeping clear fluid. She denies any fever or chills. She does admit to some dyspnea on exertion. This has been going on for some time. She has oxygen at home as needed Review of Systems 10 system review performed and negative unless noted in HPI or below Past Medical/Surgical History Medical Problems: (1) Atrial flutter (2) Atrial flutter, paroxysmal (3) Benign essential hypertension (4) CHF (congestive heart failure) (5) Chronic diastolic CHF (congestive heart failure) (6) Gait abnormality (7) Traumatic hematoma of right knee (8) Unstable angina Surgical Problems: (1) S/P cardiac pacemaker procedure (2) Stented coronary artery Family History No significant family history Social History Smoking Status: Never Smoker Drug Use: none Marital Status: Housing Status: lives with significant other Occupation Status: retired Current/Historical Medications Scheduled Aspirin (Aspirin Ec), 81 MG PO DAILY B-Complex Vitamins (Vitamin B Complex), 1 TAB PO DAILY Cephalexin Monohydrate (Keflex), 500 MG PO QID Cholecalciferol (Vitamin D3), 1,000 UNITS PO DAILY Coenzyme Q10 (Ubidecarenone) (Co Q10), 1 CAP PO DAILY Furosemide (Lasix), 20 MG PO DAILY Misc Natural Products (Joint Health), 1 CAP PO DAILY Multiple Vitamin (Vitalee), 1 TAB PO DAILY Nitroglycerin (Nitrostat), 0.4 MG UT PRN Ramipril (Ramipril), 5 MG PO BID Warfarin Sod (Jantoven), 6 MG PO QPM Physical Exam Vital Signs Date Time Temp Pulse Resp B/P (MAP) Pulse Ox O2 Delivery O2 Flow Rate FiO2 05/30/17 19:44 79 16 194/88 94 11/26/17 18:13 60 17 115/76 94 Room Air 05/30/17 15:18 36.8 63 17 156/73 94 Room Air Physical Exam GENERAL: 87-year-old female, in no acute distress, nondiaphoretic, well- developed well-nourished. HEAD: Normocephalic atraumatic. MOUTH: Mucous membranes moist. NECK: No JVD. HEART: Irregularly irregular rhythm without murmurs gallops or rubs. LUNGS: Clear to auscultation bilaterally without wheezes, rales or rhonchi. No accessory muscle use. MUSCULOSKELETAL: Trace pitting edema with erythema, warmth and tenderness in the lower extremities distal to the knee bilaterally. There is some serous drainage from some superficial wounds bilaterally. DP pulse +1 bilaterally. Strength 5/5 throughout. NEURO: Patient was alert and oriented to person place and time. Normal sensation to touch. No focal neurological deficits. Medical Decision & Procedures ER Provider Diagnostic Interpretation: Chest x-ray CHEST ONE VIEW PORTABLE HISTORY: dyspnea COMPARISON: Chest 12/13/2016. FINDINGS: The lungs remain clear. The heart is mildly enlarged. This remains unchanged. Left-sided pacemaker. No pleural effusions. No pneumothorax. IMPRESSION: Stable cardiomegaly. Electronically signed by: Spike Jackson M.D. 05/30/2017 5:02 PM Dictated Date/Time: 05/30/2017 5:01 PM The status of this report is Signed. Draft = Not yet reviewed or approved by Radiologist. Signed = Reviewed and approved by Radiologist. Laboratory Results 05/30/17 17:30 Red Blood Count 4.29, Mean Corpuscular Volume 87.6, Mean Corpuscular Hemoglobin 27.5, Mean Corpuscular Hemoglobin Concent 31.4, Neutrophils (%) (Auto) 64.3, Lymphocytes (%) (Auto) 22.2, Monocytes (%) (Auto) 10.2, Eosinophils (%) (Auto) 2.4, Basophils (%) (Auto) 0.6, Neutrophils # (Auto) 4.20, Lymphocytes # (Auto) 1.45, Monocytes # (Auto) 0.67, Eosinophils # (Auto) 0.16, Basophils # (Auto) 0.04 05/30/17 17:30 Test 05/30/17 17:30 White Blood Count 6.54 K/uL (4.8-10.8) Red Blood Count 4.29 M/uL (4.2-5.4) Hemoglobin 11.8 g/dL (12.0-16.0) Hematocrit 37.6 % (37-47) Mean Corpuscular Volume 87.6 fL (80-100) Mean Corpuscular Hemoglobin 27.5 pg (25-34) Mean Corpuscular Hemoglobin Concent 31.4 g/dl (32-36) Platelet Count 200 K/uL (130-400) Neutrophils (%) (Auto) 64.3 % Lymphocytes (%) (Auto) 22.2 % Monocytes (%) (Auto) 10.2 % Eosinophils (%) (Auto) 2.4 % Basophils (%) (Auto) 0.6 % Neutrophils # (Auto) 4.20 K/uL (1.4-6.5) Lymphocytes # (Auto) 1.45 K/uL (1.2-3.4) Monocytes # (Auto) 0.67 K/uL (0.11-0.59) Eosinophils # (Auto) 0.16 K/uL (0-0.5) Basophils # (Auto) 0.04 K/uL (0-0.2) Immature Granulocyte % (Auto) 0.3 % Immature Granulocyte # (Auto) 0.02 K/uL (0.00-0.02) Prothrombin Time 23.5 SECONDS (9.0-12.0) Prothromb Time International Ratio 2.1 (0.9-1.1) Anion Gap 7.0 mmol/L (3-11) Est Creatinine Clear Calc Drug Dose 48.8 ml/min Estimated GFR () 65.7 Estimated GFR (Non- 56.7 BUN/Creatinine Ratio 20.2 (10-20) Lactic Acid Level 1.9 mmol/L (0.4-2.0) Calcium Level 8.4 mg/dl (8.5-10.1) Total Bilirubin 0.7 mg/dl (0.2-1) Aspartate Amino Transf (AST/SGOT) 25 U/L (15-37) Alanine Aminotransferase (ALT/SGPT) 18 U/L (12-78) Alkaline Phosphatase 81 U/L (45-117) Total Protein 6.9 gm/dl (6.4-8.2) Albumin 3.2 gm/dl (3.4-5.0) Globulin 3.7 gm/dl (2.5-4.0) Albumin/Globulin Ratio 0.9 (0.9-2) Medications Administered Medications (Trade) Dose Ordered Sig/Eron Route Start Time Stop Time Status Last Admin Dose Admin Ceftriaxone Sodium (Rocephin Inj) 1 gm NOW STAT IV 05/30/17 16:48 05/30/17 16:49 DC 05/30/17 16:48 1 GM ED Course Patient was seen and examined Vital signs including blood pressure were reviewed medications list was verified with patient Labs were obtained, and a saline lock was established The patient was given 1 dose of Rocephin 1 g IV Imaging was performed and reviewed I discussed the patient's workup with the patient and her . They voiced understanding. The patient was also examined by my supervising physician, Dr. Orona who is in agreement with my plan. The legs were bandaged I reviewed discharge instructions the patient. They voiced understanding and had no further questions. Medical Decision Differential diagnosis: Cellulitis, sepsis, fluid overload/CHF, venous stasis This patient is an 87-year-old female that presents to the emergency department with redness, swelling and pain in her lower extremities and has been going on and getting worse for the last few months. She reports an initial injury while walking her dog. The patient has been getting her legs wrapped by the nursing staff at the [facility]. She was sent here because of increased redness. She denied any fever. On exam, her lower extremities were fairly erythematous, edematous and warm to touch. They were seeping serous fluid. She is nontoxic in appearance. There is no leukocytosis. I do think she should be treated with antibiotics for cellulitis. She will also need daily care/bandaging to her legs to prevent venous stasis. The patient should follow-up with her primary care physician for a recheck in 2 days. She agrees to return to the emergency department with any new, worsening or concerning symptoms; especially , increased redness, swelling, pain or fever This chart was completed in part utilizing m2fx Speech Voice Recognition software. Attempts were made to minimize the grammatical errors, random word insertions, pronoun errors and incomplete sentences. Any formal questions or concerns about the content, text or information contained within the body of this dictation should be directly addressed to the provider for clarification. Medication Reconcilliation Current Medication List: was personally reviewed by me Blood Pressure Screening Patient's blood pressure: Elevated blood pressure Blood pressure disposition: Did not require urgent referral Impression Primary Impression: Cellulitis Departure Information Dispostion Home / Self-Care Condition GOOD Prescriptions Cephalexin Monohydrate (Keflex) 500 Mg Cap 500 MG PO QID for 7 Days, #28 CAP Prov: Josephine Nix PA-C 05/30/17 Referrals [facility] at [facility] (PCP) Patient Instructions My [facility] Additional Instructions You were evaluated in the emergency department for leg swelling, pain and redness. This is consistent with cellulitis, which is an infection of the skin and soft tissue Please take the entire course of antibiotics. Please take a probiotic daily or eat yogurt daily while on this medication. Please have your PT/INR rechecked in 2 days as antibiotics can affect your Coumadin level Please re-bandage legs daily. Wash daily with soapy water and rinse Please follow-up with your primary care physician in 2 days for a recheck Please do not hesitate to return to the emergency department with any new or worsening symptoms, especially fever, increased redness, swelling or pain.
[2017-05-30] MEDS ORDERED: CEFTRIAXONE SOD INJ 1 GM ADDVIAL IV STA (16:48)
--- NOTE | 2017-05-30 17:03 | DIAGNOSTIC IMAGING REPORT ---
CHEST ONE VIEW PORTABLE HISTORY: dyspnea COMPARISON: Chest 12/13/2016. FINDINGS: The lungs remain clear. The heart is mildly enlarged. This remains unchanged. Left-sided pacemaker. No pleural effusions. No pneumothorax. IMPRESSION: Stable cardiomegaly. Electronically signed by: Spike Jackson M.D. 05/30/2017 5:02 PM Dictated Date/Time: 05/30/2017 5:01 PM
[2017-05-30] MEDS ORDERED: MISCCAP46 PO (17:23)
[2017-05-30] MEDS ORDERED: CHOL1000 PO (17:25)
--- NOTE | 2017-05-30 17:44 | EMERGENCY ROOM VISIT NOTE ---
ED Visit Note First contact with patient: 15:40 This Patient was discussed with the physician [employer] Instructor, Josephine Nix PA-C. The pertinent historical and physical exam findings were confirmed. I agree with the studies ordered and with the interpretations of these studies. I agree with the disposition and care plan.
[2017-05-30 17:56] LABS: BASO % 0.6 %; BASO ABS # 0.04 K/uL (0-0.2); COMPLETE YES; EOS % 2.4 %; HEMATOCRIT 37.6 % (37-47); IG% 0.3 %; LYMPH % 22.2 %; LYMPH ABS # 1.45 K/uL (1.2-3.4); MEAN CELL VOLUME 87.6 fL (80-100); MEAN CORPUSCULAR HEMOGLOBIN 27.5 pg (25-34); MEAN CORPUSCULAR HGB CONC 31.4 g/dl (32-36); MONO % 10.2 %; NEUT % 64.3 %; PLATELET COUNT 200 K/uL (130-400); RED BLOOD COUNT 4.29 M/uL (4.2-5.4); WHITE BLOOD COUNT 6.54 K/uL (4.8-10.8)
[2017-05-30 18:00] LABS: INR 2.1 (0.9-1.1); PROTHROMBIN TIME (PATIENT) 23.5 SECONDS (9.0-12.0)
[2017-05-30 18:15] LABS: BUN/CREATININE RATIO 20.2 (10-20); CALCIUM 8.4 mg/dl (8.5-10.1); CREATININE 0.91 mg/dl (0.60-1.20); POTASSIUM 4.3 mmol/L (3.5-5.1)
[2017-05-30 18:17] LABS: ALB/GLOB RATIO 0.9 (0.9-2)
[2017-05-30] MEDS ORDERED: CEPH500C PO (18:45)
[2017-05-30 19:44] VITALS: BP 194/88; PULSE 79; O2SAT 94
== END 2017-05-30 19:35 | disposition home or self-care (01) ==
LOC: C.EDB 15:07
DX: L03.115 Cellulitis of right lower limb (principal); L03.116 Cellulitis of left lower limb; I48.92 Unspecified atrial flutter; I11.0 Hypertensive heart disease with heart failure; I50.32 Chronic diastolic (congestive) heart failure; Z95.5 Presence of coronary angioplasty implant and graft; Z95.0 Presence of cardiac pacemaker; Z79.82 Long term (current) use of aspirin; Z79.01 Long term (current) use of anticoagulants

== ENCOUNTER → 2017-06-07 | Outpatient (CLI) | payer OTHER, BC ==
[~2017-06-07] MED LIST changes: +CEPH500C PO; +CHOL1000 PO; -PANT1TAB48 PO; -TRAM-10 PO
[2017-06-07 09:38] LABS: INR 1.9 (0.9-1.1); PROTHROMBIN TIME (PATIENT) 21.4 SECONDS (9.0-12.0)
== END | disposition home or self-care (01) ==
LOC: C.LABVPSUA 09:02
PROVIDERS: ATTEND Internal Medicine Critical Care Medicine
DX: I48.91 Unspecified atrial fibrillation (principal)

== ENCOUNTER → 2017-07-14 | Outpatient (CLI) | payer OTHER, BC ==
[~2017-07-14] MED LIST changes: -CEPH500C PO
[2017-07-14 09:29] LABS: INR 2.4 (0.9-1.1)
== END | disposition home or self-care (01) ==
LOC: C.LABVPSUA 09:05
PROVIDERS: ATTEND Internal Medicine Critical Care Medicine
DX: I48.91 Unspecified atrial fibrillation (principal)

== ENCOUNTER → 2017-08-10 | Outpatient (CLI) | payer OTHER, BC ==
--- NOTE | 2017-08-10 16:10 | DIAGNOSTIC IMAGING REPORT ---
CERVICAL SPINE W/O CLINICAL HISTORY: 87 years-old Female presenting with PAIN AND FRACTURE. TECHNIQUE: Multidetector CT of the cervical spine was performed without the use of intravenous contrast. IV contrast: None. A dose lowering technique was used consistent with the principles of ALARA (as low as reasonably achievable). COMPARISON: None. CT DOSE (mGy.cm): The estimated cumulative dose is 281.27 mGy.cm. FINDINGS: Md Senior Research Scientist topogram: Left subclavian single lead implanted cardiac device. Exaggerated cervical lordosis. No acute fracture or subluxation. Mild multilevel degenerative changes. Vertebral bodies maintain normal height and alignment. Intervertebral disc spaces preserved with the exception of mild disc height loss at C4-5 and C5-6. At C5-6, there is a disc osteophyte complex with mild posterior bony spurring. This is not significantly narrow the spinal canal. Facet arthropathy results in osseous neural foraminal narrowing on the left at C4-5 and C5-6. Paraspinal soft tissues within normal limits. Atherosclerosis. Left thyroid lobe nodule measuring over 1 cm. Mosaic attenuation and scarring at the apices. Lobular solid 10 mm nodule at the paramediastinal left apex (series 3 image 479). IMPRESSION: 1. No acute osseous injury of the cervical spine. 2. Mild multilevel degenerative changes. Suspected osseous neural foraminal narrowing on the left at C4-5 and C5-6 secondary to facet arthropathy. 3. Solid 10 mm pulmonary nodule at the left apex. Further evaluation with chest CT recommended. Electronically signed by: Luke Ye M.D. 08/10/2017 4:09 PM Dictated Date/Time: 08/10/2017 4:04 PM
== END | disposition home or self-care (01) ==
LOC: C.CTS 15:48
PROVIDERS: ATTEND Internal Medicine Critical Care Medicine
DX: M54.2 Cervicalgia (principal); M47.812 Spondylosis without myelopathy or radiculopathy, cervical region; R91.1 Solitary pulmonary nodule

== ENCOUNTER → 2017-08-19 | Outpatient (CLI) | payer OTHER, BC ==
[2017-08-19 10:09] LABS: INR 1.8 (0.9-1.1)
== END | disposition home or self-care (01) ==
LOC: C.LABVPSUW 09:40
PROVIDERS: ATTEND Internal Medicine Cardiovascular Disease
DX: I48.2 Chronic atrial fibrillation (principal)

== ENCOUNTER → 2017-09-10 | Outpatient (CLI) | payer OTHER, BC ==
[2017-09-10 09:12] LABS: INR 1.5 (0.9-1.1)
== END | disposition home or self-care (01) ==
LOC: C.LABVPSUW 08:46
PROVIDERS: ATTEND Internal Medicine Cardiovascular Disease
DX: I48.2 Chronic atrial fibrillation (principal)

== ENCOUNTER → 2017-09-22 | Outpatient (CLI) | payer OTHER, BC | END | disposition home or self-care (01) | LOC: C.LABVPSUW 12:54 | PROVIDERS: ATTEND Internal Medicine Critical Care Medicine | DX: R30.0 Dysuria (principal) ==

== ENCOUNTER 2017-10-01 15:11 | Emergency (ER) | payer OTHER, BC ==
[~2017-10-01] VITALS: Ht 170.2 cm; Wt 85.0 kg
[2017-10-01 15:22] VITALS: TEMP 36.9; Ht 170.2 cm; Wt 85.0 kg
[2017-10-01] MEDS ORDERED: ALBUT/IPRATROP 3MG/0.5MG NEB 3 ML VIAL INH STA (16:51)
--- NOTE | 2017-10-01 16:55 | EMERGENCY ROOM VISIT NOTE ---
History Report prepared by Aure: Jose Raul Olea Under the Supervision of: Dr. Chris Crook M.D. First contact with patient: 16:39 Chief Complaint: SHORTNESS OF BREATH Stated Complaint: SOB History of Present Illness The patient is an 87 year old female who presents to the Emergency Room with complaints of a constant cough that began a few months that has been worsening for the past few days. She currently rates her discomfort a 5/10 in severity. She states that changes in the weather and exertion worsen her SOB. She states that she has burning blisters on her leg which she goes to the wound clinic for. She uses Advair. She denies any new medications. She states she does not follow up with a hunter trapper. Source of History: patient Onset: few months ago Symptom Intensity: pain rated as 5/10 Quality: other (cough) Timing: constant (few months ago), worsening (past few days) Modifying Factors (Worsening): exertion, other (weather changes) Associated Symptoms: + SOB Note: Patient reports burning blisters on legs. Review of Systems See HPI for pertinent positives & negatives. A total of 10 systems reviewed and were otherwise negative. Past Medical & Surgical Medical Problems: (1) Atrial flutter (2) Atrial flutter, paroxysmal (3) Benign essential hypertension (4) CHF (congestive heart failure) (5) Chronic diastolic CHF (congestive heart failure) (6) Gait abnormality (7) Traumatic hematoma of right knee (8) Unstable angina Surgical Problems: (1) S/P cardiac pacemaker procedure (2) Stented coronary artery Family History No significant family history Social History Smoking Status: Former Smoker Drug Use: none Marital Status: Housing Status: lives with significant other Occupation Status: retired Current/Historical Medications Scheduled Aspirin (Aspirin Ec), 81 MG PO DAILY B-Complex Vitamins (Vitamin B Complex), 1 TAB PO DAILY Cholecalciferol (Vitamin D3), 1,000 UNITS PO DAILY Coenzyme Q10 (Ubidecarenone) (Co Q10), 1 CAP PO DAILY Furosemide (Furosemide), 1.5 TAB PO DAILY Misc Natural Products (Joint Health), 1 CAP PO DAILY Multiple Vitamin (Vitalee), 1 TAB PO DAILY Nitroglycerin (Nitrostat), 0.4 MG UT PRN Ramipril (Ramipril), 5 MG PO BID Warfarin Sod (Jantoven), 6 MG PO QPM Allergies Coded Allergies: Tetracycline (Verified Allergy, Unknown, ., 10/01/17) Morphine (Verified Adverse Reaction, Unknown, MAKES HER SICK, 10/01/17) Sulfamethoxazole w/Trimethoprim (Verified Adverse Reaction, Unknown, shortness of breath, lightheadedness, 10/01/17) Physical Exam Vital Signs Date Time Temp Pulse Resp B/P (MAP) Pulse Ox O2 Delivery O2 Flow Rate FiO2 10/01/17 18:30 60 20 206/100 95 10/01/17 17:34 60 16 209/100 100 Nebulizer 10/01/17 15:25 95 Room Air 10/01/17 15:22 36.9 68 17 150/82 95 Room Air Physical Exam GENERAL: Patient is well appearing and in no acute distress. EYES: No scleral icterus, unremarkable pupils. ENT: Mucous membranes moist, no nasal congestion. NECK: No masses appreciated, no meningismus, trachea is midline. RESPIRATORY: Faint wheezing and crackles at bases of lungs. No dyspnea. No rhonchi. CARDIOVASCULAR: Regular rate and rhythm. No murmurs, rubs, gallops appreciated. GASTROINTESTINAL: Abdomen soft, nontender, no peritonitis. Bowel sounds positive. No masses appreciated. BACK: No midline tenderness, no CVA tenderness EXTREMITIES: Mild edema and erythema of bilateral lower legs. Well dressed wounds. Normal motion all extremities, no cyanosis. NEUROLOGIC: Alert and oriented, no acute motor or sensory deficits, no focal weakness, cranial nerves grossly intact. SKIN: No rash, no jaundice, no diaphoresis. Medical Decision & Procedures ER Provider Diagnostic Interpretation: Radiology results and stated below per my review and radiologist interpretation: TWO VIEW CHEST CLINICAL HISTORY: Cough of several months duration. FINDINGS: PA and lateral chest radiographs are compared to study dated 05/30/2017. The PA view is degraded by patient rotation. A single lead cardiac pacemaker is unchanged in position and partially obscures the left lower chest. The heart is enlarged and there is atherosclerotic calcification of the thoracic aorta. The pulmonary vasculature is noncongested. Chronic interstitial thickening is similar to previous. No airspace consolidation or pleural effusion is identified. There is no pneumothorax. The skeletal structures are osteopenic. Degenerative change and kyphoscoliosis are noted in the thoracic spine. IMPRESSION: 1. Cardiomegaly and cardiac pacemaker. There is no radiographic evidence of congestive failure. 2. No airspace consolidation or pleural effusion is identified. Electronically signed by: Rod Lindsay M.D. 10/01/2017 5:16 PM Dictated Date/Time: 10/01/2017 5:15 PM Medications Administered Medications (Trade) Dose Ordered Sig/Eron Route Start Time Stop Time Status Last Admin Dose Admin Albuterol/ Ipratropium (Duoneb) 3 ml NOW STAT INH 10/01/17 16:51 10/01/17 16:52 DC 10/01/17 17:32 3 ML Albuterol (Ventolin Hfa Inhaler) 2 puffs NOW ONCE INH 10/01/17 18:15 10/01/17 18:16 DC 10/01/17 18:21 2 PUFFS ECG Per My Interpretation Indication: SOB/dyspnea Rate (beats per minute): 63 Rhythm: other (ventricular paced rhythm) Findings: no acute ischemic change, no ectopy ED Course 1639: The patient was evaluated in room B6. A complete history and physical exam was performed. 1809: I checked n the patient. She feels better after a nebulizer treatment. We discussed her high blood pressure. She states she did not take her blood pressure medication today. She declines steroids and agrees to use an inhaler for the next few days. 1830: Reevaluated the patient. Discussed results and discharge instructions: She verbalized understanding and agreement. The patient is ready for discharge. Medical Decision Differential: Infectious, Reactive Airway Disease, Pneumonia, Pneumothorax, COPD , CHF, ACS, Pulmonary Embolism, MSK, GI, Dissection, amongst other etiologies entertained. Very pleasant 87 yr old female arrives for evaluation of cough over last few days. Long history of asthma like issues and on Advair already. She is dealing with wounds bilateral lower legs but there is not evidence DVT by exam. SHOB not consistent with PE and she does have some wheezing at bases. Suspect she has some mild bronchitis from recent weather change which she makes clear is pretty typical for her. States she is only here because she was sent over. Breathing comfortably post neb with no further wheezing. She does not want to try steroids which seems reasonable as already dealing with wound issues. Hold off on anti-histamines given her age. She did well with neb so seems reasonable starting inhaler as needed at home. She will follow up with PCP in next few days. Reviewed symptoms requiring RTED. Medication Reconcilliation Current Medication List: was personally reviewed by me Blood Pressure Screening Patient's blood pressure: Elevated blood pressure Blood pressure disposition: Elevated BP felt to be situational Impression Primary Impression: Acute bronchitis Scribe Attestation The scribe's documentation has been prepared under my direction and personally reviewed by me in its entirety. I confirm that the note above accurately reflects all work, treatment, procedures, and medical decision making performed by me. Departure Information Dispostion Home / Self-Care Referrals Luke Gardiner M.D. (PCP) Forms HOME CARE DOCUMENTATION FORM, IMPORTANT VISIT INFORMATION Patient Instructions My [facility] Additional Instructions Use inhaler as instructed 2 Puffs every 6 hours over the next few days while you 're awake. Return if worsening breathing chest pain, passing out, or other concerns. Follow up with your primary provider in the next few days.
--- NOTE | 2017-10-01 17:17 | DIAGNOSTIC IMAGING REPORT ---
TWO VIEW CHEST CLINICAL HISTORY: Cough of several months duration. FINDINGS: PA and lateral chest radiographs are compared to study dated 05/30/2017. The PA view is degraded by patient rotation. A single lead cardiac pacemaker is unchanged in position and partially obscures the left lower chest. The heart is enlarged and there is atherosclerotic calcification of the thoracic aorta. The pulmonary vasculature is noncongested. Chronic interstitial thickening is similar to previous. No airspace consolidation or pleural effusion is identified. There is no pneumothorax. The skeletal structures are osteopenic. Degenerative change and kyphoscoliosis are noted in the thoracic spine. IMPRESSION: 1. Cardiomegaly and cardiac pacemaker. There is no radiographic evidence of congestive failure. 2. No airspace consolidation or pleural effusion is identified. Electronically signed by: Rod Lindsay M.D. 10/01/2017 5:16 PM Dictated Date/Time: 10/01/2017 5:15 PM
[2017-10-01] MEDS ORDERED: LSX40 PO (18:12)
[2017-10-01] MEDS ORDERED: WARF6TAB5 PO (18:12)
[2017-10-01] MEDS ORDERED: ALBUTEROL HFA 8 GM INHALER INH ONE (18:15)
[2017-10-01 18:30] VITALS: BP 206/100; PULSE 60; O2SAT 95
== END 2017-10-01 18:41 | disposition home or self-care (01) ==
LOC: C.EDB 15:12
DX: J20.9 Acute bronchitis, unspecified (principal); I48.92 Unspecified atrial flutter; I11.0 Hypertensive heart disease with heart failure; I50.32 Chronic diastolic (congestive) heart failure; Z95.0 Presence of cardiac pacemaker; Z95.5 Presence of coronary angioplasty implant and graft; Z87.891 Personal history of nicotine dependence; Z79.82 Long term (current) use of aspirin; Z79.01 Long term (current) use of anticoagulants; Z88.5 Allergy status to narcotic agent; Z88.2 Allergy status to sulfonamides; Z88.1 Allergy status to other antibiotic agents

== ENCOUNTER → 2017-10-08 | Outpatient (CLI) | payer OTHER, BC ==
[~2017-10-08] MED LIST changes: -FURO-85 PO; +LSX40 PO
[2017-10-08 08:54] LABS: INR 1.4 (0.9-1.1)
[2017-10-08 09:17] LABS: BLOOD UREA NITROGEN 19 mg/dl (7-18); CALCIUM 9.1 mg/dl (8.5-10.1); CARBON DIOXIDE 31 mmol/L (21-32); CREATININE 0.98 mg/dl (0.60-1.20); GLUCOSE 110 mg/dl (70-99); POTASSIUM 4.1 mmol/L (3.5-5.1); SODIUM 141 mmol/L (136-145)
== END ==
LOC: C.LABSPEC 08:28 → C.LABVPSUA 08:29
PROVIDERS: ATTEND Nurse Practitioner
DX: I50.9 Heart failure, unspecified (principal); I48.91 Unspecified atrial fibrillation; I11.0 Hypertensive heart disease with heart failure

== ENCOUNTER → 2017-11-02 | Outpatient (CLI) | payer OTHER, BC ==
[2017-11-02 10:13] LABS: INR 2.4 (0.9-1.1)
== END ==
LOC: C.LABVPSUA 09:28
PROVIDERS: ATTEND Internal Medicine Critical Care Medicine
DX: I48.91 Unspecified atrial fibrillation (principal)

== ENCOUNTER → 2018-01-27 | Outpatient (CLI) | payer OTHER, BC ==
[~2018-01-27] MED LIST changes: +LINE1TAB2 PO
[2018-01-27 10:14] LABS: BLOOD UREA NITROGEN 27 mg/dl (7-18); CARBON DIOXIDE 29 mmol/L (21-32); CREATININE 1.19 mg/dl (0.60-1.20); GLUCOSE 104 mg/dl (70-99); POTASSIUM 3.9 mmol/L (3.5-5.1); SODIUM 138 mmol/L (136-145)
== END ==
LOC: C.LABVPSUA 08:26
PROVIDERS: ATTEND Internal Medicine Critical Care Medicine
DX: N28.9 Disorder of kidney and ureter, unspecified (principal)

== ENCOUNTER → 2018-02-18 | Outpatient (CLI) | payer OTHER, BC ==
[~2018-02-18] MED LIST changes: -LINE1TAB2 PO; +NITR-5 PO
== END | disposition home or self-care (01) ==
LOC: C.LABSPEC 10:19
PROVIDERS: ATTEND Nurse Practitioner
DX: R30.0 Dysuria (principal)

== ENCOUNTER → 2018-02-28 | Outpatient (CLI) | payer OTHER, BC ==
[2018-02-28 10:29] LABS: INR 2.1 (0.9-1.1)
== END | disposition home or self-care (01) ==
LOC: C.LABVPSUW 10:02
PROVIDERS: ATTEND Internal Medicine
DX: I48.2 Chronic atrial fibrillation (principal)

== ENCOUNTER 2019-09-26 14:26 | Inpatient (IN) ==
[2019-09-26] MEDS ORDERED: SODIUM CHLORIDE 0.9% 1000ML 1,000 ML IV ONE (14:51)
--- NOTE | 2019-09-26 15:15 | Emergency Department Note ---
History of Present Illness General Chief complaint: Illness Time Seen by Provider: 09/26/19 14:40 Source: patient Mode of arrival: EMS Limitations: no limitations History of Present Illness Provider complaint: Generalized weakness and diarrhea The patient is an 89-year-old female who presents to the ED with a chief complaint of nausea, diarrhea for 1 week, headache and weakness. She also reports some nausea. The patient had some outpatient blood work that revealed a low sodium and potassium as well as a BUN of 116 and a creatinine of 6.62. Her baseline creatinine in August, 1 month ago was 0.92. The patient has no other specific complaints. She states that she feels that this is psychological and she feels like she is depressed. She denies any abdominal pains. She states that she has had decreased p.o. intake. She has no other complaints. She does have C. difficile testing pending. She has not taken anything for her symptoms. She lives at the [facility]. Home Medications Home Medications Medication Instructions Recorded Confirmed Type aspirin 81 mg tablet,delayed 81 mg PO QAM 03/03/18 06/27/19 History release cholecalciferol (vitamin D3) 25 1,000 units PO QAM 03/03/18 06/27/19 History mcg (1,000 unit) capsule coenzyme Q10 10 mg capsule 200 mg PO QAM 03/03/18 06/27/19 History ramipril 5 mg capsule 5 mg PO BID 03/03/18 06/27/19 History warfarin 6 mg tablet 6 mg PO DAILY tab 03/03/18 06/27/19 History isosorbide dinitrate 20 mg PO BID 09/14/18 06/27/19 History nitroglycerin 0.4 mg SUBLINGUAL DIRECTED PRN 09/14/18 06/27/19 History pantoprazole 40 mg PO QAM 09/14/18 06/27/19 History vitamin B complex 1 tab PO QAM 09/14/18 06/27/19 History acetaminophen [Tylenol Extra 500 - 1,000 mg PO Q6H PRN MDD 3 GM 03/27/19 06/27/19 History Strength] APAP/24 HRS acetaminophen-codeine 1 tab PO Q6H PRN 03/27/19 06/27/19 History [Tylenol-Codeine #3] magnesium oxide 400 mg PO BID 04/17/19 06/27/19 History oxycodone 2.5 mg PO Q6H PRN #15 tab 05/03/19 06/27/19 Rx polyethylene glycol 3350 [Miralax] 17 gm PO DAILY #14 ea 05/03/19 06/27/19 Rx furosemide 40 mg PO DAILY 06/27/19 06/27/19 History Allergies Allergy/AdvReac Type Severity Reaction Status Date / Time shellfish derived Allergy Severe Swelling Verified 06/27/19 16:11 of Lip/Tongue/Throat tetracycline Allergy Unknown Canker Verified 06/27/19 16:11 Sore(s) Bactrim AdvReac Unknown shortness Verified 10/01/17 18:13 of breath, lightheadedness morphine AdvReac Unknown Vomiting Verified 06/27/19 16:11 sulfamethoxazole AdvReac Unknown shortness Verified 06/27/19 16:11 of breath, lightheadedness trimethoprim AdvReac Unknown shortness Verified 06/27/19 16:11 of breath, lightheadedness Past Med/Surg History Medical History Angina at rest (Chronic) Arthritis (Acute) Asthma (Chronic) Atrial fibrillation with RVR (Acute) Atrial flutter (Chronic) Atrial flutter with rapid ventricular response (Acute) Atrial flutter, paroxysmal Benign essential hypertension (Chronic) Cellulitis (Acute) CHF (congestive heart failure) Diastolic heart failure (Chronic) Diverticulosis (Chronic) Elevated troponin (Acute) Hypertension (Chronic) Myocardial infarct, 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) Pacemaker (Chronic) Traumatic hematoma of right knee Unstable angina (Resolved) Surgical History History of colon resection (Resolved) History of heart artery stent (Chronic) Hx of cholecystectomy (Resolved) S/P cardiac pacemaker procedure Stented coronary artery (Resolved) Family History Other Family history non-contributory Social History Preferred Language: Togolese marital status: Current Living Situation: Spouse current occupational status: retired Feels Safe at Home: Yes Smoking Status: Never smoker Review of Systems A total of 10 systems reviewed and were otherwise negative Physical Exam Vital Signs Vital Signs - 24 hr 03/24/20 14:46 Temperature 36.4 C L Temperature Source Oral Pulse Rate 60 Pulse Rhythm Regular Pulse Strength Normal Respiratory Rate 20 Respiratory Effort / Characteristics Non-Labored Spontaneous Respiratory Depth Normal Blood Pressure 112/57 L Blood Pressure Mean 75 Pulse Oximetry 98 Oxygen Delivery Method Room Air Sepsis Recent Fever Within 48 Hours No Sepsis Action Taken by Nursing No Action Required CONSTITUTIONAL/VITAL SIGNS: Reviewed / noted above. GENERAL: Non-toxic in appearance. INTEGUMENTARY: Warm, dry, and Hannah. HEAD: Normocephalic. EYES: without scleral icterus or trauma. ENT/OROPHARYNX: clear and dry. LYMPHADENOPATHY/NECK: Is supple without lymphadenopathy or meningismus. RESPIRATORY: Lungs clear and equal. CARDIOVASCULAR: Regular rate and rhythm. GI/ABDOMEN: Soft and nontender. No organomegaly or pulsatile mass. No rebound or guarding. Normal bowel sounds. EXTREMITIES: Warm and well perfused. BACK: No CVA tenderness. NEUROLOGICAL: Intact without focal deficits. PSYCHIATRIC: normal affect. MUSCULOSKELETAL: Normally developed with good muscle tone. TRIAGE NURSING DOCUMENTATION REVIEWED. Course Administered Medications Sodium Chloride (Nss 1000ml) 1,000 mls @ 999 mls/hr IV .Q1H1M ONE Stop: 09/26/19 15:51 Last Admin: 09/26/19 14:58 Dose: 999 mls/hr Documented by: [id number] Medical Decision Making Differential Diagnosis Differential includes acute coronary syndrome, myocardial infarction, CVA, TIA, anemia, infection, pneumonia, UTI, pyelonephritis, poor nutrition, dehydration, electrolyte disturbance,hypoglycemia. Medical Records Attestation: I reviewed the patient's medical records. Home Medications Current Medication List: was personally reviewed by me Laboratory Data Attestation: I reviewed the patient's lab results. The patient's CBC was unremarkable. Her INR is 2.1. Sodium is 129. Potassium is 2.9. BUN is 116. Creatinine is 6.62. August 28 of this year her creatinine was 0.92. Imaging Data Attestation: I personally reviewed and interpreted this imaging study as follows: Radiologist's Impression: XR chest 1V portable CLINICAL HISTORY: weakness dyspnea COMPARISON STUDY: 06/27/2019 FINDINGS: Moderate stable cardiomegaly. Permanent unipolar cardiac pacemaker. Lungs are clear. Diaphragms are smooth. IMPRESSION: Moderate cardiomegaly. Otherwise negative study. ECG Data Attestation: I personally reviewed and interpreted this ECG as follows: Indication: + weakness Rate (beats per minute): 62 Rhythm: + other (Paced ventricular rhythm) ECG Intervals/blocks: + Prolonged QT; no Normal QT-c ECG ST segments: no ST elevation ECG Findings: no PVCs Blood Pressure Blood Pressure Findings: Normal blood pressure MDM Narrative The patient is an 89-year-old female who presents to the ED with a chief complaint of nausea, diarrhea for 1 week, headache and weakness. She also reports some nausea. The patient had some outpatient blood work that revealed a low sodium and potassium as well as a BUN of 116 and a creatinine of 6.62. Her baseline creatinine in August, 1 month ago was 0.92. The patient has no other specific complaints. She states that she feels that this is psychological and she feels like she is depressed. She denies any abdominal pains. She states that she has had decreased p.o. intake. She has no other complaints. Her vital signs are stable. Her laboratory studies reveal a unremarkable CBC. INR is 2.1. Sodium and potassium are slightly low. BUN is 116 and creatinine is 6.62. This is significantly elevated compared to 1 month ago when her creatinine was 0.92. The patient was treated with normal saline IV. She does have a C. difficile test pending. I did speak with the hospitalist. They will see the patient for further inpatient evaluation and care. A twelve-lead EKG showed a paced ventricular rhythm at a rate of 62 without acute injury or ectopy. Chest x-ray was negative for acute disease. Impression & Plan Acute renal failure, Acute dehydration, Acute hyponatremia, Acute hypokalemia Discharge Plan Visit Data Chief Complaint: Illness ED Provider: Tyrese Martínez Discharge Problem: Acute renal failure, Acute dehydration, Acute hyponatremia, Acute hypokalemia Patient Disposition: Admitted As Inpatient Forms Stand Alone Forms: My [facility] Prescriptions Prescriptions: No Action coenzyme Q10 10 mg capsule 200 mg PO QAM RF: 0 aspirin [Enteric Coated Aspirin] 81 mg tablet,delayed release (DR/EC) 81 mg PO QAM RF: 0 warfarin 6 mg tablet 6 mg PO DAILY RF: 0 ramipril 5 mg capsule 5 mg PO BID RF: 0 cholecalciferol (vitamin D3) 1,000 unit capsule 1,000 units PO QAM RF: 0 pantoprazole 40 mg tablet,delayed release (DR/EC) 40 mg PO QAM RF: 0 isosorbide dinitrate 20 mg tablet 20 mg PO BID RF: 0 vitamin B complex Tablet 1 tab PO QAM RF: 0 nitroglycerin 0.4 mg tablet, sublingual 0.4 mg Sublingual DIRECTED PRN (Reason: Chest Pain) RF: 0 oxycodone 5 mg tablet 2.5 mg PO Q6H PRN (Reason: pain) Qty: 15 RF: 0 polyethylene glycol 3350 [Miralax] 17 gram powder in packet 17 gm PO DAILY Qty: 14 RF: 0 magnesium oxide 400 mg magnesium capsule 400 mg PO BID RF: 0 acetaminophen-codeine [Tylenol-Codeine #3] 300-30 mg Tablet 1 tab PO Q6H PRN (Reason: Pain) RF: 0 acetaminophen [Tylenol Extra Strength] 500 mg Tablet 500 - 1,000 mg PO Q6H MDD 3 GM APAP/24 HRS PRN (Reason: Fever Or Pain) RF: 0 furosemide 40 mg Tablet 40 mg PO DAILY RF: 0 Referrals Referrals: [facility] [Primary Care Provider] - Discharge Problem: Acute renal failure Qualifiers: Acute renal failure type: unspecified Qualified Code(s): N17.9 - Acute kidney failure, unspecified
--- NOTE | 2019-09-26 15:39 | XRay Report ---
XR chest 1V portable CLINICAL HISTORY: weakness dyspnea COMPARISON STUDY: 06/27/2019 FINDINGS: Moderate stable cardiomegaly. Permanent unipolar cardiac pacemaker. Lungs are clear. Diaphr agms are smooth. IMPRESSION: Moderate cardiomegaly. Otherwise negative study. ACT 112: Negative or not required by law. The above report was generated using voice recognition software. It may contain grammatical, syntax or spelling errors. Electronically signed by: Preston Brink M.D. 09/26/2019 3:38 PM
--- NOTE | 2019-09-26 15:41 | History & Physical Report ---
Date of Service September 26, 2019 Assessment & Plan (1) Acute renal failure: - Creatinine 6.62 on admission, baseline ~0.9-1.0. - Likely prerenal related to dehydration in setting of diarrhea x 1 week. - Renal US pending to rule out obstruction. - U/a, urine sodium and urine creatinine are all pending collection. - Received 1L via NS; NS at 80 cc/hr for gentle IV fluid hydration. - Consult nephrology for input. - Hold nephrotoxic agents, including home Lasix and Ramipril. (2) Acute hyponatremia: - Likely hypovolemic hyponatremia in setting of dehydration. - Na level 129 -- expect improvement with IV fluid hydration. - Urine sodium, urine creatinine & u/a pending. - Repeat BMP in the morning. (3) Metabolic acidosis: - Likely related to bicarb losses in setting of diarrhea. - Start NS + NaHCO3 75 mEq at 80 cc/hr. - Repeat BMP in the morning. - Nephro consulted for input. (4) Acute dehydration: - In setting of diarrhea, see above. (5) Diarrhea: - C. diff negative on 09/24; will order stool cultures. - Evaluate for diarrhea -- consider imodium if cultures are negative. (6) Acute hypokalemia: - K level 2.9 -- ordered KCl 40 mEq PO and added KCl 40 mEq to IV fluids. - Repeat K level in the morning; also added Mag level. (7) Chronic diastolic HF (heart failure): - Echo in 2016 showed EF 55-60%, mild AR, mod , mild MR and mild TR. - Currently appears volume depleted; IV fluids at 80 cc/hr. - Monitor I/Os and daily weights. - Continue Imdur as prescribed; holding home Lasix and ACEI due to ARF. (8) Atrial flutter, paroxysmal: - S/p AV junction ablation in Jun 2015; also had single chamber ventricular pacemaker placed. - Continue Warfarin 6 mg daily -- INR was therapeutic today, will monitor daily. - Not currently on rate controlling agents. (9) Benign essential hypertension: - Continue Imdur as prescribed. - Hold Ramipril due to ARF. (10) CAD (coronary artery disease): - Has had a total of 5 coronary stents, LAD on 2 occasions with most recently in 2009. - Continue ASA 81 mg daily and Imdur as prescribed; holding home ACEI due to ARF, not currently on statin or BB. (11) Microcytic anemia: - Will order iron studies in the AM for evaluation. - Baseline ~9-10. - Monitor CBC daily. (12) GERD (gastroesophageal reflux disease): - PPI daily. DVT ppx: SCDs and home Coumadin. Dispo: Med/surg with tele for acute renal failure History of Present Illness Chief Complaint: Depression Primary Care Provider: [facility] Mrs. Landaverde is an 89 year old female with past medical history of CHF, HTN, A. flutter/fib, Arthritis, CAD who presented with reports of depression. Patient is slightly confused, states she was sent to the hospital for testing d/t depression. When asked about why she is depressed, she reports her son and are fighting. She does c/o diarrhea over the last week, 2-3 times in the morning and afternoon. Has had loss of appetite due to increased diarrhea. Denies chest pain, SOB, increased LE edema, N/V, abd pain, dysuria or hematuria. ER course: Patient was referred by the [facility] for elevated Creatinine level. Creatinine level is 6.62, baseline ~0.9-1.0, with associated anion gap metabolic acidosis level. Will need admitted for IV fluid hydration and nephrology consult. Allergies Allergy/AdvReac Type Severity Reaction Status Date / Time shellfish derived Allergy Severe Swelling Verified 09/26/19 16:03 of Lip/Tongue/Throat tetracycline Allergy Unknown Canker Verified 09/26/19 16:03 Sore(s) Bactrim AdvReac Unknown shortness Verified 10/01/17 18:13 of breath, lightheadedness morphine AdvReac Unknown Vomiting Verified 09/26/19 16:03 sulfamethoxazole AdvReac Unknown shortness Verified 09/26/19 16:03 of breath, lightheadedness trimethoprim AdvReac Unknown shortness Verified 09/26/19 16:03 of breath, lightheadedness Home Medications Home Medications Medication Instructions Recorded Confirmed Type aspirin 81 mg tablet,delayed 81 mg PO QAM 03/03/18 09/26/19 History release cholecalciferol (vitamin D3) 25 1,000 units PO QAM 03/03/18 09/26/19 History mcg (1,000 unit) capsule coenzyme Q10 10 mg capsule 200 mg PO QAM 03/03/18 09/26/19 History ramipril 5 mg capsule 5 mg PO BID 03/03/18 09/26/19 History warfarin 6 mg tablet 6 mg PO HS tab 03/03/18 09/26/19 History isosorbide dinitrate 20 mg PO BID 09/14/18 09/26/19 History nitroglycerin 0.4 mg SUBLINGUAL DIRECTED PRN 09/14/18 09/26/19 History pantoprazole 40 mg PO QAM 09/14/18 09/26/19 History vitamin B complex 1 tab PO QAM 09/14/18 09/26/19 History magnesium oxide 400 mg PO BID 04/17/19 09/26/19 History oxycodone 2.5 mg PO Q6H PRN #15 tab 05/03/19 09/26/19 Rx furosemide 40 mg PO SUTUTHSA 06/27/19 09/26/19 History acetaminophen [Tylenol] 650 mg PO QID PRN 09/26/19 09/26/19 History furosemide 80 mg PO MOWEFR 09/26/19 09/26/19 History polyethylene glycol 3350 [Miralax] 17 gm PO QAM 09/26/19 09/26/19 History spironolactone 12.5 mg PO QAM 09/26/19 09/26/19 History Past Med/Surg History Medical History (Updated 09/26/19 @ 16:01 by Carmella Pratt PA-C) Angina at rest (Chronic) Arthritis (Acute) Asthma (Chronic) Atrial fibrillation with RVR (Acute) Atrial flutter (Chronic) Atrial flutter with rapid ventricular response (Acute) Atrial flutter, paroxysmal Benign essential hypertension (Chronic) Cellulitis (Acute) CHF (congestive heart failure) Diastolic heart failure (Chronic) Diverticulosis (Chronic) Elevated troponin (Acute) GERD (gastroesophageal reflux disease) Hypertension (Chronic) Myocardial infarct, 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) Pacemaker (Chronic) Traumatic hematoma of right knee Unstable angina (Resolved) Surgical History History of colon resection (Resolved) History of heart artery stent (Chronic) Hx of cholecystectomy (Resolved) S/P cardiac pacemaker procedure Stented coronary artery (Resolved) Family History Other Family history non-contributory Social History Preferred Language: Jamaican Communication Ability: Effective Leadlighter Required: No Beliefs That Will Affect Care: None marital status: Current Living Situation: Longterm current occupational status: retired Other Information That Helps Us Care for You: No Feels Safe at Home: Yes Safety Concerns: Feels Safe At This Time Smoking Status: Never smoker Do You Dip or Chew Tobacco: No ; Second Hand Exposure: No ; Tobacco Cessation Education Requested by Patient: No Hx Alcohol Use: No Hx Substance Use: Yes substance use type: opiates and prescription drug Review of Systems Review of Systems: All systems reviewed & are unremarkable except as noted in HPI & below Constitutional: + fatigue, + weakness and + anorexia; no fever and no chills Respiratory: no cough, no dyspnea and no dyspnea on exertion Cardiovascular: no chest pain, no palpitations and no edema Gastrointestinal: + nausea and + diarrhea/loose stools; no abdominal pain, no vomiting and no constipation Genitourinary: no dysuria, no difficulty urinating, no urinary frequency and no hematuria Musculoskeletal: no back pain and no joint pain Integumentary: no non-healing lesions Physical Exam Physical Exam: General: Resting comfortably HEENT: NC/AT; PERRLA with EOMI; [place] conjunctiva, MMM. No erythema of posterior pharynx Neck: Supple and nontender Cardiac: RRR Lungs: CTA bilaterally Abdomen: Bowel normoactive X 4; Nontender to palpation Extremities: Warm. Wraps noted on bilat calves, pt. reports d/t edema. No edema noted on exam. Neuro: No focal weakness Skin: No rash Results & Data Vital Signs (Past 12 Hours) Vital Signs Temp Pulse Resp BP Pulse Ox 09/26/19 14:46 36.4 C L 60 20 112/57 L 98 Code Status & VTE Plan VTE Prophylaxis Plan VTE Prophylaxis will be ordered: Yes Supervising Physician Co-Signing Physician Notes Attending Attestation & Admission Note: Pt seen/examined, chart reviewed, care plan d/w PARRIS Pratt. I agree w/ the ya components of her admission documentation. 89yo female with h/o CAD, chronic diastolic CHF, pacemaker, prior AK, and a.fib/flutter on coumadin - presenting with confusion, severe dehydration, poor appetite, diarrhea, weight loss, and simply not feeling well. Upon presentation she was altered and unable to give good history. Labs showed severe acute renal failure with Cr >6. No recent fever, chills, cough, or abd pain per the patient. PMH, PSH, allergies, meds, sochx, famhx, ros - reviewed Vitals - afebrile, BP wnl (low-normal at presentation however) gen - NAD, confused, asking to leave mouth - severely dry MM heart - RRR, s1 s2, 2/6 systolic murmur LSB lungs - CTA b/l abd - soft, NT, ND, BS+, no HSM; surgical scars present ext - wraps on both legs; these were removed; varicose veins b/l; no edema; pulses 1+ b/l labs - K 2.9 Cr 6.6 BUN > 100 microcytosis noted on CBC HCO3 18 cxr - wnl ekg - pending A/P: 1. severe acute renal failure - suspect prerenal/ATN from diarrhea, low-normal BP, BEN inhibitor use, diuretic use. Holding BEN, holding diuretic. Fluids, serial BMPs. Place briggs. Renal u/s - r/o obstruction. Send u/a w/ micro - check for casts. Calculate FeNa. If no improvement in next 24-36 hours then nephrology consultation. 2. hypokalemia - check mag; 2nd diarrhea. Replete, repeat BMP am. 3. microcytosis - check Fe studies. 4. diarrhea - etiology? Check stool cx. C diff recently negative. 5. Mild metabolic acidosis - agree with sodium bicarb infusion. BMP in am. Likely combination of uremia with nonanion gap met acidosis from diarrhea. 6. metabolic encephalopathy - likely due to uremia/ARF. Supportive care. other plans per Ms ThomasOgmarcussriram. Khari Cardenas MD PG Care Time/CCT Total # of Minutes Spent Total Time Spent with Patient: Total time spent is greater than 50% in coordination of care (as documented) at patient's floor/unit and/or counseling patient: Coding Level of Care Code 25493 Initial Inpt Care Lvl 3 Diagnoses Acute renal failure N17.9 Acute renal failure type: unspecified Acute hyponatremia E87.1 Metabolic acidosis E87.2 Acute dehydration E86.0 Diarrhea R19.7 Acute hypokalemia E87.6 Chronic diastolic HF (heart failure) I50.32 Atrial flutter, paroxysmal I48.92 Benign essential hypertension I10 CAD (coronary artery disease) I25.10 Microcytic anemia D50.9 GERD (gastroesophageal reflux disease) K21.9 (1) Acute renal failure Acute renal failure type: unspecified Qualified Code(s): N17.9 - Acute kidney failure, unspecified
[2019-09-26] MEDS ORDERED: INFLUENZA VACCINE HIGH DOSE 65+ 0.5 ML SYR IM ONE (15:51)
[2019-09-26] MEDS ORDERED: INFLUENZA ADMINISTRATION CHARGE ONE (15:51)
[2019-09-26] MEDS ORDERED: POLYETHYLENE (MIRALAX) 17 GM PACK PO PRN (17:14)
[2019-09-26] MEDS ORDERED: OXYCODONE HCL IR 5 MG TAB (IMMEDIATE RELEASE) PO PRN (17:23)
[2019-09-26] MEDS ORDERED: POTASSIUM CHLORIDE 20 MEQ TABCR PO ONE (17:45)
[2019-09-26 18:10] LABS: Appearance Urine Clear (Clear); Bilirubin Urine Negative (Negative); Blood Urine Negative (Negative); Color Urine Yellow; Glucose Urine UA Negative (Negative); Ketones Urine Negative (Negative); Leukocyte Esterase Urine Negative (Negative); Nitrite Urine Negative (Negative); Protein Urine Negative (Negative); Urobilinogen Urine Negative (Negative)
[2019-09-26] MEDS: [UNRECOGNIZED DRUG - OTHER] IV SCH (18:48)
[2019-09-26] MEDS: SODIUM BICARBONATE IV SCH (18:48)
[2019-09-26] MEDS: POTASSIUM CHLORIDE IV SCH (18:48)
[2019-09-26] MEDS: WARFARIN SOD 3 MG TAB PO SCH (18:48)
--- NOTE | 2019-09-26 18:53 | Ultrasound Report ---
US renal/blad retro comp HISTORY: 89 years-old Female acute renal failure acute renal failure COMPARISON: CT abdomen and pelvis 05/03/2019 TECHNIQUE: Multiple real-time sonographic images of the kidneys and urinary bladder were obtained ass essing grayscale appearance and color flow FINDINGS: Right kidney measures 10.8 x 5.6 x 6.0 cm demonstrates diffuse cortical thinning. No renal calculi, h ydronephrosis or suspicious mass lesion of the right kidney. The left kidney measures 10.0 x 5.5 x 5.3 cm and demonstrates diffuse cortical thinning. No left-side d renal calculi or hydronephrosis. There are a few left-sided renal cysts redemonstrated measuring up to 1.1 cm. Study is limited secondary to body habitus and lack of cooperation. Cystic lesions of the spleen are redemonstrated measuring up to 5.0 x 4.0 x 4.3 cm, unchanged from comparison. Decompressed urinary bl adder with Nichole catheter. IMPRESSION: 1. No renal calculi or obstructive uropathy. 2. Diffuse cortical thinning of the kidneys. 3. Nichole catheter with decompressed urinary bladder. 4. Cystic lesions of the spleen redemonstrated, likely benign. ACT 112: Negative or not required by law. The above report was generated using voice recognition software. It may contain grammatical, syntax o r spelling errors. Electronically signed by: Mahendra Reed M.D. 09/26/2019 6:52 PM
[2019-09-26] MEDS ORDERED: Nursing to Pharmacy Communication ONE (20:02)
[2019-09-26] MEDS ORDERED: POTASSIUM CHLORIDE PWD 20 MEQ PACK PO SCH (20:30)
[2019-09-27 06:06] LABS: Hematocrit (blood only) 33.4 % (37-47); Hemoglobin 10.4 g/dL (12.0-16.0); Mean Corpuscular Hemoglobin 21.4 pg (25-34); Mean Corpuscular Hgb Conc 31.1 g/dL (32-36); Mean Corpuscular Volume 68.6 fL (80-100); Mean Platelet Volume 9.6 fL (7.4-10.4); Platelet Count 209 K/uL (130-400); RDW Coefficient of Variation 19.6 % (11.5-14.5); RDW Standard Deviation 48.9 fL (36.4-46.3); Red Blood Count 4.87 M/uL (4.2-5.4); White Blood Count 7.44 K/uL (4.8-10.8)
[2019-09-27 06:22] LABS: INR 1.6 (0.9-1.1); Prothrombin Time 16.5 Seconds (9.0-12.0)
[2019-09-27 06:39] LABS: BUN Creatinine Ratio 23.5 (10-20); Calcium 7.8 mg/dl (8.5-10.1); Creatinine Clr Calc Pharmacy 9.3 ml/min; Est GFR (African American) 9.7; Est GFR (Non-African American) 8.4; Magnesium 1.6 mg/dl (1.8-2.4); Potassium 3.3 mmol/L (3.5-5.1)
[2019-09-27 06:43] LABS: Ferritin 105.3 ng/ml (8-388)
[2019-09-27] MEDS: [UNRECOGNIZED DRUG - OTHER] IV SCH (07:38)
[2019-09-27] MEDS: POTASSIUM CHLORIDE IV SCH ×3 (07:38→23:32)
[2019-09-27] MEDS: SODIUM BICARBONATE IV SCH ×3 (07:38→23:32)
[2019-09-27] MEDS: ASPIRIN 81 MG ECTAB PO SCH (09:07)
[2019-09-27] MEDS: PANTOprazole 40 MG TAB PO SCH (09:07)
[2019-09-27] MEDS: ISOSORBIDE DINITRATE 20 MG TAB PO SCH ×2 (09:08→16:58)
[2019-09-27] MEDS: MAGNESIUM SULFATE / D5W 1 GM/100 ML BAG IV SCH ×2 (09:13→10:29)
--- NOTE | 2019-09-27 09:41 | Nephrology Consultation ---
Date of Consultation September 27, 2019 Assessment & Plan (1) Acute renal failure: -- PETER due to dehydration in the setting of BEN inhibitor and continued diuretic use. Benign urine sediment. Renal US negative for obstruction -- Kidney function improving w/ IV hydration -- Will change IVF to 0.45NS w/ 50 mEq NaHCO3 and 20 mEq KCl at 75 cc/hr -- Repeat PRP in am (2) Benign essential hypertension: -- Hold Ramipril, Furosemide and Spironolactone -- BP remains acceptable at this time (3) Metabolic acidosis: -- NaHCO3 added to IVF. Will monitor level History of Present Illness Reason for Consultation: PETER Attending Physician: Yvette Hidalgo DO History of Present Illness Mrs. King is an 89 year old white female who is seen at the request of Carmella Snell PA-c for evaluation of PETER. Mrs. King resides at the [facility] at [facility]. She can provide only limited history and repeatedly requests to be discharged to home. Review of EMR records reveals a h/o HTN, atrial fibrillation, diastolic CHF, pacemaker insertion, asthma and GERD. Mrs. King has been taking Ramipril, Furosemide and Spironolactone as part of her medical regimen. She has no previous h/o CKD and her baseline Cr was 0.9 08/24. Over the last 2 weeks Mrs. King has suffered from diarrhea and poor oral hydration. She presented to the ED last night for evaluation and was found to be clinically dehydrated w/ PETER. BUN/Cr on admission were 116/6.6. Urine sediment was acellular. FeNa 1.1%. Renal US was negative for obstruction. BUN/Cr have improved to 103/4.3 following IV hydration. She is nonoliguric. Stool testing for C. Difficile toxin and O&P is pending. Allergies Allergy/AdvReac Type Severity Reaction Status Date / Time shellfish derived Allergy Severe Swelling Verified 09/26/19 16:03 of Lip/Tongue/Throat tetracycline Allergy Unknown Canker Verified 09/26/19 16:03 Sore(s) Bactrim AdvReac Unknown shortness Verified 10/01/17 18:13 of breath, lightheadedness morphine AdvReac Unknown Vomiting Verified 09/26/19 16:03 sulfamethoxazole AdvReac Unknown shortness Verified 09/26/19 16:03 of breath, lightheadedness trimethoprim AdvReac Unknown shortness Verified 09/26/19 16:03 of breath, lightheadedness Home Medications Home Medications Medication Instructions Recorded Confirmed Type aspirin 81 mg tablet,delayed 81 mg PO QAM 03/03/18 09/26/19 History release cholecalciferol (vitamin D3) 25 1,000 units PO QAM 03/03/18 09/26/19 History mcg (1,000 unit) capsule coenzyme Q10 10 mg capsule 200 mg PO QAM 03/03/18 09/26/19 History ramipril 5 mg capsule 5 mg PO BID 03/03/18 09/26/19 History warfarin 6 mg tablet 6 mg PO HS tab 03/03/18 09/26/19 History isosorbide dinitrate 20 mg PO BID 09/14/18 09/26/19 History nitroglycerin 0.4 mg SUBLINGUAL DIRECTED PRN 09/14/18 09/26/19 History pantoprazole 40 mg PO QAM 09/14/18 09/26/19 History vitamin B complex 1 tab PO QAM 09/14/18 09/26/19 History magnesium oxide 400 mg PO BID 04/17/19 09/26/19 History oxycodone 2.5 mg PO Q6H PRN #15 tab 05/03/19 09/26/19 Rx furosemide 40 mg PO SUTUTHSA 06/27/19 09/26/19 History acetaminophen [Tylenol] 650 mg PO QID PRN 09/26/19 09/26/19 History furosemide 80 mg PO MOWEFR 09/26/19 09/26/19 History polyethylene glycol 3350 [Miralax] 17 gm PO QAM 09/26/19 09/26/19 History spironolactone 12.5 mg PO QAM 09/26/19 09/26/19 History Patient History Medical History Angina at rest (Chronic) Arthritis (Acute) Asthma (Chronic) Atrial fibrillation with RVR (Acute) Atrial flutter (Chronic) Atrial flutter with rapid ventricular response (Acute) Atrial flutter, paroxysmal Benign essential hypertension (Chronic) Cellulitis (Acute) CHF (congestive heart failure) Diastolic heart failure (Chronic) Diverticulosis (Chronic) Elevated troponin (Acute) GERD (gastroesophageal reflux disease) Hypertension (Chronic) Myocardial infarct, 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) Pacemaker (Chronic) Traumatic hematoma of right knee Unstable angina (Resolved) Surgical History History of colon resection (Resolved) History of heart artery stent (Chronic) Hx of cholecystectomy (Resolved) S/P cardiac pacemaker procedure Stented coronary artery (Resolved) Family History Other Family history non-contributory Social History Preferred Language: Serbian Communication Ability: Effective Control Officer Required: No Beliefs That Will Affect Care: None marital status: Current Living Situation: [facility] current occupational status: retired Other Information That Helps Us Care for You: No Feels Safe at Home: Yes Safety Concerns: Feels Safe At This Time Smoking Status: Never smoker Do You Dip or Chew Tobacco: No ; Second Hand Exposure: No ; Tobacco Cessation Education Requested by Patient: No Hx Alcohol Use: No Hx Substance Use: Yes substance use type: opiates and prescription drug Review of Systems Constitutional: + weakness; no fever Eyes: no problem reported Ear, Nose, Mouth, Throat: no problem reported Respiratory: no cough and no dyspnea Cardiovascular: no chest pain, no palpitations and no edema Gastrointestinal: + diarrhea/loose stools; no abdominal pain and no vomiting Genitourinary: no dysuria and no hematuria Musculoskeletal: no back pain Integumentary: no rash Neurologic: no falls, no dizziness and no confusion Physical Exam Constitutional: + thin and + frail appearing Eyes: PERRL, conjunctivae normal, anicteric sclerae ENMT: Mouth: + dry oral mucous membranes hard of hearing Neck: trachea midline, no thyromegaly Respiratory: normal respiratory effort, lungs clear to auscultation Cardiovascular: RRR, no murmur, no edema Gastrointestinal (Abdomen): normal bowel sounds, soft, nontender, no hepatosplenomegaly Musculoskeletal: Extremities: no cyanosis Skin: no rashes, warm and dry + turgor decreased Neurologic: awake; not confused Results & Data Vital Signs (Past 12 Hours) Vital Signs Temp Pulse Pulse Resp BP Pulse Ox 09/27/19 07:25 60 09/27/19 07:23 36.7 C 60 20 119/57 L 98 09/27/19 04:43 36.6 C 60 20 141/69 H 96 09/26/19 23:04 36.7 C 60 20 127/68 97 09/26/19 22:20 60 Laboratory Results Laboratory Results WBC 7.44 K/uL (4.8-10.8) 09/27/19 05:46 RBC 4.87 M/uL (4.2-5.4) 09/27/19 05:46 Hgb 10.4 g/dL (12.0-16.0) L 09/27/19 05:46 Hct 33.4 % (37-47) L 09/27/19 05:46 MCV 68.6 fL (80-100) L 09/27/19 05:46 MCH 21.4 pg (25-34) L 09/27/19 05:46 MCHC 31.1 g/dL (32-36) L 09/27/19 05:46 RDW Std Deviation 48.9 fL (36.4-46.3) H 09/27/19 05:46 RDW Coeff of Concepcion 19.6 % (11.5-14.5) H 09/27/19 05:46 Plt Count 209 K/uL (130-400) 09/27/19 05:46 MPV 9.6 fL (7.4-10.4) 09/27/19 05:46 PT 16.5 Seconds (9.0-12.0) H 09/27/19 05:46 INR 1.6 (0.9-1.1) H 09/27/19 05:46 Sodium 135 mmol/L (136-145) L 09/27/19 05:46 Potassium 3.3 mmol/L (3.5-5.1) L 09/27/19 05:46 Chloride 110 mmol/L (98-107) H 09/27/19 05:46 Carbon Dioxide 19 mmol/L (21-32) L 09/27/19 05:46 Anion Gap 6.0 (3-11) 09/27/19 05:46 BUN 103 mg/dl (7-18) H 09/27/19 05:46 Creatinine 4.37 mg/dl (0.6-1.2) H D 09/27/19 05:46 Est Cr Clr Drug Dosing 9.3 ml/min 09/27/19 05:46 Est GFR ( Amer) 9.7 09/27/19 05:46 Est GFR (Non-Af Amer) 8.4 09/27/19 05:46 BUN/Creatinine Ratio 23.5 (10-20) H 09/27/19 05:46 Glucose 99 mg/dl (70-99) 09/27/19 05:46 Calcium 7.8 mg/dl (8.5-10.1) L 09/27/19 05:46 Magnesium 1.6 mg/dl (1.8-2.4) L 09/27/19 05:46 Iron 65 mcg/dl (35-150) 09/27/19 05:46 TIBC 280 mcg/dl (250-450) 09/27/19 05:46 Transferrin 227 mg/dl (200-360) 09/27/19 05:46 Transferrin % Sat 20 % (15-50) 09/27/19 05:46 Ferritin 105.3 ng/ml (8-388) 09/27/19 05:46 Urine Color Yellow 09/26/19 17:45 Urine Appearance Clear (Clear) 09/26/19 17:45 Urine pH 5.0 (4.5-7.5) 09/26/19 17:45 Ur Specific [place] 1.020 (1.000-1.030) 09/26/19 17:45 Urine Protein Negative (Negative) 09/26/19 17:45 Urine Glucose (UA) Negative (Negative) 09/26/19 17:45 Urine Ketones Negative (Negative) 09/26/19 17:45 Urine Blood Negative (Negative) 09/26/19 17:45 Urine Nitrite Negative (Negative) 09/26/19 17:45 Urine Bilirubin Negative (Negative) 09/26/19 17:45 Urine Urobilinogen Negative (Negative) 09/26/19 17:45 Ur Leukocyte Esterase Negative (Negative) 09/26/19 17:45 Ur Random Creatinine 109.0 mg/dl 09/26/19 17:45 Ur Random Sodium 26 mmol/L 09/26/19 17:45 Stl C. diff Tox B Gene Negative Cdiff Gene (Neg) 09/27/19 02:00 PG Care Time/CCT Total # of Minutes Spent Total Time Spent with Patient: Total time spent is greater than 50% in coordination of care (as documented) at patient's floor/unit and/or counseling patient: Coding Level of Care Code 68021 Inpt Consult Level 5 Diagnoses Acute renal failure N17.9 Acute renal failure type: unspecified Benign essential hypertension I10 Metabolic acidosis E87.2 (1) Acute renal failure Acute renal failure type: unspecified Qualified Code(s): N17.9 - Acute kidney failure, unspecified
[2019-09-27] MEDS: [UNRECOGNIZED DRUG - OTHER] IV SCH ×2 (10:28→23:32)
--- NOTE | 2019-09-27 13:22 | Family Medicine Progress Note ---
Date of Service September 27, 2019 Assessment & Plan (1) Diarrhea: Ms King is an 89 year old female with history of CHF, HTN, Afib/Aflutter, CAD admitted with acute renal failure and diarrhea. (1) Acute renal failure: improving Baseline Creatinine 0.9-1.0; on admission Cr 6.62-->4.37 Suspect this is a prerenal PETER. Her renal function seems to be recovering nicely with fluids. Renal ultrasound shows some cortical thinning, but no evidence of obstruction. Urine studies are bland. IVFs: 0.45%NS + 50mEq NaHCO3 + 20mEq KCL @ 75/hr holding nephrotoxic agents--lasix, spironolactone, and ramipril Appreciate nephrology recommendations (2) Acute hyponatremia: improving Due to hypovolemia. Na on admission 129-->135 today Follow Na level tomorrow (3) Metabolic acidosis: Related to bicarb losses in setting of diarrhea. - Continue IVFs as above - follow BMP (4) Acute dehydration: In setting of diarrhea, see above. (5) Diarrhea: C. diff negative on 09/24 and again on 09/26; stool cultures pending. Consider imodium if cultures are negative. (6) Acute hypokalemia: improving K level 2.9 -->3.3 Potassium in IVFs, and repleting orally as well. (7) Hypomagnesemia Mg 1.6 today, given 2g Mg IV Repeat Mg in the AM (8) Chronic diastolic HF (heart failure): Echo in 2017 showed EF 55-60%, mild AR, mod , mild MR and mild TR. - Currently appears volume depleted; IV fluids at 75 cc/hr. - Monitor I/Os and daily weights. - Continue Imdur as prescribed; holding home Lasix, spironolactone, and ACEI due to ARF. (9) Atrial flutter, paroxysmal: S/p AV junction ablation in Jun 2015; also had single chamber ventricular pacemaker placed. - Given Warfarin 3 mg yesterday (decreased dose as she has significantly supratherapeutic INR earlier this week) - INR was subtherapeutic today, but plan to keep coumadin dose the same for tonight. - home coumadin is 6mg daily. - Not currently on rate controlling agents. (10) Benign essential hypertension: - Continue Imdur as prescribed. - Hold Ramipril due to ARF. (11) CAD (coronary artery disease): - Has had a total of 5 coronary stents, LAD on 2 occasions with most recently in 2009. - Continue ASA 81 mg daily and Imdur as prescribed; holding home ACEI due to A RF, not currently on statin or BB. (12) Microcytic anemia: - hgb 10.4, baseline ~9-10 - iron studies unremarkable. (13) GERD (gastroesophageal reflux disease): - PPI daily. FEN: DVT ppx: SCDs and home Coumadin. CODE status: FULL Dispo: Med/surg with tele for acute renal failure (2) GERD (gastroesophageal reflux disease): (3) Microcytic anemia: (4) CAD (coronary artery disease): (5) Chronic diastolic HF (heart failure): (6) Acute renal failure: (7) Acute dehydration: (8) Acute hyponatremia: (9) Acute hypokalemia: (10) Benign essential hypertension: (11) Atrial flutter: Admission and Anticipated Discharge Date Admission Date: September 26, 2019 Tarah Diaz is an 89 year old female admitted for acute renal failure. Resident at the [facility]. Overnight events reviewed. She reports that she has continued to have loose stools--about 3 episodes since 7am. Denies blood in the stool. Denies abdominal pain, nausea or vomiting. Reports that she is feeling quite fatigued due to the loose stools. Did work with PT earlier today. Also spoke with nursing. Patient is incontinent of stool and urine. Stools have a "fishy" odor. Review of Systems Review of Systems: All systems reviewed & are unremarkable except as noted in HPI & below Physical Exam Constitutional: WD/WN, vitals as above no acute distress Eyes: PERRL, conjunctivae normal, anicteric sclerae ENMT: external ear and nose normal, oropharynx normal Neck: normal visual inspection Respiratory: normal respiratory effort, lungs clear to auscultation no respiratory distress Cardiovascular: Rate/Rhythm: regular rate and regular rhythm Extremities: no edema Gastrointestinal (Abdomen): normal bowel sounds, soft, nontender, no hepatosplenomegaly Skin: no rashes, warm and dry Neurologic: PERRL, EOMI, accommodation nl, no face palsy, no dysarthria Psychiatric: A+Ox3, euthymic affect Genitourinary: Nichole draining alex colored urine Results & Data ([facility]) Vital Signs (Past 12 Hours) Vital Signs Temp Pulse Pulse Resp BP Pulse Ox 09/27/19 11:18 36.8 C 61 20 113/68 97 09/27/19 07:25 60 09/27/19 07:23 36.7 C 60 20 119/57 L 98 09/27/19 04:43 36.6 C 60 20 141/69 H 96 PG Care Time/CCT Total # of Minutes Spent Total Time Spent with Patient: Total time spent is greater than 50% in coordinat ion of care (as documented) at patient's floor/unit and/or counseling patient: Coding Level of Care Code 37747 Subseq Hosp Care Lvl 3 Diagnoses Diarrhea R19.7 GERD (gastroesophageal reflux disease) K21.9 Microcytic anemia D50.9 CAD (coronary artery disease) I25.10 Chronic diastolic HF (heart failure) I50.32 Acute renal failure N17.9 Acute renal failure type: unspecified Acute dehydration E86.0 Acute hyponatremia E87.1 Acute hypokalemia E87.6 Benign essential hypertension I10 Atrial flutter I48.92 (1) Acute renal failure Acute renal failure type: unspecified Qualified Code(s): N17.9 - Acute kidney failure, unspecified
--- NOTE | 2019-09-27 14:03 | Electrocardiogram Report ---
Test Reason : Blood Pressure : / mmHG Vent. Rate : 062 BPM Atrial Rate : 070 BPM P-R Int : 000 ms QRS Dur : 196 ms QT Int : 516 ms P-R-T Axes : 069 -80 092 degrees QTc Int : 523 ms Poor data quality, interpretation may be adversely affected Sinus rhythm with complete heart block and Ventricular-paced rhythm Abnormal ECG When compared with ECG of 27-JUN-2019 14:46, No significant change was found Confirmed by Tom Mendieta ([id number]) on 09/27/2019 2:03:15 PM Referred By: REFERRED SELF Confirmed By:Darin Mendieta
[2019-09-27] MEDS: WARFARIN SOD 3 MG TAB PO SCH (15:42)
[2019-09-28] MEDS: ACETAMINOPHEN 325 MG TAB PO PRN (03:10)
[2019-09-28] MEDS: ISOSORBIDE DINITRATE 20 MG TAB PO SCH ×2 (06:09→16:36)
[2019-09-28 06:12] LABS: Basophils # (auto) 0.03 K/uL (0-0.2); Basophils % (auto) 0.4 %; Eosinophils # (auto) 0.17 K/uL (0-0.5); Eosinophils % (auto) 2.5 %; Hematocrit (blood only) 31.6 % (37-47); Hemoglobin 9.7 g/dL (12.0-16.0); Immature Granulocytes # (auto) 0.01 K/uL (0.00-0.02); Immature Granulocytes % (auto) 0.1 %; Lymphocytes # (auto) 0.96 K/uL (1.2-3.4); Lymphocytes % (auto) 14.1 %; Mean Corpuscular Hemoglobin 21.7 pg (25-34); Mean Corpuscular Hgb Conc 30.7 g/dL (32-36); Mean Corpuscular Volume 70.5 fL (80-100); Mean Platelet Volume 9.8 fL (7.4-10.4); Monocytes % (auto) 11.7 %; Neutrophils # (auto) 4.86 K/uL (1.4-6.5); Neutrophils % (auto) 71.2 %; Platelet Count 202 K/uL (130-400); RDW Coefficient of Variation 19.7 % (11.5-14.5); RDW Standard Deviation 51.1 fL (36.4-46.3); Red Blood Count 4.48 M/uL (4.2-5.4); White Blood Count 6.83 K/uL (4.8-10.8)
[2019-09-28 06:20] LABS: INR 1.6 (0.9-1.1); Prothrombin Time 16.6 Seconds (9.0-12.0)
[2019-09-28 06:41] LABS: Hypochromasia Present; Microcytosis Present; Ovalocytes 1+
[2019-09-28 06:49] LABS: BUN Creatinine Ratio 33.6 (10-20); Calcium 8.2 mg/dl (8.5-10.1); Creatinine Clr Calc Pharmacy 19.8 ml/min; Est GFR (African American) 23.9; Est GFR (Non-African American) 20.6; Magnesium 1.9 mg/dl (1.8-2.4); Potassium 3.4 mmol/L (3.5-5.1)
[2019-09-28] MEDS: ASPIRIN 81 MG ECTAB PO SCH (07:55)
[2019-09-28] MEDS: PANTOprazole 40 MG TAB PO SCH (07:55)
--- NOTE | 2019-09-28 10:52 | Nephrology Progress Note ---
Date of Service September 28, 2019 Assessment & Plan (1) Acute renal failure: -- PETER due to dehydration in the setting of BEN inhibitor and continued diuretic use. Benign urine sediment. Renal US negative for obstruction -- Kidney function improving w/ IV hydration. Creatinine has improved from 4.3 to 2.0 -- Continue IVF to 0.45NS w/ 50 mEq NaHCO3 and 20 mEq KCl at 75 cc/hr -- Repeat PRP in am (2) Benign essential hypertension: -- Hold Ramipril, Furosemide and Spironolactone -- BP remains acceptable at this time (3) Metabolic acidosis: -- NaHCO3 added to IVF. Will monitor level Subjective Ms. King was seen & examined in her hospital room this morning. She continues to c/o diarrhea. She is tolerating IV hydration without dyspnea. Review of Systems Constitutional: + weakness; no fever Eyes: no worsening vision and no problem reported Ear, Nose, Mouth, Throat: no problem reported Respiratory: no cough and no dyspnea Cardiovascular: no chest pain, no palpitations and no edema Gastrointestinal: + diarrhea/loose stools; no abdominal pain and no vomiting Genitourinary: no dysuria and no hematuria Musculoskeletal: no back pain Integumentary: no rash Neurologic: no falls, no dizziness and no confusion Physical Exam Constitutional: + thin and + frail appearing Eyes: PERRL, conjunctivae normal, anicteric sclerae ENMT: Mouth: + dry oral mucous membranes Neck: trachea midline, no thyromegaly Respiratory: normal respiratory effort, lungs clear to auscultation Cardiovascular: RRR, no murmur, no edema Gastrointestinal (Abdomen): normal bowel sounds, soft, nontender, no hepatosplenomegaly Musculoskeletal: Extremities: no cyanosis Skin: no rashes, warm and dry + turgor decreased Neurologic: awake; not confused Results & Data Vital Signs (Past 12 Hours) Vital Signs Temp Pulse Pulse Resp BP Pulse Ox 09/28/19 08:44 60 09/28/19 07:31 36.6 C 60 18 130/67 96 09/28/19 04:30 142/84 H 09/28/19 03:09 36.6 C 59 L 19 179/77 H 97 09/28/19 00:28 70 09/27/19 23:01 36.7 C 60 18 132/65 95 Laboratory Results Laboratory Results - last 24 hr 09/28/19 09/28/19 09/28/19 05:48 05:48 05:48 WBC 6.83 RBC 4.48 Hgb 9.7 L Hct 31.6 L MCV 70.5 L MCH 21.7 L MCHC 30.7 L RDW Std Deviation 51.1 H RDW Coeff of Concepcion 19.7 H Plt Count 202 MPV 9.8 Immature Gran % (Auto) 0.1 Neut % (Auto) 71.2 Lymph % (Auto) 14.1 [place] % (Auto) 11.7 Eos % (Auto) 2.5 Baso % (Auto) 0.4 Immature Gran # (Auto) 0.01 Neut # (Auto) 4.86 Lymph # (Auto) 0.96 L [place] # (Auto) 0.80 H Eos # (Auto) 0.17 Baso # (Auto) 0.03 Hypochromasia Present Microcytosis Present Ovalocytes 1+ PT 16.6 H INR 1.6 H Sodium 139 Potassium 3.4 L Chloride 111 H Carbon Dioxide 22 Anion Gap 5.0 BUN 70 H Creatinine 2.08 H D Est Cr Clr Drug Dosing 19.8 Est GFR ( Amer) 23.9 Est GFR (Non-Af Amer) 20.6 BUN/Creatinine Ratio 33.6 H Glucose 107 H Calcium 8.2 L Magnesium 1.9 PG Care Time/CCT Total # of Minutes Spent Total Time Spent with Patient: Total time spent is greater than 50% in coordination of care (as documented) at patient's floor/unit and/or counseling patient: Coding Level of Care Code 17441 Subseq Hosp Care Lvl 3 Diagnoses Acute renal failure N17.9 Acute renal failure type: unspecified Benign essential hypertension I10 Metabolic acidosis E87.2 (1) Acute renal failure Acute renal failure type: unspecified Qualified Code(s): N17.9 - Acute kidney failure, unspecified
--- NOTE | 2019-09-28 11:03 | Family Medicine Progress Note ---
Date of Service September 28, 2019 Assessment & Plan (1) Diarrhea: Ms King is an 89 year old female with history of CHF, HTN, Afib/Aflutter, CAD admitted with acute renal failure and diarrhea. (1) Acute renal failure: improving Baseline Creatinine 0.9-1.0; on admission Cr 6.62-->4.37-->2.08 Suspect this is a prerenal PETER. Her renal function seems to be recovering nicely with fluids. Renal ultrasound shows some cortical thinning, but no evidence of obstruction. Urine studies are bland. IVFs: 0.45%NS + 50mEq NaHCO3 + 20mEq KCL @ 75/hr holding nephrotoxic agents--lasix, spironolactone, and ramipril Appreciate continued nephrology recommendations (2) Acute hyponatremia: resolved Due to hypovolemia. Na on admission 129-->139 today Follow Na levels (3) Metabolic acidosis: Related to bicarb losses in setting of diarrhea. - Continue IVFs as above - follow BMP (4) Acute dehydration: In setting of diarrhea, see above. (5) Diarrhea: C. diff negative on 09/24 and again on 09/26; stool cultures neg Started imodium to help slow loose stools. (6) Acute hypokalemia: improving K level 2.9 -->3.4 Potassium in IVFs, and repleting orally as well. (7) Hypomagnesemia: resolved Mg 1.6 yesterday-->1.9 after 2g IV mag follow Mg level (8) Chronic diastolic HF (heart failure): Echo in 2017 showed EF 55-60%, mild AR, mod , mild MR and mild TR. - Currently slightly volume depleted; IV fluids at 75 cc/hr. - Monitor I/Os and daily weights. - Continue Imdur as prescribed; holding home Lasix, spironolactone, and ACEI due to ARF. (9) Atrial flutter, paroxysmal: S/p AV junction ablation in Jun 2015; also had single chamber ventricular pacemaker placed. - Given Warfarin 3 mg yesterday (decreased dose as she has significantly supratherapeutic INR earlier this week) - INR was subtherapeutic today at 1.6-->will increase back up to home coumadin dose of 6mg tonight. - home coumadin is 6mg daily. - Not currently on rate controlling agents. (10) Benign essential hypertension: - Continue Imdur as prescribed. - Hold Ramipril due to ARF. (11) CAD (coronary artery disease): - Has had a total of 5 coronary stents, LAD on 2 occasions with most recently in 2009. - Continue ASA 81 mg daily and Imdur as prescribed; holding home ACEI due to ARF, not currently on statin or BB. (12) Microcytic anemia: - hgb 9.7, baseline ~9-10 - iron studies unremarkable. (13) GERD (gastroesophageal reflux disease): - PPI daily. FEN: heart healthy DVT ppx: SCDs and home Coumadin. CODE status: FULL Dispo: Med/surg with tele for acute renal failure. If loose stools are improved, can plan to discharge back to [facility]. CM aware. Note, on contact precautions for history of MRSA. May need 3 neg nasal MRSA swabs to remove contact precautions (2) GERD (gastroesophageal reflux disease): (3) Microcytic anemia: (4) CAD (coronary artery disease): (5) Chronic diastolic HF (heart failure): (6) Acute renal failure: (7) Acute dehydration: (8) Acute hyponatremia: (9) Acute hypokalemia: (10) Benign essential hypertension: (11) Atrial flutter: Admission and Anticipated Discharge Date Admission Date: September 26, 2019 Subjective Reviewed overnight events. Reports that she did not sleep well overnight. Feeling very tired after eating breakfast. She has been working with PT/OT. Denies nausea or vomiting. Denies abdominal pain. Still having some loose stool. Review of Systems Constitutional: + fatigue and + weakness; no fever and no chills Gastrointestinal: + diarrhea/loose stools; no abdominal pain, no nausea, no vomiting, no constipation and no blood in stools Physical Exam Constitutional: WD/WN, vitals as above no acute distress Eyes: PERRL, conjunctivae normal, anicteric sclerae ENMT: external ear and nose normal, oropharynx normal Neck: normal visual inspection Respiratory: normal respiratory effort, lungs clear to auscultation no respiratory distress Cardiovascular: Rate/Rhythm: regular rate and regular rhythm Extremities: no edema Gastrointestinal (Abdomen): normal bowel sounds, soft, nontender, no hepatosplenomegaly Skin: no rashes, warm and dry Neurologic: PERRL, EOMI, accommodation nl, no face palsy, no dysarthria Psychiatric: A+Ox3, euthymic affect Results & Data ([facility]) Vital Signs (Past 12 Hours) Vital Signs Temp Pulse Pulse Resp BP Pulse Ox 09/28/19 08:44 60 09/28/19 07:31 36.6 C 60 18 130/67 96 09/28/19 04:30 142/84 H 09/28/19 03:09 36.6 C 59 L 19 179/77 H 97 09/28/19 00:28 70 09/27/19 23:01 36.7 C 60 18 132/65 95 (1) Acute renal failure Acute renal failure type: unspecified Qualified Code(s): N17.9 - Acute kidney failure, unspecified
[2019-09-28] MEDS: SODIUM BICARBONATE IV SCH (13:43)
[2019-09-28] MEDS: [UNRECOGNIZED DRUG - OTHER] IV SCH (13:43)
[2019-09-28] MEDS: POTASSIUM CHLORIDE IV SCH (13:43)
[2019-09-28] MEDS: LOPERAMIDE HCL 2 MG CAP PO SCH ×2 (13:57→17:15)
[2019-09-28] MEDS: WARFARIN SOD 6 MG TAB PO SCH (16:36)
[2019-09-28] MEDS: POTASSIUM CHLORIDE 20 MEQ TABCR PO SCH (19:56)
[2019-09-29] MEDS: LOPERAMIDE HCL 2 MG CAP PO SCH ×5 (00:09→23:21)
[2019-09-29] MEDS: SODIUM BICARBONATE IV SCH (02:36)
[2019-09-29] MEDS: POTASSIUM CHLORIDE IV SCH (02:36)
[2019-09-29] MEDS: [UNRECOGNIZED DRUG - OTHER] IV SCH (02:36)
[2019-09-29 05:53] LABS: Hemoglobin 9.9 g/dL (12.0-16.0); Mean Corpuscular Hemoglobin 21.6 pg (25-34); Mean Corpuscular Volume 72.1 fL (80-100); Mean Platelet Volume 9.8 fL (7.4-10.4); Platelet Count 205 K/uL (130-400); RDW Standard Deviation 52.1 fL (36.4-46.3); Red Blood Count 4.58 M/uL (4.2-5.4); White Blood Count 6.11 K/uL (4.8-10.8)
[2019-09-29 06:02] LABS: INR 1.9 (0.9-1.1); Prothrombin Time 19.5 Seconds (9.0-12.0)
[2019-09-29 06:29] LABS: BUN Creatinine Ratio 32.7 (10-20); Calcium 8.6 mg/dl (8.5-10.1); Creatinine Clr Calc Pharmacy 31.2 ml/min; Est GFR (Non-African American) 35.4; Magnesium 1.6 mg/dl (1.8-2.4)
[2019-09-29] MEDS: ISOSORBIDE DINITRATE 20 MG TAB PO SCH ×2 (06:33→16:39)
[2019-09-29] MEDS: PANTOprazole 40 MG TAB PO SCH (09:03)
[2019-09-29] MEDS: POTASSIUM CHLORIDE 20 MEQ TABCR PO SCH ×2 (09:03→20:26)
[2019-09-29] MEDS: ASPIRIN 81 MG ECTAB PO SCH (09:03)
[2019-09-29] MEDS: ACETAMINOPHEN 325 MG TAB PO PRN ×2 (09:21→20:28)
--- NOTE | 2019-09-29 09:36 | Nephrology Progress Note ---
Date of Service September 29, 2019 Assessment & Plan (1) Acute renal failure: -- PETER due to dehydration in the setting of BEN inhibitor and continued diuretic use. Benign urine sediment. Renal US negative for obstruction -- Kidney function improving w/ IV hydration. Creatinine has improved from 4.3 to 1.3. -- Heplock IV -- Patient is nearing baseline kidney function. No further Nephrology evaluation needed at this time. Will sign off. Please call if further assistance needed (2) Benign essential hypertension: -- Hold Ramipril, Furosemide and Spironolactone until diarrhea is controlled and then slowly reintroduce if needed Subjective Ms. King was seen & examined in her hospital room this morning. She continues to have diarrhea but voices no new medical concerns Review of Systems Constitutional: + weakness; no fever Eyes: no worsening vision and no problem reported Ear, Nose, Mouth, Throat: no problem reported Respiratory: no cough and no dyspnea Cardiovascular: no chest pain, no palpitations and no edema Gastrointestinal: + diarrhea/loose stools; no abdominal pain and no vomiting Genitourinary: no dysuria and no hematuria Musculoskeletal: no back pain Integumentary: no rash Neurologic: no falls, no dizziness and no confusion Physical Exam Constitutional: + thin and + frail appearing Eyes: PERRL, conjunctivae normal, anicteric sclerae ENMT: Mouth: + dry oral mucous membranes Neck: trachea midline, no thyromegaly Respiratory: normal respiratory effort, lungs clear to auscultation Cardiovascular: RRR, no murmur, no edema Gastrointestinal (Abdomen): normal bowel sounds, soft, nontender, no hepatosplenomegaly Musculoskeletal: Extremities: no cyanosis Skin: no rashes, warm and dry + turgor decreased Neurologic: awake; not confused Results & Data Vital Signs (Past 12 Hours) Vital Signs Temp Pulse Pulse Resp BP Pulse Ox 09/29/19 07:27 66 09/29/19 07:00 36.5 C 59 L 20 180/80 H 96 09/29/19 02:38 36.9 C 60 18 147/72 H 94 09/28/19 23:45 60 09/28/19 23:01 36.8 C 60 18 159/78 H 95 Laboratory Tests 09/29/19 09/29/19 05:42 05:42 WBC 6.11 Hgb 9.9 L Hct 33.0 L Plt Count 205 Sodium 140 Potassium 4.0 D Chloride 110 H Carbon Dioxide 25 BUN 44 H Creatinine 1.33 H D Calcium 8.6 PG Care Time/CCT Total # of Minutes Spent Total Time Spent with Patient: Total time spent is greater than 50% in coordination of care (as documented) at patient's floor/unit and/or counseling patient: Coding Level of Care Code 82005 Subseq Hosp Care Lvl 3 Diagnoses Acute renal failure N17.9 Acute renal failure type: unspecified Benign essential hypertension I10 (1) Acute renal failure Acute renal failure type: unspecified Qualified Code(s): N17.9 - Acute kidney failure, unspecified
[2019-09-29] MEDS ORDERED: MAGNESIUM OXIDE 400 MG TAB PO ONE (11:23)
--- NOTE | 2019-09-29 14:39 | Family Medicine Progress Note ---
Date of Service September 29, 2019 Assessment & Plan (1) Diarrhea: 89 year old female h/o CHF, HTN, Afib/Aflutter, CAD w/ ARF 2/2 diarrhea, C diff negative Acute renal failure - improved - 1.33 today. Tolerating POI, with resolution of lightheadedness/headache. D/C IVF and encourage POI. Holding lasix, spironolactone and ramipril Diarrhea - encourage immodium use, monitor output Hypomagnesemia - repleted PO today, will do IV if needed Chronic diastolic HF - 2016 echo EF 55-60% - avoid overuse of fluid. Continue Imdur. Holding other medications as above. AF, paroxysmal - warfarin 6mg and monitor INR HTN - Imdur, holding ramapril but can restart on discharge if needed or in outpatient if not. CAD s/p stent x 5 - ASA, imdur Anemia, microcytic - stable Hypokalemia - resolved Hyponatremia - resolved FEN: heart healthy DVT ppx: SCDs and home Coumadin. CODE status: FULL Dispo: Med/surg with tele - can step to Med/surg if diarrhea does not cruzito for d/c tomorrow to [facility] for SNF. CM Aware. Note, on contact precautions for history of MRSA. May need 3 neg nasal MRSA swabs to remove contact precautions Admission and Anticipated Discharge Date Admission Date: September 26, 2019 Subjective Initial evaluation today, patient was increased somnolence but still answering questions appropriately. On re-evaluation at ~1200, patient is interactive and alert, remembers me including my eye color and undergraduate education. Oriented x 3. Still having diarrhea. Lightheadedness has improved throughout the day and is not a complaint by 12. Review of Systems Constitutional: + weakness; no fever and no chills Respiratory: no cough, no dyspnea and no wheezing Cardiovascular: no chest pain, no palpitations and no edema Gastrointestinal: + diarrhea/loose stools; no nausea, no vomiting and no constipation Neurologic: no tingling, no syncope and no headache(s) Physical Exam Constitutional: WD/WN, vitals as above Eyes: PERRL, conjunctivae normal, anicteric sclerae Respiratory: normal respiratory effort, lungs clear to auscultation Cardiovascular: RRR, no murmur, no edema Gastrointestinal (Abdomen): normal bowel sounds, soft, nontender, no hepatosplenomegaly Psychiatric: A+Ox3, euthymic affect Cognition: remote memory grossly intact Insight: good insight Results & Data ([facility]) Vital Signs (Past 12 Hours) Vital Signs Temp Pulse Pulse Resp BP Pulse Ox 09/29/19 11:24 36.9 C 60 20 107/54 L 94 09/29/19 11:01 60 125/75 95 09/29/19 07:27 66 09/29/19 07:00 36.5 C 59 L 20 180/80 H 96
[2019-09-29] MEDS: WARFARIN SOD 6 MG TAB PO SCH (16:39)
[2019-09-30] MEDS: ISOSORBIDE DINITRATE 20 MG TAB PO SCH ×2 (06:05→16:01)
[2019-09-30] MEDS: LOPERAMIDE HCL 2 MG CAP PO SCH ×4 (06:05→23:28)
[2019-09-30 06:15] LABS: Hematocrit (blood only) 35.7 % (37-47); Hemoglobin 10.5 g/dL (12.0-16.0); Mean Corpuscular Hemoglobin 21.4 pg (25-34); Mean Corpuscular Hgb Conc 29.4 g/dL (32-36); Mean Corpuscular Volume 72.9 fL (80-100); Mean Platelet Volume 9.7 fL (7.4-10.4); Platelet Count 229 K/uL (130-400); RDW Coefficient of Variation 20.3 % (11.5-14.5); RDW Standard Deviation 53.5 fL (36.4-46.3); White Blood Count 7.36 K/uL (4.8-10.8)
[2019-09-30 06:29] LABS: INR 2.3 (0.9-1.1); Prothrombin Time 23.2 Seconds (9.0-12.0)
[2019-09-30 06:45] LABS: BUN Creatinine Ratio 23.9 (10-20); Calcium 8.9 mg/dl (8.5-10.1); Creatinine Clr Calc Pharmacy 32.6 ml/min; Est GFR (African American) 43.3; Est GFR (Non-African American) 37.4; Magnesium 1.5 mg/dl (1.8-2.4); Potassium 4.4 mmol/L (3.5-5.1)
[2019-09-30] MEDS: PANTOprazole 40 MG TAB PO SCH (08:02)
[2019-09-30] MEDS: POTASSIUM CHLORIDE 20 MEQ TABCR PO SCH ×2 (08:02→19:44)
[2019-09-30] MEDS: ASPIRIN 81 MG ECTAB PO SCH (08:02)
[2019-09-30] MEDS ORDERED: ONDANSETRON 4 MG OD TAB PO PRN (10:21)
[2019-09-30] MEDS: ENALAPRIL MALEATE 10 MG TAB PO SCH ×2 (11:12→19:46)
[2019-09-30] MEDS: SPIRONOLACTONE 12.5 MG TAB PO SCH (11:12)
--- NOTE | 2019-09-30 13:31 | Family Medicine Progress Note ---
Date of Service September 30, 2019 Assessment & Plan (1) Diarrhea: 89 year old female h/o CHF, HTN, Afib/Aflutter, CAD w/ ARF 2/2 diarrhea, C diff negative Acute renal failure - improved - 1.27. Tolerating POI. Holding lasix. HTN - continue Imdur, restart ramapril and spironolactone for BP control and monitor Diarrhea - encourage immodium use, monitor output. Gradually improving though still subjectively unable to keep up with POI. Hypomagnesemia - repleted 2gm IV Chronic diastolic HF - 2016 echo EF 55-60% - avoid overuse of fluid. Continue Imdur. Holding other medications as above. AF, paroxysmal - warfarin 6mg and monitor INR CAD s/p stent x 5 - ASA, imdur Anemia, microcytic - stable Hypokalemia - resolved Hyponatremia - resolved FEN: heart healthy DVT ppx: SCDs and home Coumadin. CODE status: FULL Dispo: Med/surg with tele - can step to Med/surg if diarrhea does not cruzito for d/c tomorrow to [facility] for SNF. CM Aware. Note, on contact precautions for history of MRSA. May need 3 neg nasal MRSA swabs to remove contact precautions Admission and Anticipated Discharge Date Admission Date: September 26, 2019 Subjective Pt seen and examined at bedside. Some improvement in loose stools, though still having 4-5 bowel movements a day with intermittent bloating/abdominal discomfort epigastrically without acute pain described. No vomiting reported. Resolution of lightheadedness subjectively and no headache at present. Interactivity still waxing and waning but AAOx3 and appropriate. Review of Systems Constitutional: + fatigue; no fever and no chills Respiratory: no cough, no chest congestion, no dyspnea and no wheezing Cardiovascular: no chest pain, no palpitations and no edema Gastrointestinal: + nausea and + diarrhea/loose stools; no abdominal pain, no vomiting and no constipation Physical Exam Constitutional: WD/WN, vitals as above no acute distress Respiratory: normal respiratory effort, lungs clear to auscultation Cardiovascular: RRR, no murmur, no edema Heart Sounds: normal S1 and normal S2 Gastrointestinal (Abdomen): Inspection/Auscultation: abdomen normal to inspection and normal bowel sounds; abdomen not distended Percussion/Palpation: + abdomen tender (mild epigastric discomfort without pain) and abdomen soft Neurologic: PERRL, EOMI, accommodation nl, no face palsy, no dysarthria Psychiatric: A+Ox3, euthymic affect Speech: normal rate/rhythm/volume of speech Results & Data ([facility]) Vital Signs (Past 12 Hours) Vital Signs Temp Pulse Pulse Resp BP Pulse Ox 09/30/19 11:00 36.8 C 60 20 139/81 92 09/30/19 08:40 60 09/30/19 07:27 36.4 C L 65 18 185/88 H 93 09/30/19 04:36 36.3 C L 60 18 173/81 H 96
[2019-09-30] MEDS: MAGNESIUM SULFATE / D5W 1 GM/100 ML BAG IV SCH ×2 (13:44→14:36)
[2019-09-30] MEDS: WARFARIN SOD 6 MG TAB PO SCH (16:00)
[2019-09-30] MEDS: ACETAMINOPHEN 325 MG TAB PO PRN (19:43)
[2019-10-01] MEDS: LOPERAMIDE HCL 2 MG CAP PO SCH ×2 (05:52→11:48)
[2019-10-01] MEDS: ISOSORBIDE DINITRATE 20 MG TAB PO SCH (05:52)
[2019-10-01] MEDS: ASPIRIN 81 MG ECTAB PO SCH (08:22)
[2019-10-01] MEDS: POTASSIUM CHLORIDE 20 MEQ TABCR PO SCH (08:22)
[2019-10-01] MEDS: SPIRONOLACTONE 12.5 MG TAB PO SCH (08:22)
[2019-10-01] MEDS: PANTOprazole 40 MG TAB PO SCH (08:22)
[2019-10-01] MEDS: ENALAPRIL MALEATE 10 MG TAB PO SCH (08:22)
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
== END 2019-10-01 14:10 | DRG 683 ==
LOC: ED 14:26 → 2N 15:20 → SUATTDRO 15:20 → 2N 17:10